=== PATIENT | female | born 1960 | race Caucasian/White ===

== ENCOUNTER → 2018-04-23 15:24 | Outpatient (CLI) | payer BC, SELFPAY ==
--- NOTE | 2018-04-23 | DI.MG.S_ITS ---
BILATERAL DIGITAL SCREENING MAMMOGRAM 3D/2D WITH CAD: 04/23/2018 CLINICAL: Routine screening. Comparison is made to exams dated: 03/17/2017 mammogram, 01/15/2016 mammogram, and 08/01/2014 mammogram - [facility]. The tissue of both breasts is predominantly fatty. Current study was also evaluated with a Computer Aided Detection (CAD) system. No significant masses, calcifications, or other findings are seen in either breast. There has been no significant interval change. IMPRESSION: NEGATIVE There is no mammographic evidence of malignancy. A 1 year screening mammogram is recommended. This exam was interpreted at Station ID: [id number]. NOTE: For mammograms, a report in lay terms will be sent to the patient. Approximately 15% of breast malignancies will not be visualized mammographically. In the management of a palpable breast mass, a negative mammogram must not discourage biopsy of a clinically suspicious lesion. Electronically Signed By: Robert bowser/jose manuel:04/23/2018 17:31:23 copy to: Jennifer Segal letter sent: Normal Exam ACR BI-RADS Category 1: Negative [id number]
== END ==
PROVIDERS: Family Provider Family Medicine; PCP Family Medicine; Visit Provider Family Medicine
DX: Z12.31 Encounter for screening mammogram for malignant neoplasm of breast (principal)
CPT/HCPCS: 77063; 77067

== ENCOUNTER → 2018-05-28 15:15 | Outpatient (CLI) | payer BC, SELFPAY ==
[2018-05-28 18:33] LABS: Thyroid Stimulating Hormone 2.27 uIU/mL (0.47-4.68)
== END ==
PROVIDERS: Visit Provider Internal Medicine
DX: E03.9 Hypothyroidism, unspecified (principal)
CPT/HCPCS: 36415; 84443

== ENCOUNTER → 2018-06-20 10:59 | Outpatient (CLI) | payer BC, SELFPAY ==
[2018-06-20 12:16] LABS: Add Manual Diff / Slide Review NO; Basophils Percent Auto 0.7 % (0-2); Hematocrit 41.3 % (36-46); Hemoglobin 14.1 g/dL (12.0-16.0); Mean Corpuscular HGB Conc 34.1 % (30-36); Mean Corpuscular Hemoglobin 27.9 PG (26-34); Mean Corpuscular Volume 81.7 fL (80-100); Monocytes Percent Auto 8.5 % (3-14); Neutrophils Absolute Auto 5000 /uL (3000-5900); Neutrophils Percent Auto 57.8 % (50-75); Platelet Count 353 X10^3/uL (150-400); Red Blood Cell Count 5.05 X10^6/uL (4.0-5.2); Red Cell Distribution Width 13.8 % (11.6-14.8); White Blood Cell Count 8.7 X10^3/uL (4.5-11.0)
[2018-06-20 12:33] LABS: Alanine Aminotransferase 29 IU/L (9-52); Albumin 4.1 g/dL (3.5-5.0); Albumin Globulin Ratio 1.3 (1.0-2.8); Alkaline Phosphatase 108 U/L (38-126); Aspartate Aminotransferase 23 IU/L (14-36); BUN Creatinine Ratio 18.6 (6-22); Bilirubin Total 0.4 mg/dL (0.2-1.3); Blood Urea Nitrogen 13 mg/dL (7-17); Calcium 9.1 mg/dL (8.4-10.2); Carbon Dioxide 30 mmol/L (22-32); Chloride 103 mmol/L (98-107); Cholesterol 178 mg/dL (140-199); Estimated Glomerular Filt Rate > 60.0 mL/min (>60); Globulin 3.1 g/dL (1.7-4.1); Glucose 98 mg/dL (70-100); HDL Cholesterol 42 mg/dL (40-60); HEMOLYSIS < 15 (0-50); LDL Cholesterol Calculated 106 mg/dL (<100); Sodium 143 mmol/L (137-145); Total Protein 7.2 g/dL (6.3-8.2); Triglycerides 151 mg/dL (35-150)
== END ==
PROVIDERS: Visit Provider Internal Medicine
DX: I10 Essential (primary) hypertension (principal); D72.829 Elevated white blood cell count, unspecified
CPT/HCPCS: 36415; 80053; 80061; 85025

== ENCOUNTER → 2018-11-09 12:46 | Outpatient (CLI) | payer BC, SELFPAY ==
--- NOTE | 2018-11-09 12:53 | DI.RAD.S_ITS ---
PROCEDURE: XR ABDOMEN 1V INDICATIONS: evaluate severity of constipation TECHNIQUE: One view of the abdomen acquired. COMPARISON: [facility] [place], [place], SPINE LUMB 6+VW, 06/20/2016, 15:21. FINDINGS: Surgical changes and devices: Laparoscopic gastric banding Bowel: Bowel gas pattern is normal. Mild to moderate stool Soft tissues: 3 mm left abdominal calcification is unchanged since 06/20/16 projecting in the region of the left kidney. Visualized solid organ contours appear normal in size. Bones: No suspicious bony lesions. Lateral curvature of the spine and scattered discogenic changes. IMPRESSION: No specific evidence of bowel obstruction seen at this time although if the patient's symptoms do not improve, continued surveillance with abdominal series radiographs could be performed. Dictated by: Kyler Mcpherson M.D. on 11/09/2018 at 15:06 Approved by: Kyler Mcpherson M.D. on 11/09/2018 at 15:07
[2018-11-09 15:08] LABS: Alanine Aminotransferase 33 IU/L (9-52); Albumin 4.3 g/dL (3.5-5.0); Albumin Globulin Ratio 1.4 (1.0-2.8); Alkaline Phosphatase 105 U/L (38-126); Aspartate Aminotransferase 25 IU/L (14-36); BUN Creatinine Ratio 14.3 (6-22); Bilirubin Total 0.4 mg/dL (0.2-1.3); Blood Urea Nitrogen 10 mg/dL (7-17); Calcium 9.4 mg/dL (8.4-10.2); Carbon Dioxide 29 mmol/L (22-32); Chloride 101 mmol/L (98-107); Estimated Glomerular Filt Rate > 60.0 mL/min (>60); Globulin 3.1 g/dL (1.7-4.1); Glucose 85 mg/dL (70-100); HEMOLYSIS < 15 (0-50); Lipase 49 U/L (23-300); Potassium 4.2 mmol/L (3.4-5.1); Sodium 139 mmol/L (137-145); Total Protein 7.4 g/dL (6.3-8.2)
== END ==
PROVIDERS: PCP Family Medicine; Visit Provider Family Medicine
DX: R10.9 Unspecified abdominal pain (principal); K59.00 Constipation, unspecified
CPT/HCPCS: 36415; 74018; 80053; 83690

== ENCOUNTER → 2018-12-20 13:57 | Outpatient (CLI) | payer BC, SELFPAY ==
--- NOTE | 2019-01-04 14:39 | P.HOLT.S_ITS ---
Key Punch Operator Report Referral & Results Date Patient Seen: 12/20/18 Requesting provider: Erica White Indication: Palpitations Duration of monitoring (days): 3 Diary information: There are no patient diary entries 2 patient triggered events associated with sinus rhythm and PACs Data: Minimum heart rate was 44 beats per minute at 10:35 on 12/22/2018 Maximum heart rate was 135 beats per minute at 14:41 on 12/22/2018 Less than 1% of identified beats were either supraventricular ventricular ectopic in origin Patient did have 8 runs of an atypical supraventricular tachycardia the fastest being 114 beats per minute and comprising 7 beats. The longest was 25.9 sec with a rate of 100 beats per minute Impression: No clear etiology for patient's reported palpitations. Supraventricular dysrhythmia as above was present however cannot be ruled out as a source of symptoms. Clinical correlation suggested
== END ==
PROVIDERS: PCP Family Medicine; Visit Provider Family Medicine
DX: R00.2 Palpitations (principal)
CPT/HCPCS: 0296T; 0298T

== ENCOUNTER 2019-01-25 14:30 | Outpatient (RCR) | payer BC, SELFPAY ==
--- NOTE | 2018-12-28 14:45 | PT.OPPOC ---
Current Diagnoses Pain in thoracic spine (12/28/18) Provider Visit Care Team Role Provider Type Erica White MD Primary Care Provider Physician Specialty: Family Practice Address: [address] [place] [address], [id number] Email: [email or web address] KEVIN Archibald Attending Provider Advanced Enrollment Eligibility Representative Specialty: Medical Address: [address] [place] [address], [id number] Email: Plan Of Care PT-OP-T Assessment and Plan Start: 12/28/18 16:34 Freq: Status: Active Protocol: Document 12/28/18 14:45 [facility] (Rec: 12/28/18 17:08 [facility] [email or web address]) Physical Therapy Assessment Rehab Potential Rehabilitation Potential Good Evaluation Complexity Number of Personal Factors/Comorbidities 1-2 Number of Body Systems Impaired 3 Clinical Presentation at Evaluation Stable Impairments Impairments Functional Mobility Pain Posture ROM Soft Tissue Mobility Strength Other Concerns Barriers to Rehabilitation pt to have hernia repair in January of 2019, may prolong treatment if on precautions s/ p surgical intervention Goals pain Impairment pain rated at 6/10 at highest with movements Short Term Goal (STG) Decrease pain to 3/10 or less with initial movements after prolonged sitting or sleeping. 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 lumbar/thoracic rotation Impairment impaired lumbothoracic rotation Information Technology Account Manager Goal (LTG) Restor normal R sided combined lumbothoracic rotation equal to the L side without c/o pain prior to d/c to tolerate functional movements with combined reaching and rotation of the thorax. LTG Duration 8 weeks UE weakness Impairment RUE weakness Short Term Goal (STG) R shoulder manual muscle testing 5/5, lower trapezius 4 /5. STG Duration 4 weeks [facility] Goal (LTG) R shoulder manual muscle testing 5/5 and lower trapezius at least 4+/5 to demonstrate improved scapular and shoulder stabilization. LTG Duration 8 weeks Assessment Summary Assessment Pt presents with impaired sitting and standing posture, as well as weakness with R lower trapezius manual muscle testing (and R sided abduction and flexion compared to the L ). Her pain with tenderness and increased tone in the lower trapezius and latissimus dorsi may indicate possible strain of this posterior thoracic musculature. Pt also with increased pain in R sided quadratus lumborum, which may be aggravated with recent episodes of R sided sciatic pain as well. Pt had positive sign of impingement of the R shoulder with Chan-Donald testing, but other impingement testing negative at this time for impingement. Pt would benefit from skilled physical therapy to decrease pain, improve lumbothoracic range of motion, improve sitting and standing posture and progress shoulder and scapulothoracic musculature to assist with return to work tasks and sleeping without issues. Physical Therapy Plan Frequency and Duration Frequency of Treatment 2x/Week Duration of Treatment 8 weeks Plan of Care Start Date 12/28/18 Plan of Care End Date 02/22/19 Therapeutic Interventions Therapeutic Interventions Aquatic Therapy Home Exercise Program Joint Mobilizations Manual Therapy Neuromuscular Re-education Patient/Caregiver Education Self-Care/Home Management Soft Tissue Mobilization Taping Therapeutic Activities Therapeutic Exercises Modalities Cold Pack/Ice Massage Electric Stimulation Hot Packs Ultrasound Next Visit Focus/Plan Next Note Type Treatment Note Next Visit Plan STR lat and lower trap, shoulder strengthening/ stabilization; quadruped thread the needle, prayer stretch; push-up plus vs wall initially. Plan of Care Dates Plan of Care Start Date 12/28/18 Plan of Care End Date 02/22/19 Please Sign and Return: I have reviewed this Plan of Care and certify that the skilled therapy services above are required to meet the patient?s needs. Physician Signature Date Printed Name and Credentials Clinical Instructor Signature Printed Name and Credentials
--- NOTE | 2018-12-28 14:45 | PT.OIE ---
Current Diagnoses Pain in thoracic spine (12/28/18) Past Medical History (Last Reviewed 10/01/18 @ 10:34 by Radha Srinivasan MD) Essential tremor (Chronic) Intermittent asthma (Chronic) Benign essential hypertension (Chronic) Hypothyroid (Chronic) HTN (hypertension) (Chronic) Seasonal allergies (Chronic) Past Surgical History (Last Reviewed 10/01/18 @ 10:34 by Radha Srinivasan MD) Hx of laparoscopic gastric banding (Resolved) Status post surgery (Resolved 07/23/08) Provider Visit Care Team Role Provider Type Erica White MD Primary Care Provider Physician Specialty: Family Practice Address: [address] [place] [address] Email: [email or web address] KEVIN Archibald Attending Provider Advanced Algebra Teacher Specialty: Medical Address: [address] [place] [address], [facility] Email: Physical Therapy Initial Evaluation PT-OP-A Visit Information Start: 12/28/18 16:34 Freq: Status: Active Protocol: Document 12/28/18 14:45 [facility] (Rec: 12/28/18 17:08 [facility] [email or web address]) Out-Patient Physical Therapy Visit Information Visit Information Visit Type Initial Evaluation Visit Start Time 14:45 Visit Stop Time 15:25 Total Visit Minutes 40 Visit Number 1 Number of MED AIDE Visits 0 Evaluation Information Evaluation Date 12/28/18 PT-OP-B Current Condition Start: 12/28/18 16:34 Freq: Status: Active Protocol: Document 12/28/18 14:45 [facility] (Rec: 12/28/18 17:08 [facility] [email or web address]) Current Condition History of Current Condition Onset Date 10/16/2018 Current Complaints R sided mid-low back pain History of Current Condition Pt is a 58 y/o female presenting to physical therapy with a c/o R sided mid to low back pain, onset 2017. Pt denies any JACK, notes that pain just occured at that time. She saw a chiropractor for one visit but felt he was too aggressive with his treatment. She states that her R side sciatica is aggravated off/on at this time also. 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 upon waking up when sleeping or prolonged sitting then getting up). She denies any changes in bowel/ bladder function, and states her blood work was WNL per her physician. Pt is R hand dominant. Pain comes and goes but other than going from prolonged sitting on sleeping then up and moving is when it is at its worst. She denies any shoot pain down or up the back/neck, but again does have a h/o sciatic on the R side and admits it still does cause some numbness in buttock region from time to time but no correlation she believes with this new pain. No imaging has been performed. She had radiographs done by her chiropractor. She has lost 10 lbs in the last 5 wks being on a plant-based diet and no sugar consumption. Prior Treatments and Tests chiropractor for 1 visit, but did not return, blood work reportedly negative by pt. Future Testing and Treatments Planned MRI if not improved with PT. Treatment Goals Patient/Caregiver Goals decrease pain Personal Factors Other Personal Factors That May Effect h/o R sided sciatica, OA, Therapy/Recovery current hernia (being repaired 01/26/19), occasional neck pain PT-OP-C Subjective Start: 12/28/18 16:34 Freq: Status: Active Protocol: Document 12/28/18 14:45 [facility] (Rec: 12/28/18 17:08 [facility] [email or web address]) OP-PT Subjective Patient Comments Patient Comments pt notes pain is somewhat better but still present Patient Reported Progress Improving Patient Questionnaires Oswestry Low Back Index Oswestry Score 24 Oswestry Impairment 20 to 39% Impaired (Score 20- 39) OP-PT Pain Assessment Location R sided mid-back Intensity 6 Scale Used Numeric (1 - 10) Description Aching Frequency Intermittent Pain Aggravating Factors Changing Position Pain Alleviating Factors Heat Exercise Massage Home Pain Medication Use Pain Medications Used No PT-OP-F Manual Assessment Start: 12/28/18 16:34 Freq: Status: Active Protocol: Document 12/28/18 14:45 [facility] (Rec: 12/28/18 17:08 [facility] [email or web address]) Manual Assessments Soft Tissue Assessment Soft Tissue Mobility Assessment tenderness to palpation: R QL, lower trapezius, latissimus dorsi PT-OP-J Posture/Palpation/Skin Start: 12/28/18 16:34 Freq: Status: Active Protocol: Document 12/28/18 14:45 [facility] (Rec: 12/28/18 17:08 [facility] [email or web address]) Posture Evaluation Comments Posture Comments moderate rounded shoulders, flattened cervical spine, increased kyphosis in thoracic spine, increased lordosis in lumbar spine; SB R with elevated R shoulder in sitting PT-OP-K Range of Motion Start: 12/28/18 16:34 Freq: Status: Active Protocol: Document 12/28/18 14:45 [facility] (Rec: 12/28/18 17:08 [facility] [email or web address]) Lumbar Spine Range of Motion Lumbar Spine Active Percentage Comments combined lumbar and thoracic rotation: 100% L and 75% R with pain on the R with rotation Shoulder Goniometric Range of Motion Shoulder Measured in Degrees Left Active Shoulder ROM WFL Yes Testing Position Sitting Right Active Shoulder ROM WFL Yes Testing Position Sitting PT-OP-L Special Tests Start: 12/28/18 16:34 Freq: Status: Active Protocol: Document 12/28/18 14:45 [facility] (Rec: 12/28/18 17:08 [facility] [email or web address]) Special Tests Cervical Spine Special Tests Foraminal Compression Test Results negative B Spurling's Test Test Results negative B Shoulder Special Tests Lift-Off Rotator Cuff Test Results negative B Empty Can Test Results negative B Chan Donald Impingement Test Results positive R Neer Impingement Test Results negative B Elevation Impingement Test Results negative B PT-OP-M Strength Start: 12/28/18 16:34 Freq: Status: Active Protocol: Document 12/28/18 14:45 [facility] (Rec: 12/28/18 17:08 [facility] [email or web address]) Scapula Strength Scapula Manual Muscle Testing Right Elevation (C4) 5 Normal Left Elevation (C4) 5 Normal Shoulder Strength Shoulder Manual Muscle Testing Right Flexion 4+ Good+ Abduction (C5) 4 Good External Rotation 5 Normal Internal Rotation 5 Normal Comments lower trap 4-/5 d/t pain Left Flexion 5 Normal Abduction (C5) 5 Normal External Rotation 5 Normal Internal Rotation 5 Normal Comments lower trap 5/5 PT-OP-R Modalities Start: 12/28/18 16:34 Freq: Status: Active Protocol: Document 12/28/18 14:45 [facility] (Rec: 12/28/18 17:08 [facility] [email or web address]) Hot Pack/Cold Pack Treatment Hot Pack Patient Position Sitting Treatment Duration (minutes) 10 PT-OP-T Assessment and Plan Start: 12/28/18 16:34 Freq: Status: Active Protocol: Document 12/28/18 14:45 [facility] (Rec: 12/28/18 17:08 [facility] [email or web address]) Physical Therapy Assessment Rehab Potential Rehabilitation Potential Good Evaluation Complexity Number of Personal Factors/Comorbidities 1-2 Number of Body Systems Impaired 3 Clinical Presentation at Evaluation Stable Impairments Impairments Functional Mobility Pain Posture ROM Soft Tissue Mobility Strength Other Concerns Barriers to Rehabilitation pt to have hernia repair in January of 2019, may prolong treatment if on precautions s/ p surgical intervention Goals pain Impairment pain rated at 6/10 at highest with movements Short Term Goal (STG) Decrease pain to 3/10 or less with initial movements after prolonged sitting or sleeping. 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 lumbar/thoracic rotation Impairment impaired lumbothoracic rotation Project Mgr Goal (LTG) Restor normal R sided combined lumbothoracic rotation equal to the L side without c/o pain prior to d/c to tolerate functional movements with combined reaching and rotation of the thorax. LTG Duration 8 weeks UE weakness Impairment RUE weakness Short Term Goal (STG) R shoulder manual muscle testing 5/5, lower trapezius 4 /5. STG Duration 4 weeks Project Mgr Goal (LTG) R shoulder manual muscle testing 5/5 and lower trapezius at least 4+/5 to demonstrate improved scapular and shoulder stabilization. LTG Duration 8 weeks Assessment Summary Assessment Pt presents with impaired sitting and standing posture, as well as weakness with R lower trapezius manual muscle testing (and R sided abduction and flexion compared to the L ). Her pain with tenderness and increased tone in the lower trapezius and latissimus dorsi may indicate possible strain of this posterior thoracic musculature. Pt also with increased pain in R sided quadratus lumborum, which may be aggravated with recent episodes of R sided sciatic pain as well. Pt had positive sign of impingement of the R shoulder with Chan-Donald testing, but other impingement testing negative at this time for impingement. Pt would benefit from skilled physical therapy to decrease pain, improve lumbothoracic range of motion, improve sitting and standing posture and progress shoulder and scapulothoracic musculature to assist with return to work tasks and sleeping without issues. Physical Therapy Plan Frequency and Duration Frequency of Treatment 2x/Week Duration of Treatment 8 weeks Plan of Care Start Date 12/28/18 Plan of Care End Date 02/22/19 Therapeutic Interventions Therapeutic Interventions Aquatic Therapy Home Exercise Program Joint Mobilizations Manual Therapy Neuromuscular Re-education Patient/Caregiver Education Self-Care/Home Management Soft Tissue Mobilization Taping Therapeutic Activities Therapeutic Exercises Modalities Cold Pack/Ice Massage Electric Stimulation Hot Packs Ultrasound Next Visit Focus/Plan Next Note Type Treatment Note Next Visit Plan STR lat and lower trap, shoulder strengthening/ stabilization; quadruped thread the needle, prayer stretch; push-up plus vs wall initially.
--- NOTE | 2019-01-25 14:30 | PT.OTN ---
Current Diagnoses Pain in thoracic spine (01/25/19) Physical Therapy Treatment Note PT-OP-A Visit Information Start: 12/28/18 16:34 Freq: Status: Active Protocol: Document 01/25/19 14:30 [facility] (Rec: 01/25/19 15:10 [facility] [email or web address]) Out-Patient Physical Therapy Visit Information Visit Information Visit Type Treatment Note Visit Start Time 14:30 Visit Stop Time 15:00 Total Visit Minutes 30 Visit Number 2 Number of CATH LABORATORY TECHNICIAN Visits 0 Evaluation Information Evaluation Date 12/28/18 PT-OP-B Current Condition Start: 12/28/18 16:34 Freq: Status: Active Protocol: Document 12/28/18 14:45 [facility] (Rec: 12/28/18 17:08 [facility] [email or web address]) Current Condition History of Current Condition Onset Date 10/16/2018 Current Complaints R sided mid-low back pain History of Current Condition Pt is a 58 y/o female presenting to physical therapy with a c/o R sided mid to low back pain, onset 2017. Pt denies any JACK, notes that pain just occured at that time. She saw a chiropractor for one visit but felt he was too aggressive with his treatment. She states that her R side sciatica is aggravated off/on at this time also. 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 upon waking up when sleeping or prolonged sitting then getting up). She denies any changes in bowel/ bladder function, and states her blood work was WNL per her physician. Pt is R hand dominant. Pain comes and goes but other than going from prolonged sitting on sleeping then up and moving is when it is at its worst. She denies any shoot pain down or up the back/neck, but again does have a h/o sciatic on the R side and admits it still does cause some numbness in buttock region from time to time but no correlation she believes with this new pain. No imaging has been performed. She had radiographs done by her chiropractor. She has lost 10 lbs in the last 5 wks being on a plant-based diet and no sugar consumption. Prior Treatments and Tests chiropractor for 1 visit, but did not return, blood work reportedly negative by pt. Future Testing and Treatments Planned MRI if not improved with PT. Treatment Goals Patient/Caregiver Goals decrease pain Personal Factors Other Personal Factors That May Effect h/o R sided sciatica, OA, Therapy/Recovery current hernia (being repaired 01/26/19), occasional neck pain PT-OP-C Subjective Start: 12/28/18 16:34 Freq: Status: Active Protocol: Document 01/25/19 14:30 [facility] (Rec: 01/25/19 15:10 [facility] [email or web address]) OP-PT Subjective Patient Comments Patient Comments Pt states that her back is much better. She has lost 15 lbs since out last visit. She is walking outdoors but does get some increased sciatic issues. Pt postponed her hernia repair as her surgeon is leaving the practice. PT-OP-F Manual Assessment Start: 12/28/18 16:34 Freq: Status: Active Protocol: Document 12/28/18 14:45 [facility] (Rec: 12/28/18 17:08 [facility] [email or web address]) Manual Assessments Soft Tissue Assessment Soft Tissue Mobility Assessment tenderness to palpation: R QL, lower trapezius, latissimus dorsi PT-OP-J Posture/Palpation/Skin Start: 12/28/18 16:34 Freq: Status: Active Protocol: Document 12/28/18 14:45 [facility] (Rec: 12/28/18 17:08 [facility] [email or web address]) Posture Evaluation Comments Posture Comments moderate rounded shoulders, flattened cervical spine, increased kyphosis in thoracic spine, increased lordosis in lumbar spine; SB R with elevated R shoulder in sitting PT-OP-K Range of Motion Start: 12/28/18 16:34 Freq: Status: Active Protocol: Document 12/28/18 14:45 [facility] (Rec: 12/28/18 17:08 [facility] [email or web address]) Lumbar Spine Range of Motion Lumbar Spine Active Percentage Comments combined lumbar and thoracic rotation: 100% L and 75% R with pain on the R with rotation Shoulder Goniometric Range of Motion Shoulder Measured in Degrees Left Active Shoulder ROM WFL Yes Testing Position Sitting Right Active Shoulder ROM WFL Yes Testing Position Sitting PT-OP-L Special Tests Start: 12/28/18 16:34 Freq: Status: Active Protocol: Document 12/28/18 14:45 [facility] (Rec: 12/28/18 17:08 [facility] [email or web address]) Special Tests Cervical Spine Special Tests Foraminal Compression Test Results negative B Spurling's Test Test Results negative B Shoulder Special Tests Lift-Off Rotator Cuff Test Results negative B Empty Can Test Results negative B Chan Donald Impingement Test Results positive R Neer Impingement Test Results negative B Elevation Impingement Test Results negative B PT-OP-M Strength Start: 12/28/18 16:34 Freq: Status: Active Protocol: Document 12/28/18 14:45 [facility] (Rec: 12/28/18 17:08 [facility] [email or web address]) Scapula Strength Scapula Manual Muscle Testing Right Elevation (C4) 5 Normal Left Elevation (C4) 5 Normal Shoulder Strength Shoulder Manual Muscle Testing Right Flexion 4+ Good+ Abduction (C5) 4 Good External Rotation 5 Normal Internal Rotation 5 Normal Comments lower trap 4-/5 d/t pain Left Flexion 5 Normal Abduction (C5) 5 Normal External Rotation 5 Normal Internal Rotation 5 Normal Comments lower trap 5/5 PT-OP-Q Treatments Start: 12/28/18 16:34 Freq: Status: Active Protocol: Document 01/25/19 14:30 [facility] (Rec: 01/25/19 15:10 [facility] [email or web address]) Manual Therapy Treatment Soft Tissue Mobilization R piriformis and gluteals Mobilization Type Strumming Sustained Pressure Trigger Point Release Intensity/Depth Moderate Body Position Sidelying thoracolumbar paraspinals Mobilization Type Rolling Trigger Point Release Intensity/Depth Moderate Body Position Sidelying Comments R sided musculature PT-OP-R Modalities Start: 12/28/18 16:34 Freq: Status: Active Protocol: Document 12/28/18 14:45 [facility] (Rec: 12/28/18 17:08 [facility] [email or web address]) Hot Pack/Cold Pack Treatment Hot Pack Patient Position Sitting Treatment Duration (minutes) 10 PT-OP-T Assessment and Plan Start: 12/28/18 16:34 Freq: Status: Active Protocol: Document 01/25/19 14:30 [facility] (Rec: 01/25/19 15:10 [facility] [email or web address]) Physical Therapy Assessment Assessment Summary Assessment Pt with slight to no tension in lower trapezius and latissimus today, but does have tension in thoracolumbar paraspinals to gluteals and piriformis on the R. She tolerated soft tissue release well, with less discomfort post-treatment. Physical Therapy Plan Frequency and Duration Frequency of Treatment 2x/Week Duration of Treatment 8 weeks Plan of Care Start Date 12/28/18 Plan of Care End Date 02/22/19 Next Visit Focus/Plan Next Note Type Treatment Note Next Visit Plan quadruped thread the needle, prayer stretch, push-up plus vs wall
--- NOTE | 2019-01-30 14:07 | PT.OPDS ---
Current Diagnoses Pain in thoracic spine (01/25/19) Provider Visit Care Team Role Provider Type Erica White MD Primary Care Provider Physician Specialty: Family Practice Address: [address] [place] [address], [id number] Email: [email or web address] [email or web address] Archibald Attending Provider [employer] Specialty: Medical Address: [address] [place] [address], [id number] Email: Visit Number Visit Number 2 Discharge Summary PT-OP-B Current Condition Start: 12/28/18 16:34 Freq: Status: Active Protocol: Document 12/28/18 14:45 [facility] (Rec: 12/28/18 17:08 [facility] [email or web address]) Current Condition History of Current Condition Onset Date 10/16/2018 Current Complaints R sided mid-low back pain History of Current Condition Pt is a 58 y/o female presenting to physical therapy with a c/o R sided mid to low back pain, onset 2017. Pt denies any JACK, notes that pain just occured at that time. She saw a chiropractor for one visit but felt he was too aggressive with his treatment. She states that her R side sciatica is aggravated off/on at this time also. 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 upon waking up when sleeping or prolonged sitting then getting up). She denies any changes in bowel/ bladder function, and states her blood work was WNL per her physician. Pt is R hand dominant. Pain comes and goes but other than going from prolonged sitting on sleeping then up and moving is when it is at its worst. She denies any shoot pain down or up the back/neck, but again does have a h/o sciatic on the R side and admits it still does cause some numbness in buttock region from time to time but no correlation she believes with this new pain. No imaging has been performed. She had radiographs done by her chiropractor. She has lost 10 lbs in the last 5 wks being on a plant-based diet and no sugar consumption. Prior Treatments and Tests chiropractor for 1 visit, but did not return, blood work reportedly negative by pt. Future Testing and Treatments Planned MRI if not improved with PT. Treatment Goals Patient/Caregiver Goals decrease pain Personal Factors Other Personal Factors That May Effect h/o R sided sciatica, OA, Therapy/Recovery current hernia (being repaired 01/26/19), occasional neck pain PT-OP-C Subjective Start: 12/28/18 16:34 Freq: Status: Active Protocol: Document 01/30/19 14:03 RCC (Rec: 01/30/19 14:07 RCC [email or web address]) OP-PT Subjective Patient Comments Patient Comments Pt called and canceled all remaining appointments, noting that she is feeling much better and wishes to d/c at this time. PT-OP-F Manual Assessment Start: 12/28/18 16:34 Freq: Status: Active Protocol: Document 12/28/18 14:45 [facility] (Rec: 12/28/18 17:08 [facility] [email or web address]) Manual Assessments Soft Tissue Assessment Soft Tissue Mobility Assessment tenderness to palpation: R QL, lower trapezius, latissimus dorsi PT-OP-J Posture/Palpation/Skin Start: 12/28/18 16:34 Freq: Status: Active Protocol: Document 12/28/18 14:45 RCC (Rec: 12/28/18 17:08 [facility] [email or web address]) Posture Evaluation Comments Posture Comments moderate rounded shoulders, flattened cervical spine, increased kyphosis in thoracic spine, increased lordosis in lumbar spine; SB R with elevated R shoulder in sitting PT-OP-K Range of Motion Start: 12/28/18 16:34 Freq: Status: Active Protocol: Document 12/28/18 14:45 [facility] (Rec: 12/28/18 17:08 [facility] [email or web address]) Lumbar Spine Range of Motion Lumbar Spine Active Percentage Comments combined lumbar and thoracic rotation: 100% L and 75% R with pain on the R with rotation Shoulder Goniometric Range of Motion Shoulder Measured in Degrees Left Active Shoulder ROM WFL Yes Testing Position Sitting Right Active Shoulder ROM WFL Yes Testing Position Sitting PT-OP-L Special Tests Start: 12/28/18 16:34 Freq: Status: Active Protocol: Document 12/28/18 14:45 [facility] (Rec: 12/28/18 17:08 [facility] [email or web address]) Special Tests Cervical Spine Special Tests Foraminal Compression Test Results negative B Spurling's Test Test Results negative B Shoulder Special Tests Lift-Off Rotator Cuff Test Results negative B Empty Can Test Results negative B Chan Donald Impingement Test Results positive R Neer Impingement Test Results negative B Elevation Impingement Test Results negative B PT-OP-M Strength Start: 12/28/18 16:34 Freq: Status: Active Protocol: Document 12/28/18 14:45 RCC (Rec: 12/28/18 17:08 [facility] [id number]) Scapula Strength Scapula Manual Muscle Testing Right Elevation (C4) 5 Normal Left Elevation (C4) 5 Normal Shoulder Strength Shoulder Manual Muscle Testing Right Flexion 4+ Good+ Abduction (C5) 4 Good External Rotation 5 Normal Internal Rotation 5 Normal Comments lower trap 4-/5 d/t pain Left Flexion 5 Normal Abduction (C5) 5 Normal External Rotation 5 Normal Internal Rotation 5 Normal Comments lower trap 5/5 PT-OP-T Assessment and Plan Start: 12/28/18 16:34 Freq: Status: Active Protocol: Document 01/30/19 14:03 [facility] (Rec: 01/30/19 14:07 [facility] [email or web address]) Physical Therapy Assessment Assessment Summary Assessment Pt at this time is no longer having c/o pain in R sided mid -back. She did have some mild c/o R sided low back and sciatic pain which is a chronic issues she feels she is controlling well on her own at this time. Pt requested d/ c from physical therapy at this time. Physical Therapy Plan Discharge Physical Therapy Discharge Reasons Patient Request
== END 2019-01-26 12:09 ==
LOC: PHYS 14:30
PROVIDERS: PCP Family Medicine; Visit Provider Registered Nurse
DX: M54.6 Pain in thoracic spine (principal)
CPT/HCPCS: 97010; 97140; 97161

== ENCOUNTER → 2019-01-28 10:07 | Outpatient (CLI) | payer BC, SELFPAY ==
[2019-01-28 12:09] LABS: WBC Urine None Seen (0-5/HPF)
[2019-01-28 12:26] LABS: Appearance Urine UA CLEAR; Bilirubin Urine UA NEGATIVE (NEGATIVE); Color Urine UA YELLOW; Glucose Urine UA TRACE g/dL (Negative); Ketones Urine UA TRACE (NEGATIVE); Leukocyte Esterase Urine UA TRACE (NEGATIVE); Nitrite Urine UA POSITIVE (Negative); Occult Blood Urine UA 1+ (Negative); Protein Urine UA 2+ (Negative); Specific Gravity Urine UA 1.025 (1.000-1.035)
[2019-01-28 12:31] LABS: Bacteria Urine Many (>30); Culture Indicated Urine Specimen Cultured; RBC Urine 5-10/HPF (0-5/HPF)
== END ==
PROVIDERS: PCP Family Medicine; Visit Provider Registered Nurse
DX: N39.0 Urinary tract infection, site not specified (principal)
CPT/HCPCS: 81001; 87086

== ENCOUNTER → 2019-06-10 10:45 | Outpatient (CLI) | payer BC, SELFPAY ==
--- NOTE | 2019-06-10 | DI.MG.S_ITS ---
BILATERAL DIGITAL SCREENING MAMMOGRAM 3D/2D WITH CAD: 06/10/2019 CLINICAL: Routine screening. Comparison is made to exams dated: 04/23/2018 mammogram, 03/17/2017 mammogram, and 01/15/2016 mammogram - [facility]. There are scattered fibroglandular elements in both breasts. Current study was also evaluated with a Computer Aided Detection (CAD) system. There are benign calcifications in both breasts. No significant masses, calcifications, or other findings are seen in either breast. There has been no significant interval change. IMPRESSION: There is no mammographic evidence of malignancy. A 1 year screening mammogram is recommended. This exam was interpreted at Station ID: [id number]. NOTE: For mammograms, a report in lay terms will be sent to the patient. Approximately 15% of breast malignancies will not be visualized mammographically. In the management of a palpable breast mass, a negative mammogram must not discourage biopsy of a clinically suspicious lesion. Electronically Signed By: Latrell willams/jose manuel:06/10/2019 11:57:20 letter sent: Normal Exam ACR BI-RADS Category 2: Benign Finding(s) 3342F
== END ==
PROVIDERS: PCP Family Medicine; Visit Provider Family Medicine
DX: Z12.31 Encounter for screening mammogram for malignant neoplasm of breast (principal)
CPT/HCPCS: 77063; 77067

== ENCOUNTER → 2019-08-20 17:41 | Outpatient (CLI) | payer BC, SELFPAY | PROVIDERS: PCP Family Medicine; Visit Provider Family Medicine | DX: R68.89 Other general symptoms and signs (principal) | CPT/HCPCS: 36415; 80299 ==

== ENCOUNTER → 2019-08-21 07:48 | Outpatient (CLI) | payer BC, SELFPAY | PROVIDERS: PCP Family Medicine; Visit Provider Family Medicine | DX: R68.89 Other general symptoms and signs (principal) | CPT/HCPCS: 36415; 80299 ==

== ENCOUNTER → 2019-09-09 11:03 | Outpatient (CLI) | payer BC, SELFPAY ==
[2019-09-09 13:44] LABS: Thyroid Stimulating Hormone 1.07 uIU/mL (0.47-4.68)
== END ==
PROVIDERS: PCP Family Medicine; Visit Provider Family Medicine
DX: E03.9 Hypothyroidism, unspecified (principal)
CPT/HCPCS: 36415; 84443

== ENCOUNTER → 2019-09-28 12:54 | Outpatient (CLI) | payer BC, SELFPAY ==
--- NOTE | 2019-09-28 12:55 | DI.RAD.S_ITS ---
PROCEDURE: XR CHEST 2V INDICATIONS: R sided middle lung field rales crackles TECHNIQUE: 2 views of the chest were acquired. COMPARISON: None. FINDINGS: Surgical changes and devices: None. Lungs and pleura: Lungs are clear. No pleural effusions or pneumothorax. Mediastinum: Mediastinal contours are normal. Heart size is normal. Bones and chest wall: No suspicious bony abnormalities. Soft tissues appear unremarkable. IMPRESSION: 1. No acute cardiopulmonary disease. Dictated by: Didier Chaves M.D. on 09/28/2019 at 12:18 Approved by: Didier Chaves M.D. on 09/28/2019 at 12:19
== END ==
PROVIDERS: Family Provider Family Medicine; PCP Family Medicine; Visit Provider Physician Assistant
DX: R05 Cough (principal)
CPT/HCPCS: 71046

== ENCOUNTER → 2019-10-03 20:09 | Outpatient (CLI) | payer BC, SELFPAY ==
--- NOTE | 2019-10-03 | DI.MRI.S_ITS ---
PROCEDURE: MR ANKLE RT WO CON INDICATIONS: pain in right foot TECHNIQUE: Noncontrast sagittal T1 spin echo and T2 fast spin echo with fat saturation, axial proton density fast spin echo and T2 fast spin echo with fat saturation, coronal T1 spin echo and T2 fast spin echo with fat saturation through the ankle/hindfoot. COMPARISON: [facility] [place], CR, XR CALCANEUS RIGHT, 09/17/2019, 9:21. FINDINGS: Image quality: Excellent. Bones and joints: No bone marrow contusions or fractures. No hindfoot coalitions. No osteochondral injuries of the talar dome. No pathologic joint effusions. Degenerative cystic change present at the lateral malleolus. Medial structures: The posterior tibialis, flexor digitorum longus, and flexor hallucis longus tendons are intact. Mild posterior tibialis flexor digitorum longus tenosynovitis The posterior tibial neurovascular bundle appears normal within the tarsal tunnel, without extrinsic mass effect. The deep layer (anterior and posterior tibiotalar ligaments) and superficial layer (tibionavicular, tibiospring, and tibiocalcaneal ligaments) of the deltoid ligament appear normal. The spring ligament components (superomedial calcaneonavicular, medioplantar oblique calcaneonavicular, and inferoplantar longitudinal ligaments) are intact. Lateral structures: The anterior talofibular mildly thickened raising the possibility of chronic appearing sprain The calcaneofibular, and posterior talofibular ligaments appear intact. More superiorly, the anterior and posterior tibiofibular ligaments appear intact, as is the intermalleolar ligament. The tibiofibular syndesmosis is normal in width at 2 mm or less. The peroneus longus tendon appears intact. Minimal peroneus brevis tendinopathy Adjacent bony peroneal tubercle and retrotrochlear prominence are normal in size. The sinus tarsi demonstrates normal fatty signal, without edema, fibrosis, or cyst formation. Visualized sinus tarsi components (cervical ligament, interosseous talocalcaneal ligament, roots of the inferior extensor retinaculum) appear normal. The calcaneonavicular and calcaneocuboid components of the bifurcate ligament appear intact. The dorsal calcaneocuboid ligament appears intact. Anterior structures: The tibialis anterior, extensor hallucis longus, and extensor digitorum longus tendons appear intact. The dorsal talonavicular ligament appears intact. Posterior and plantar structures: Achilles tendon is largely intact although there is a retrocalcaneal bursal fluid and mild intrasubstance signal change at the distal insertion suggestive of low-grade insertional tendinopathy There is marked medial band plantar fasciitis, with thickening and intrasubstance signal change at the calcaneal attachment. There is mild reactive marrow edema. IMPRESSION: Severe medial band plantar fasciitis Mild insertional Achilles tendinopathy Mild posterior tibialis and flexor digitorum longus tenosynovitis Mild peroneus brevis tendinopathy Dictated by: Kyler Mcpherson M.D. on 10/04/2019 at 10:20 Approved by: Kyler Mcpherson M.D. on 10/04/2019 at 11:00
== END ==
PROVIDERS: Family Provider Family Medicine; PCP Family Medicine; Visit Provider Podiatrist
DX: M79.671 Pain in right foot (principal); M72.2 Plantar fascial fibromatosis; M65.871 Other synovitis and tenosynovitis, right ankle and foot
CPT/HCPCS: 73721

== ENCOUNTER 2019-12-07 06:25 | Observation (INO) | payer BC, SELFPAY ==
[2019-12-07] VITALS (9 sets, daily range): BP systolic 112–147; BP diastolic 58–88; PULSE 84–119; RESP 16–19; TEMP 36.1–36.9; O2SAT 95–100; BMI 49.4
--- NOTE | 2019-12-07 06:40 | ED_ITS ---
HPI - Abdominal Pain <Yfn Odom DO - Last Filed: 12/08/19 06:06> General Chief Complaint: Abdominal Pain Stated Complaint: abdominal pain 6 hrs, has hernia, vomiting Time Seen by Provider: 12/07/19 06:25 Source: patient Mode of arrival: Ambulatory Limitations: no limitations History of Present Illness HPI narrative: Female nonsmoker with history of asthma, umbilical hernia and gastric sleeve surgery presents with her in the chief complaint of worsening gastrointestinal symptoms since about 10 30 last night. Up until last evening she had been in her normal state of health when she started developing significant abdominal pain associated with nausea, vomiting and diarrhea. She states her pain is extreme and seems to come and very intense waves, also stating that it is provoked by motion and often improved by rest. MD complaint: abdominal pain Pain Consistency: intermittent Location: diffuse Severity: severe Quality: stabbing Radiation: none Relieving factors: bowel movement and rest Exacerbating factors: movement Associated symptoms: nausea, vomiting and diarrhea Related Data Home Medications Medication Instructions Recorded Confirmed cholecalciferol (vitamin D3) PO 06/08/18 12/04/19 co q enzyme PO 06/08/18 12/04/19 curica PO 06/08/18 12/04/19 multivitamin PO 06/08/18 12/04/19 omega 3 PO 06/08/18 12/04/19 phytonadione (vitamin K1) PO 06/08/18 12/04/19 potassium PO 06/08/18 12/04/19 probiotic PO 06/08/18 12/04/19 magnesium 200 mg tablet 200 mg PO DAILY 11/05/18 12/07/19 Qvar 2 puff IH BID 12/07/19 12/07/19 albuterol sulfate [Ventolin HFA] 2 puff INHALATION Q4HR 12/07/19 12/07/19 Previous Rx's Medication Instructions Recorded triamterene 37.5 1 cap PO QDAY #90 tab 03/13/19 mg-hydrochlorothiazide 25 mg capsule levothyroxine 50 mcg tablet See Rx Instructions .ROUTE 09/10/19 .COMPLEX #90 tab losartan 50 mg tablet 50 mg PO DAILY #30 tab 11/11/19 Allergies Allergy/AdvReac Type Severity Reaction Status Date / Time erythromycin base Allergy Mild Rash Verified 12/04/19 15:53 [ERYTHROMYCIN BASE] Review of Systems <Yfn Odom DO - Last Filed: 12/08/19 06:06> Constitutional Constitutional: Denies chills, Denies fatigue, Denies fever(s), Denies frequent falls, Denies lethargy and Denies weakness Eyes Eyes: Denies change in vision, Denies eye discharge, Denies irritation and Denies loss of vision ENT Ears, Nose, Mouth, and Throat: Denies change in voice, Denies dizziness, Denies neck pain, Denies sore throat and Denies throat swelling Cardiovascular Cardiovascular: Denies chest pain, Denies irregular heart rhythm, Denies lightheadedness, Denies palpitations, Denies dyspnea, Denies dyspnea on exertion and Denies orthopnea Respiratory Respiratory: Denies cough, Denies dyspnea, Denies dyspnea on exertion and Denies wheezing Gastrointestinal Gastrointestinal: Reports abdominal pain, Denies change in bowel habits, Reports diarrhea, Reports nausea and Denies vomiting Genitourinary Genitourinary: Denies hematuria, Denies flank pain, Denies urinary incontinence and Denies urinary urgency Musculoskeletal Musculoskeletal: Denies back pain, Denies muscle weakness, Denies neck pain, Denies numbness and Denies tingling Integumentary/Breasts Skin/Breast: Denies pruritus, Denies erythema, Denies rash and Denies wounds Neurologic Neurologic: Denies behavioral changes, Denies confusion, Denies dizziness, Denies frequent falls, Denies loss of vision, Denies numbness, Denies tingling and Denies weakness Psychiatric Psychiatric: Denies anxiety, Denies behavioral changes, Denies confusion, Denies depression, Denies homicidal ideation and Denies suicidal ideation Endocrine Endocrine: Denies fatigue, Denies flushing and Denies palpitations Hematologic/Lymphatic Hematologic/Lymphatic: Denies easy bruising Allergic/Immunologic Allergic/Immunologic: Denies urticaria, Denies throat swelling and Denies wheezing Patient History <Yfn Odom DO - Last Filed: 12/08/19 06:06> Medical History Benign essential hypertension (Chronic) Essential tremor (Chronic) HTN (hypertension) (Chronic) Hypothyroid (Chronic) Intermittent asthma (Chronic) Kidney stones (Acute) Palpitations (Acute) Paroxysmal SVT (supraventricular tachycardia) (Acute) Seasonal allergies (Chronic) Surgical History Hx of laparoscopic gastric banding (Resolved ~2004) Hx of lithotripsy (Acute) S/P excision of lipoma (Acute 10/11/16) Status post surgery (Resolved 07/23/08) Family History Father Malignant neoplasm of colon, unspecified part of colon Family/Other Tremor of unknown origin Social History marital status: household members: spouse and children occupational status: employed Smoking Status: Never smoker alcohol intake: current substance use type: does not use Smoking Status: Never smoker Substance Use Type: does not use Exam <Yfn Odom DO - Last Filed: 12/08/19 06:06> Narrative Exam Narrative: GENERAL: [59] year old patient appears stated age. Well- nourished, well-developed patient, in obvious distress, pacing in the room, cl utching her abdomen HEAD: Atraumatic. Normocephalic. EYES: Pupils equal round and reactive. Extraocular motions intact. No scleral icterus. No injection or drainage. ENT: Nose without bleeding, purulent drainage. Throat without erythema, tonsillar hypertrophy or exudate. Airway patent. NECK: Trachea midline. Non tender CARDIOVASCULAR: Regular rate and rhythm without murmurs, gallops, or rubs. RESPIRATORY: Clear to auscultation. Breath sounds equal bilaterally. No wheezes, rales, or rhonchi. GASTROINTESTINAL: Abdomen soft, tender periumbilical and epigastrum, nondistended. EXTREMITIES: No edema or joint tenderness. BACK: Nontender without deformity or crepitance. No flank tenderness. NEURO: AOx3. SKIN: No rash or erythema of visible areas Initial Vital Signs Initial Vital Signs: Vital Signs Temperature 97 F L 12/07/19 06:33 Pulse Rate 119 H 12/07/19 06:33 Respiratory Rate 18 12/07/19 06:33 Blood Pressure 147/85 H 12/07/19 06:33 Pulse Oximetry 100 12/07/19 06:33 <Tee Ulrich MD - Last Filed: 12/08/19 20:48> Initial Vital Signs Initial Vital Signs: Vital Signs Temperature 97 F L 12/07/19 06:33 Pulse Rate 119 H 12/07/19 06:33 Respiratory Rate 18 12/07/19 06:33 Blood Pressure 147/85 H 12/07/19 06:33 Pulse Oximetry 100 12/07/19 06:33 Course <Yfn Odom DO - Last Filed: 12/08/19 06:06> Orders Ordered: Discontinued Medications Acetaminophen (Tylenol) 650 mg PO Q6HR PRN PRN Reason: Fever/Mild Pain (1-3) Last Admin: 12/08/19 10:23 Dose: 650 mg Documented by: Admin: 12/07/19 21:17 Dose: 650 mg Documented by: ABDIRIZAK Hydrocodone Bitart/Acetaminophen (Laie 5/325) 2 tab PO Q4HR PRN PRN Reason: Pain, Severe (7-10) Albuterol (Ventolin Hfa) 2 puff INH RTQ4HR PRN PRN Reason: Shortness Of Breath Albuterol (Ventolin Hfa) 2 puff INH RTQ4HR PRN PRN Reason: Shortness Of Breath Beclomethasone Dipropionate (Qvar) 2 puff INH Q4H PRN PRN Reason: Shortness Of Breath Or Wheezing Beclomethasone Dipropionate (Qvar) 2 puff INH RTBID PRN PRN Reason: Shortness Of Breath Or Wheezing Heparin Sodium (Porcine) (Heparin) 5,000 unit SUBCUT BID LACIE Last Admin: 12/08/19 10:24 Dose: Not Given Documented by: Admin: 12/07/19 20:32 Dose: Not Given Documented by: ABDIRIZAK Hydromorphone HCl (Dilaudid) 0.5 mg IV NOW ONE Stop: 12/07/19 06:41 Last Admin: 12/07/19 06:46 Dose: 0.5 mg Documented by: JOE Hydromorphone HCl (Dilaudid) 1 mg IV NOW ONE Stop: 12/07/19 07:44 Last Admin: 12/07/19 07:59 Dose: 1 mg Documented by: TONYA Hydromorphone HCl (Dilaudid) 0.5 mg IV NOW ONE Stop: 12/07/19 09:06 Last Admin: 12/07/19 09:14 Dose: 0.5 mg Documented by: DANIELITO Hydromorphone HCl (Dilaudid) 0.5 mg IV Q6HR PRN PRN Reason: Pain, Moderate (4-6) Last Admin: 12/07/19 12:50 Dose: 0.5 mg Documented by: LINDA Hydromorphone HCl (Dilaudid) 0.5 mg IV Q4HR PRN PRN Reason: Pain, Moderate (4-6) Hydromorphone HCl (Dilaudid) 0.5 mg IV Q4H PRN PRN Reason: Pain, Moderate (4-6) Last Admin: 12/07/19 21:13 Dose: 0.5 mg Documented by: Admin: 12/07/19 17:00 Dose: 0.5 mg Documented by: ABDIRIZAK Sodium Chloride (Normal Saline 0.9%) 1,000 mls @ 150 mls/hr IV CONT LACIE Last Infusion: 12/07/19 10:44 Dose: 0 mls/hr Documented by: Infusion: 12/07/19 09:00 Dose: 400 mls/hr Documented by: Admin: 12/07/19 06:46 Dose: 150 mls/hr Documented by: JOE Piperacillin/Tazobactam/Dextrose (Zosyn) 4.5 gm in 100 mls @ 200 mls/hr IV NOW ONE Stop: 12/07/19 08:10 Last Infusion: 12/07/19 09:25 Dose: 0 mls/hr Documented by: Infusion: 12/07/19 09:05 Dose: 200 mls/hr Documented by: Infusion: 12/07/19 08:03 Dose: 0 mls/hr Documented by: Admin: 12/07/19 08:02 Dose: 200 mls/hr Documented by: TONYA Vancomycin HCl (Vancomycin) 1,000 mg in 200 mls @ 200 mls/hr IV NOW ONE Stop: 12/07/19 08:39 Last Infusion: 12/07/19 10:45 Dose: 0 mls/hr Documented by: Admin: 12/07/19 09:25 Dose: 200 mls/hr Documented by: DANIELITO Sodium Chloride (Normal Saline 0.9%) 1,000 mls @ 2,000 mls/hr IV BOLUS ONE Stop: 12/07/19 08:20 Last Infusion: 12/07/19 09:04 Dose: 0 mls/hr Documented by: Admin: 12/07/19 08:10 Dose: 1,000 mls/hr Documented by: TONYA Lactated Ringer's (Lactated Ringers) 1,000 mls @ 100 mls/hr IV CONT [facility] Last Infusion: 12/08/19 10:25 Dose: 0 mls/hr Documented by: Admin: 12/08/19 00:16 Dose: 100 mls/hr Documented by: Infusion: 12/07/19 22:53 Dose: 100 mls/hr Documented by: Admin: 12/07/19 12:53 Dose: 100 mls/hr Documented by: LINDA Levothyroxine Sodium (Synthroid) 50 mcg PO 0600 [facility] Last Admin: 12/08/19 06:14 Dose: 50 mcg Documented by: JULIANA Losartan Potassium (Cozaar) 50 mg PO DAILY [facility] Last Admin: 12/08/19 10:24 Dose: Not Given Documented by: LINDA Naloxone HCl (Narcan) 0.2 mg IV Q2MIN PRN PRN Reason: Opiate Reversal Ondansetron HCl (Zofran) 4 mg IV NOW ONE Stop: 12/07/19 06:41 Last Admin: 12/07/19 06:46 Dose: 4 mg Documented by: JOE Ondansetron HCl (Zofran) 4 mg IV NOW ONE Stop: 12/07/19 07:45 Last Admin: 12/07/19 07:59 Dose: 4 mg Documented by: TONYA Ondansetron HCl (Zofran) 4 mg IV Q8HR PRN PRN Reason: Nausea And Vomiting Ondansetron HCl (Zofran) 4 mg IV Q4HR PRN PRN Reason: Nausea And Vomiting Last Admin: 12/07/19 21:13 Dose: 4 mg Documented by: Admin: 12/07/19 16:59 Dose: 4 mg Documented by: ABDIRIZAK Triamterene/HCTZ (Maxide 37.5/25) 1 tab PO DAILY [facility] Last Admin: 12/08/19 10:24 Dose: Not Given Documented by: Admin: 12/07/19 15:24 Dose: Not Given Documented by: LINDA Vital Signs Vital signs: Vital Signs - 8 hr 12/07/19 06:33 12/07/19 07:38 12/07/19 09:00 Temperature 97 F L Pulse Rate 119 H 92 H 93 H Respiratory Rate 18 18 18 Blood Pressure 147/85 H Blood Pressure [Right Arm] 122/62 143/88 H Pulse Oximetry 100 95 99 12/07/19 09:43 Temperature Pulse Rate 93 H Respiratory Rate 19 Blood Pressure Blood Pressure [Right Arm] 131/78 Pulse Oximetry 99 <Tee Ulrich MD - Last Filed: 12/08/19 20:48> Course Course Narrative: 0753: TRANSFER OF CARE AT CHANGE OF SHIFT:1 report was provided by Dr. Odmo. The patient develops severe abdominal pain at 10:00 p.m. last night associated with nausea vomiting and diarrhea. She has a history of an umbilical hernia and lap band surgery. She has had no other abdominal surgeries. She just finished a 10 day course of prednisone for severe asthma. The patient's pain and discomfort is recurring so she will be administered 1 mg of Dilaudid IV. Her laboratory tests reveal a white blood count of 14.7, hemoglobin 14.9, neutrophil count 89.5%, absolute neutrophil count 13,200, GFR greater than 60 lactate 2.2. Lipase 48. The patient was tachycardic on arrival at 119. She is being treated as though she is septic. Two sets of blood cultures have been ordered on the patient. Her actual weight is 114.75 kg. Her height is reported to be 5 ft 1 in. Using the [employer] equation her ideal body weight is calculated to be 105 lb or 47.7 kg. At 30 cc/kilogram her fluid resuscitation for sepsis should be at least 1.43 L. The patient will be administered 2 L as a bolus. She will then be placed on a continuous infusion of 150 cc/hour. She will be administered 4.5 g of Zosyn and 1 g of vancomycin. Her CT of the abdomen remains pending as we try and identify the source of infection from her abdominal complaints. At the time that I am re-evaluating the patient her heart rate is 90 blood pressure is 122/62. She is much more comfortable. She is awake alert and oriented. LUNGS: Breath sounds are clear and symmetrical without wheezing or rhonchi. HEART: Regular rhythm and rate without tachycardia or murmur. Heart tones are distant heart rate is 90. ABDOMEN: Abdomen is distended bowel sounds present but decreased. No palpable organomegaly. She is tender to palpation with mild guarding in the midline central supraumbilical region without palpable mass or organomegaly. The rest of her abdomen is diffusely tender without guarding rebound or rigidity. The patient has an umbilical hernia/weakness but no palpable incarceration or tenderness. The patient denies a history of kidney failure congestive heart failure. 0851: The patient just returned from CT scan. The results remain pending to determine whether not the patient needs to be admitted to medicine or has a surgical abdomen and admitted to General surgery. 0946: The patient's CT scan does not reveal any acute intra-abdominal pathology suggestive of a cause for sepsis. There is no bowel obstruction, enteritis or acute diverticulitis noted at this time. The chest x-ray reveals no acute infiltrate or pneumonia. The patient's primary care physician will be called to admit the patient and treat the patient as a sepsis of unknown etiology until the blood cultures return. 0959 the patient was informed that her CT scan did not show any acute pathology causing her to have the abdominal pain and discomfort. She does have a lap band present. She does have a fat containing umbilical hernia. There is no pneumonia on chest x-ray. Her pain may be secondary to the fat containing umbilical hernia. Dr. Rubio is her primary care physician. Will call the physician who admits for Dr. Rubio. .1042: Discussed with Dr. Morataya. Admit to general floor. Orders Ordered: Discontinued Medications Acetaminophen (Tylenol) 650 mg PO Q6HR PRN PRN Reason: Fever/Mild Pain (1-3) Last Admin: 12/08/19 10:23 Dose: 650 mg Documented by: Admin: 12/07/19 21:17 Dose: 650 mg Documented by: ABDIRIZAK Hydrocodone Bitart/Acetaminophen (Laie 5/325) 2 tab PO Q4HR PRN PRN Reason: Pain, Severe (7-10) Albuterol (Ventolin Hfa) 2 puff INH RTQ4HR PRN PRN Reason: Shortness Of Breath Albuterol (Ventolin Hfa) 2 puff INH RTQ4HR PRN PRN Reason: Shortness Of Breath Beclomethasone Dipropionate (Qvar) 2 puff INH Q4H PRN PRN Reason: Shortness Of Breath Or Wheezing Beclomethasone Dipropionate (Qvar) 2 puff INH RTBID PRN PRN Reason: Shortness Of Breath Or Wheezing Heparin Sodium (Porcine) (Heparin) 5,000 unit SUBCUT BID LACIE Last Admin: 12/08/19 10:24 Dose: Not Given Documented by: Admin: 12/07/19 20:32 Dose: Not Given Documented by: ABDIRIZAK Hydromorphone HCl (Dilaudid) 0.5 mg IV NOW ONE Stop: 12/07/19 06:41 Last Admin: 12/07/19 06:46 Dose: 0.5 mg Documented by: JOE Hydromorphone HCl (Dilaudid) 1 mg IV NOW ONE Stop: 12/07/19 07:44 Last Admin: 12/07/19 07:59 Dose: 1 mg Documented by: TONYA Hydromorphone HCl (Dilaudid) 0.5 mg IV NOW ONE Stop: 12/07/19 09:06 Last Admin: 12/07/19 09:14 Dose: 0.5 mg Documented by: DANIELITO Hydromorphone HCl (Dilaudid) 0.5 mg IV Q6HR PRN PRN Reason: Pain, Moderate (4-6) Last Admin: 12/07/19 12:50 Dose: 0.5 mg Documented by: LINDA Hydromorphone HCl (Dilaudid) 0.5 mg IV Q4HR PRN PRN Reason: Pain, Moderate (4-6) Hydromorphone HCl (Dilaudid) 0.5 mg IV Q4H PRN PRN Reason: Pain, Moderate (4-6) Last Admin: 12/07/19 21:13 Dose: 0.5 mg Documented by: Admin: 12/07/19 17:00 Dose: 0.5 mg Documented by: ABDIRIZAK Sodium Chloride (Normal Saline 0.9%) 1,000 mls @ 150 mls/hr IV CONT LACIE Last Infusion: 12/07/19 10:44 Dose: 0 mls/hr Documented by: Infusion: 12/07/19 09:00 Dose: 400 mls/hr Documented by: Admin: 12/07/19 06:46 Dose: 150 mls/hr Documented by: JOE Piperacillin/Tazobactam/Dextrose (Zosyn) 4.5 gm in 100 mls @ 200 mls/hr IV NOW ONE Stop: 12/07/19 08:10 Last Infusion: 12/07/19 09:25 Dose: 0 mls/hr Documented by: Infusion: 12/07/19 09:05 Dose: 200 mls/hr Documented by: Infusion: 12/07/19 08:03 Dose: 0 mls/hr Documented by: Admin: 12/07/19 08:02 Dose: 200 mls/hr Documented by: TONYA Vancomycin HCl (Vancomycin) 1,000 mg in 200 mls @ 200 mls/hr IV NOW ONE Stop: 12/07/19 08:39 Last Infusion: 12/07/19 10:45 Dose: 0 mls/hr Documented by: Admin: 12/07/19 09:25 Dose: 200 mls/hr Documented by: DANIELITO Sodium Chloride (Normal Saline 0.9%) 1,000 mls @ 2,000 mls/hr IV BOLUS ONE Stop: 12/07/19 08:20 Last Infusion: 12/07/19 09:04 Dose: 0 mls/hr Documented by: Admin: 12/07/19 08:10 Dose: 1,000 mls/hr Documented by: TONYA Lactated Ringer's (Lactated Ringers) 1,000 mls @ 100 mls/hr IV CONT LACIE Last Infusion: 12/08/19 10:25 Dose: 0 mls/hr Documented by: Admin: 12/08/19 00:16 Dose: 100 mls/hr Documented by: Infusion: 12/07/19 22:53 Dose: 100 mls/hr Documented by: Admin: 12/07/19 12:53 Dose: 100 mls/hr Documented by: LINDA Levothyroxine Sodium (Synthroid) 50 mcg PO 0600 [facility] Last Admin: 12/08/19 06:14 Dose: 50 mcg Documented by: JULIANA Losartan Potassium (Cozaar) 50 mg PO DAILY [facility] Last Admin: 12/08/19 10:24 Dose: Not Given Documented by: LINDA Naloxone HCl (Narcan) 0.2 mg IV Q2MIN PRN PRN Reason: Opiate Reversal Ondansetron HCl (Zofran) 4 mg IV NOW ONE Stop: 12/07/19 06:41 Last Admin: 12/07/19 06:46 Dose: 4 mg Documented by: JOE Ondansetron HCl (Zofran) 4 mg IV NOW ONE Stop: 12/07/19 07:45 Last Admin: 12/07/19 07:59 Dose: 4 mg Documented by: TONYA Ondansetron HCl (Zofran) 4 mg IV Q8HR PRN PRN Reason: Nausea And Vomiting Ondansetron HCl (Zofran) 4 mg IV Q4HR PRN PRN Reason: Nausea And Vomiting Last Admin: 12/07/19 21:13 Dose: 4 mg Documented by: Admin: 12/07/19 16:59 Dose: 4 mg Documented by: ABDIRIZAK Triamterene/HCTZ (Maxide 37.5/25) 1 tab PO DAILY [facility] Last Admin: 12/08/19 10:24 Dose: Not Given Documented by: Admin: 12/07/19 15:24 Dose: Not Given Documented by: LINDA Vital Signs Vital signs: Vital Signs - 8 hr 12/07/19 06:33 12/07/19 07:38 12/07/19 09:00 Temperature 97 F L Pulse Rate 119 H 92 H 93 H Respiratory Rate 18 18 18 Blood Pressure 147/85 H Blood Pressure [Right Arm] 122/62 143/88 H Pulse Oximetry 100 95 99 12/07/19 09:43 Temperature Pulse Rate 93 H Respiratory Rate 19 Blood Pressure Blood Pressure [Right Arm] 131/78 Pulse Oximetry 99 MDM - Abdominal Pain <Yfn Odom DO - Last Filed: 12/08/19 06:06> Lab Data Result diagrams: 12/08/19 04:55 12/08/19 04:55 Labs: Lab Results 12/07/19 12/07/19 12/07/19 Range/Units 06:50 06:50 06:50 WBC 14.7 H (4.5-11.0) X10^3/uL RBC 5.29 H (4.0-5.2) X10^6/uL Hgb 14.9 (12.0-16.0) g/dL Hct 44.8 (36-46) % MCV 84.7 (80-100) fL MCH 28.2 (26-34) PG MCHC 33.2 (30-36) % RDW 13.7 (11.6-14.8) % Plt Count 326 (150-400) X10^3/uL Neut % (Auto) 89.5 H (50-75) % Lymph % (Auto) 3.9 L (25-40) % [place] % (Auto) 6.0 (3-14) % Eos % (Auto) 0.3 L (2-4) % Baso % (Auto) 0.3 (0-2) % Neut # (Auto) 61141 H (3260-2371) /uL Lymph # (Auto) 600 L (8156-6180) /uL [place] # (Auto) 900 (0-900) /uL Eos # (Auto) 0 (0-450) /uL Baso # (Auto) 0 (0-100) /uL Sodium 138 (137-145) mmol/L Potassium 3.9 (3.4-5.1) mmol/L Chloride 100 (98-107) mmol/L Carbon Dioxide 28 (22-32) mmol/L BUN 18 H (7-17) mg/dL Creatinine 0.70 (0.52-1.04) mg/dL Estimated GFR > 60.0 (>60) mL/min BUN/Creatinine Ratio 25.7 H (6-22) Glucose 133 H (70-100) mg/dL Lactate 2.2 H (0.7-2.1) mmol/L Calcium 8.8 (8.4-10.2) mg/dL Total Bilirubin 0.4 (0.2-1.3) mg/dL AST 28 (14-36) IU/L ALT 26 (<35) IU/L Alkaline Phosphatase 103 (38-126) U/L Total Protein 7.4 (6.3-8.2) g/dL Albumin 4.0 (3.5-5.0) g/dL Globulin 3.4 (1.7-4.1) g/dL Albumin/Globulin Ratio 1.2 (1.0-2.8) Lipase 48 (23-300) U/L Urine RBC (0-5/HPF) Urine WBC (0-5/HPF) Urine Bacteria (None) Ur Culture Indicated? Micro UA Comment 12/07/19 12/07/19 Range/Units 09:14 10:25 WBC (4.5-11.0) X10^3/uL RBC (4.0-5.2) X10^6/uL Hgb (12.0-16.0) g/dL Hct (36-46) % MCV (80-100) fL MCH (26-34) PG MCHC (30-36) % RDW (11.6-14.8) % Plt Count (150-400) X10^3/uL Neut % (Auto) (50-75) % Lymph % (Auto) (25-40) % [place] % (Auto) (3-14) % Eos % (Auto) (2-4) % Baso % (Auto) (0-2) % Neut # (Auto) (7680-1929) /uL Lymph # (Auto) (0142-9352) /uL [place] # (Auto) (0-900) /uL Eos # (Auto) (0-450) /uL Baso # (Auto) (0-100) /uL Sodium (137-145) mmol/L Potassium (3.4-5.1) mmol/L Chloride (98-107) mmol/L Carbon Dioxide (22-32) mmol/L BUN (7-17) mg/dL Creatinine (0.52-1.04) mg/dL Estimated GFR (>60) mL/min BUN/Creatinine Ratio (6-22) Glucose (70-100) mg/dL Lactate 1.4 (0.7-2.1) mmol/L Calcium (8.4-10.2) mg/dL Total Bilirubin (0.2-1.3) mg/dL AST (14-36) IU/L ALT (<35) IU/L Alkaline Phosphatase (38-126) U/L Total Protein (6.3-8.2) g/dL Albumin (3.5-5.0) g/dL Globulin (1.7-4.1) g/dL Albumin/Globulin Ratio (1.0-2.8) Lipase (23-300) U/L Urine RBC None seen (0-5/HPF) Urine WBC None seen (0-5/HPF) Urine Bacteria None seen (None) Ur Culture Indicated? Cult not indicated Micro UA Comment Microscopic normal Point of care testing: Urine Dip Bedside Urine Glucose Negative Bedside Urine Bilirubin - Negative Bedside Urine Ketone - Negative Urine Specific [place] 1.005 Bedside Urine Occult Blood - Negative Bedside Urine pH 7.0 Bedside Urine Protein - Negative Bedside Urine Urobilinogen +/- 1mg Bedside Urine Nitrite - Negative Bedside Urine Leukocytes - Negative Esterase <Tee Ulrich MD - Last Filed: 12/08/19 20:48> Lab Data Labs: Lab Results 12/07/19 12/07/19 12/07/19 Range/Units 06:50 06:50 06:50 WBC 14.7 H (4.5-11.0) X10^3/uL RBC 5.29 H (4.0-5.2) X10^6/uL Hgb 14.9 (12.0-16.0) g/dL Hct 44.8 (36-46) % MCV 84.7 (80-100) fL MCH 28.2 (26-34) PG MCHC 33.2 (30-36) % RDW 13.7 (11.6-14.8) % Plt Count 326 (150-400) X10^3/uL Neut % (Auto) 89.5 H (50-75) % Lymph % (Auto) 3.9 L (25-40) % [place] % (Auto) 6.0 (3-14) % Eos % (Auto) 0.3 L (2-4) % Baso % (Auto) 0.3 (0-2) % Neut # (Auto) 11688 H (6490-4748) /uL Lymph # (Auto) 600 L (6216-4530) /uL [place] # (Auto) 900 (0-900) /uL Eos # (Auto) 0 (0-450) /uL Baso # (Auto) 0 (0-100) /uL Sodium 138 (137-145) mmol/L Potassium 3.9 (3.4-5.1) mmol/L Chloride 100 (98-107) mmol/L Carbon Dioxide 28 (22-32) mmol/L BUN 18 H (7-17) mg/dL Creatinine 0.70 (0.52-1.04) mg/dL Estimated GFR > 60.0 (>60) mL/min BUN/Creatinine Ratio 25.7 H (6-22) Glucose 133 H (70-100) mg/dL Lactate 2.2 H (0.7-2.1) mmol/L Calcium 8.8 (8.4-10.2) mg/dL Total Bilirubin 0.4 (0.2-1.3) mg/dL AST 28 (14-36) IU/L ALT 26 (<35) IU/L Alkaline Phosphatase 103 (38-126) U/L Total Protein 7.4 (6.3-8.2) g/dL Albumin 4.0 (3.5-5.0) g/dL Globulin 3.4 (1.7-4.1) g/dL Albumin/Globulin Ratio 1.2 (1.0-2.8) Lipase 48 (23-300) U/L Urine RBC (0-5/HPF) Urine WBC (0-5/HPF) Urine Bacteria (None) Ur Culture Indicated? Micro UA Comment 12/07/19 12/07/19 Range/Units 09:14 10:25 WBC (4.5-11.0) X10^3/uL RBC (4.0-5.2) X10^6/uL Hgb (12.0-16.0) g/dL Hct (36-46) % MCV (80-100) fL MCH (26-34) PG MCHC (30-36) % RDW (11.6-14.8) % Plt Count (150-400) X10^3/uL Neut % (Auto) (50-75) % Lymph % (Auto) (25-40) % [place] % (Auto) (3-14) % Eos % (Auto) (2-4) % Baso % (Auto) (0-2) % Neut # (Auto) (6846-7714) /uL Lymph # (Auto) (6561-6677) /uL [place] # (Auto) (0-900) /uL Eos # (Auto) (0-450) /uL Baso # (Auto) (0-100) /uL Sodium (137-145) mmol/L Potassium (3.4-5.1) mmol/L Chloride (98-107) mmol/L Carbon Dioxide (22-32) mmol/L BUN (7-17) mg/dL Creatinine (0.52-1.04) mg/dL Estimated GFR (>60) mL/min BUN/Creatinine Ratio (6-22) Glucose (70-100) mg/dL Lactate 1.4 (0.7-2.1) mmol/L Calcium (8.4-10.2) mg/dL Total Bilirubin (0.2-1.3) mg/dL AST (14-36) IU/L ALT (<35) IU/L Alkaline Phosphatase (38-126) U/L Total Protein (6.3-8.2) g/dL Albumin (3.5-5.0) g/dL Globulin (1.7-4.1) g/dL Albumin/Globulin Ratio (1.0-2.8) Lipase (23-300) U/L Urine RBC None seen (0-5/HPF) Urine WBC None seen (0-5/HPF) Urine Bacteria None seen (None) Ur Culture Indicated? Cult not indicated Micro UA Comment Microscopic normal Point of care testing: Urine Dip Bedside Urine Glucose Negative Bedside Urine Bilirubin - Negative Bedside Urine Ketone - Negative Urine Specific [place] 1.005 Bedside Urine Occult Blood - Negative Bedside Urine pH 7.0 Bedside Urine Protein - Negative Bedside Urine Urobilinogen +/- 1mg Bedside Urine Nitrite - Negative Bedside Urine Leukocytes - Negative Esterase Discharge Plan Departure Patient Disposition: Admitted As Inpatient Clinical Impression: Abdominal pain Qualifiers: Abdominal location: periumbilical Qualified Code(s): R10.33 - Periumbilical pain Hernia, umbilical Qualifiers: Obstruction and gangrene presence: without obstruction or gangrene Qualified Code(s): K42.9 - Umbilical hernia without obstruction or gangrene Sepsis Qualifiers: Sepsis type: sepsis due to unspecified organism Sepsis acute organ dysfunction status: unspecified Qualified Code(s): A41.9 - Sepsis, unspecified organism Discharge Date/Time: 12/07/19 11:21 Instructions: DI for Norovirus Infection Referrals: Erica White MD [Primary Care Provider] - Admit Date/Time: 12/07/19 10:56 Admit Provider: Chuy Morataya
--- NOTE | 2019-12-07 06:41 | DI.RAD.S_ITS ---
PROCEDURE: XR ACUTE ABDOMEN SERIES INDICATIONS: Abdominal pain, Nausea , vomiting, diarrhea TECHNIQUE: One view chest and two views of the abdomen were acquired. COMPARISON: [facility], , ABDOMEN LIMITED, 01/30/2018, 7:56. [facility], , ABDOMEN ACUTE SERIES, 06/03/2014, 12:37. FINDINGS: Surgical changes and devices: A lap band can be seen. Chest: An incomplete inspiratory result is noted, causing a crowded appearance to the lung markings. No focal infiltrates are seen. No pneumothorax or significant pleural effusions are seen. Mild interstitial prominence is seen. Heart size is normal. No pleural effusions. No pneumoperitoneum. Abdomen: Bowel gas pattern is normal. Upper abdominal calcifications are seen. Visualized solid organ contours appear normal. Bones: No suspicious bony lesions. Age-appropriate bony degenerative changes are seen. IMPRESSION: A nonobstructive bowel gas pattern is seen. As clinically appropriate, please consider a repeat plain film study or a dedicated CT of the abdomen and pelvis, if the patient's symptoms persist or worsen. Interstitial prominence is seen throughout. The interstitial prominence is nonspecific, yet may be related to pulmonary edema. Differential diagnosis includes artifact from an incomplete inspiratory result, however. Lap band postoperative change. Upper abdominal calcification can be seen. Chronic pancreatitis is suspected. The scheduled CT examination is anticipated to provide additional diagnostic information. Dictated by: Ari Wray M.D. on 12/07/2019 at 7:02 Approved by: Ari Wray M.D. on 12/07/2019 at 7:05
[2019-12-07] MEDS: HYDROMORPHONE 0.5 MG INJ IV ×4 (06:46→21:13)
[2019-12-07] MEDS: SODIUM CHLORIDE 0.9% 1,000 ML 150 ML IV (06:46)
[2019-12-07] MEDS: ONDANSETRON 4 MG/2 ML INJ IV ×4 (06:46→21:13)
[2019-12-07 06:56] LABS: Add Manual Diff / Slide Review NO; Basophils Absolute Auto 0 /uL (0-100); Basophils Percent Auto 0.3 % (0-2); Eosinophils Absolute Auto 0 /uL (0-450); Eosinophils Percent Auto 0.3 % (2-4); Hematocrit 44.8 % (36-46); Hemoglobin 14.9 g/dL (12.0-16.0); Lymphocytes Absolute Auto 600 /uL (1100-4500); Lymphocytes Percent Auto 3.9 % (25-40); Mean Corpuscular HGB Conc 33.2 % (30-36); Mean Corpuscular Hemoglobin 28.2 PG (26-34); Mean Corpuscular Volume 84.7 fL (80-100); Monocytes Absolute Auto 900 /uL (0-900); Neutrophils Absolute Auto 13200 /uL (1500-7000); Neutrophils Percent Auto 89.5 % (50-75); Platelet Count 326 X10^3/uL (150-400); Red Blood Cell Count 5.29 X10^6/uL (4.0-5.2); Red Cell Distribution Width 13.7 % (11.6-14.8); White Blood Cell Count 14.7 X10^3/uL (4.5-11.0)
[2019-12-07 07:06] LABS: Alanine Aminotransferase 26 IU/L (<35); Albumin Globulin Ratio 1.2 (1.0-2.8); Alkaline Phosphatase 103 U/L (38-126); Aspartate Aminotransferase 28 IU/L (14-36); BUN Creatinine Ratio 25.7 (6-22); Bilirubin Total 0.4 mg/dL (0.2-1.3); Blood Urea Nitrogen 18 mg/dL (7-17); Calcium 8.8 mg/dL (8.4-10.2); Carbon Dioxide 28 mmol/L (22-32); Chloride 100 mmol/L (98-107); Estimated Glomerular Filt Rate > 60.0 mL/min (>60); Globulin 3.4 g/dL (1.7-4.1); Glucose 133 mg/dL (70-100); HEMOLYSIS < 15 (0-50); Lactate (Lactic Acid) 2.2 mmol/L (0.7-2.1); Lipase 48 U/L (23-300); Potassium 3.9 mmol/L (3.4-5.1); Sodium 138 mmol/L (137-145); Total Protein 7.4 g/dL (6.3-8.2)
--- NOTE | 2019-12-07 07:40 | DI.CT.S_ITS ---
PROCEDURE: CT ABDOMEN PELVIS W CON INDICATIONS: severe abdominal pain with sepsis TECHNIQUE: After the administration of intravenous contrast, 5 mm thick sections acquired from the diaphragm to the symphysis. 5 mm coronal and sagittal reformats were acquired. For radiation dose reduction, the following was used: automated exposure control, adjustment of mA and/or kV according to patient size. COMPARISON: [facility], CT, ABDOMEN/PELVIS WITH CONTRAST, 09/17/2010, 11:35. [facility], CR, XR ACUTE ABDOMEN SERIES, 12/07/2019, 6:36. FINDINGS: Image quality: Excellent. ABDOMEN: Lung bases: Lung bases are clear. Heart size is normal. Solid organs: Liver is normal in size and enhancement. Diffuse fatty liver infiltration is noted. Gallbladder wall is not thickened. Biliary system is non dilated. Pancreas enhances normally. No abnormal pancreatic calcification can be seen. Spleen is normal in size and enhancement. Along the distal aspect of the lateral limb of the right adrenal gland, there is a soft tissue nodule seen, as on series 2 image 25 measures 1.5 cm. This is unchanged compared to 2009. No left adrenal nodules. Kidneys demonstrate normal size and enhancement, without hydronephrosis. Within the left kidney, there is a nonobstructing 7 mm stone seen, as on series 2 image 24. Presumed renal cysts or are seen. Peritoneum and bowel: Postoperative changes with a lap band can be seen. Dense foci can be seen within the stomach lumen, which were previously seen on the abdominal plain films. Bowel loops demonstrate normal wall thickness and caliber. No free fluid or air. Incidental note is made of a normal-appearing appendix. Nodes and vessels: No retroperitoneal or mesenteric adenopathy by size criteria. Aorta and inferior vena cava are normal in size. Miscellaneous: A mild periumbilical hernia is seen, containing fat. PELVIS: Genitourinary: Bladder wall thickness is normal. Miscellaneous: No inguinal hernias or adenopathy. Bones: No suspicious bony lesions. No vertebral body compression fractures. Mild levoconvex scoliotic curvature is noted. Degenerative changes are seen, which are most prominent involving the lower lumbar spine. IMPRESSION: A cause of acute abdominal pain and sepsis cannot be seen. No focal areas of infection can be seen. No abscess collection. Dense foci can be seen within the stomach. Please relate with ingestion history. These are not associated with the adjacent pancreas. Incidental note is made of: Lap band surgery Fatty liver infiltration Nonobstructing left kidney stone Stable right adrenal nodule Fat-containing periumbilical hernia Levoconvex scoliotic curvature Lower lumbar spine degenerative change Dictated by: Ari Wray M.D. on 12/07/2019 at 7:50 Approved by: Ari Wray M.D. on 12/07/2019 at 7:57
[2019-12-07] MEDS: HYDROMORPHONE 1 MG INJ IV (07:59)
[2019-12-07] MEDS: PIPERACILLIN-TAZO 4.5 GM/100 ML FROZ.PIGGY IV (08:02)
[2019-12-07] MEDS: SODIUM CHLORIDE 0.9% 1,000 ML 1000 ML IV (08:10)
[2019-12-07 08:52] LABS: Reflexed Lactate in 2 Hours Y
[2019-12-07] MEDS: VANCOMYCIN 1,000 MG/200 ML PIGGYBACK 200 MG IV (09:25)
[2019-12-07 09:41] LABS: Lactate 2HR (Lactic Acid Rflx) 1.4 mmol/L (0.7-2.1)
[2019-12-07 11:04] LABS: Bacteria Urine None Seen; Culture Indicated Urine Cult Not Indicated; RBC Urine None Seen (0-5/HPF); Urine Comments Microscopic Normal; WBC Urine None Seen (0-5/HPF)
--- NOTE | 2019-12-07 12:40 | PM.HP.1 ---
History of Present Illness History of Present Illness Date Patient Seen: 12/07/19 Time Patient Seen: 12:40 Chief complaint: abdominal pain 6 hrs, has hernia, vomiting Narrative: 59-year-old female presented to the emergency department at 6:00 a.m. this morning with abdominal pain nausea and vomiting diarrhea. Patient's symptoms started last evening about 10 or 10 30 initially she thought she may have had food poisoning. She began to have gradual onset of diffuse abdominal pain. She then became nauseated. Patient then had abdominal cramping and vomiting. Then she had multiple episodes of profuse watery diarrhea. She had this intermittently throughout the evening. 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 Sometimes the pain was so severe she said it was 12/10 on the pain scale. She describes it is diffuse nature. During this time she was vomiting and having diarrhea. She did not have any blood in her vomitus blood in her bowel movements. She came in this morning because the pain was still present. She has not eaten out recently. She had not had fevers or chills respiratory distress. Patient has had no problems with previous history of severe abdominal pain nausea vomiting episodes no history of bowel obstruction ulcerative colitis Crohn's disease or irritable bowel syndrome. Patient states she has been feeling well in her normal state of health. She does have a history of gastric bypass surgery. History of lithotripsy she is known to have an umbilical hernia. On my exam the patient states she feels well she has mild abdominal discomfort. She is no longer vomiting she is not complaining of any nausea and she has not had any diarrhea since hospital admission. In the emergency department patient had blood workup done she had a mildly elevated white blood cell count mildly elevated lactic acid other laboratory tests were unremarkable. Patient was slightly tachycardic. She was normal tensive. Patient initially had an abdominal series and that a CT scan. Patient was given pain medication and nausea medication she is feeling fine now. She was placed on the sepsis protocol in the emergency room because of her elevated lactic acid tachycardia and white blood cell count. On my evaluation she does not have a fever she has normal tensive no longer tachycardic afebrile and repeat lactic acid was normal. She is staying she does not really have any abdominal pain just diffuse and mild upper abdominal bloating. Patient History Medical History Benign essential hypertension (Chronic) Essential tremor (Chronic) HTN (hypertension) (Chronic) Hypothyroid (Chronic) Intermittent asthma (Chronic) Kidney stones (Acute) Palpitations (Acute) Paroxysmal SVT (supraventricular tachycardia) (Acute) Seasonal allergies (Chronic) Surgical History Hx of laparoscopic gastric banding (Resolved ~2004) Hx of lithotripsy (Acute) S/P excision of lipoma (Acute 10/11/16) Status post surgery (Resolved 07/23/08) Family & Social History Family History Father Malignant neoplasm of colon, unspecified part of colon Family/Other Tremor of unknown origin Social History: household members spouse,children Safety & Behavioral: Feels Safe in Current Yes Environment Tobacco & Substance use: Smoking Status Never smoker alcohol intake current Substance Use Type does not use Meds Home Medications and Allergies Home Medications Medication Instructions Recorded Confirmed Type cholecalciferol (vitamin D3) PO 06/08/18 12/04/19 History co q enzyme PO 06/08/18 12/04/19 History curica PO 06/08/18 12/04/19 History loratadine PO 06/08/18 12/04/19 History multivitamin PO 06/08/18 12/04/19 History omega 3 PO 06/08/18 12/04/19 History phytonadione (vitamin K1) PO 06/08/18 12/04/19 History potassium PO 06/08/18 12/04/19 History probiotic PO 06/08/18 12/04/19 History magnesium 200 mg tablet 200 mg PO DAILY 11/05/18 12/04/19 History triamterene 37.5 1 cap PO QDAY #90 tab 03/13/19 12/04/19 Rx mg-hydrochlorothiazide 25 mg capsule beclomethasone dipropionate [Qvar] 2 puff IH BIDP #1 inh 05/14/19 12/04/19 Rx albuterol sulfate 90 mcg/actuation 2 puff INHALATION Q4HP PRN #18 gram 05/15/19 12/04/19 Rx aerosol inhaler levothyroxine 50 mcg tablet See Rx Instructions .ROUTE 09/10/19 12/04/19 Rx .COMPLEX #90 tab losartan 50 mg tablet 50 mg PO DAILY #30 tab 11/11/19 12/04/19 Rx prednisone 20 mg tablet 20 mg PO DAILY #5 tab 11/27/19 12/04/19 Rx Allergies Allergy/AdvReac Type Severity Reaction Status Date / Time erythromycin base Allergy Mild Rash Verified 12/04/19 15:53 [ERYTHROMYCIN BASE] Exam Vital Signs (past 8 hours): - 12/07/19 06:33 12/07/19 07:38 12/07/19 09:00 Temperature 97 F L Pulse Rate 119 H 92 H 93 H Respiratory Rate 18 18 18 Blood Pressure 147/85 H Blood Pressure [Right Arm] 122/62 143/88 H Pulse Oximetry 100 95 99 12/07/19 09:43 12/07/19 11:04 Temperature Pulse Rate 93 H 84 Respiratory Rate 19 18 Blood Pressure Blood Pressure [Right Arm] 131/78 Pulse Oximetry 99 99 Oxygen Delivery Method Room Air Narrative Exam Narrative: Gen.: Alert good historian. HEENT: Pupils equal round and reactive or mucosa is moist neck is supple Cardio: Regular rate and rhythm no murmurs appreciated Respiratory: Lungs are clear no wheezes or crackles Abdomen: Soft nontender no appreciable incarcerated umbilical hernia. No rebound no guarding obese Extremities: Full range of motion no appreciable weakness no cyanosis or edema. Neurologic: Grossly intact. Objective Labs Result Diagrams: 12/07/19 06:50 12/07/19 06:50 Labs: Laboratory Results - last 24 hr 12/07/19 12/07/19 12/07/19 06:50 06:50 06:50 WBC 14.7 H RBC 5.29 H Hgb 14.9 Hct 44.8 MCV 84.7 MCH 28.2 MCHC 33.2 RDW 13.7 Plt Count 326 Neut % (Auto) 89.5 H Lymph % (Auto) 3.9 L [place] % (Auto) 6.0 Eos % (Auto) 0.3 L Baso % (Auto) 0.3 Neut # (Auto) 02078 H Lymph # (Auto) 600 L [place] # (Auto) 900 Eos # (Auto) 0 Baso # (Auto) 0 Sodium 138 Potassium 3.9 Chloride 100 Carbon Dioxide 28 BUN 18 H Creatinine 0.70 Estimated GFR > 60.0 BUN/Creatinine Ratio 25.7 H Glucose 133 H Lactate 2.2 H Calcium 8.8 Total Bilirubin 0.4 AST 28 ALT 26 Alkaline Phosphatase 103 Total Protein 7.4 Albumin 4.0 Globulin 3.4 Albumin/Globulin Ratio 1.2 Lipase 48 Urine RBC Urine WBC Urine Bacteria Ur Culture Indicated? Micro UA Comment 12/07/19 12/07/19 09:14 10:25 WBC RBC Hgb Hct MCV MCH MCHC RDW Plt Count Neut % (Auto) Lymph % (Auto) [place] % (Auto) Eos % (Auto) Baso % (Auto) Neut # (Auto) Lymph # (Auto) [place] # (Auto) Eos # (Auto) Baso # (Auto) Sodium Potassium Chloride Carbon Dioxide BUN Creatinine Estimated GFR BUN/Creatinine Ratio Glucose Lactate 1.4 Calcium Total Bilirubin AST ALT Alkaline Phosphatase Total Protein Albumin Globulin Albumin/Globulin Ratio Lipase Urine RBC None seen Urine WBC None seen Urine Bacteria None seen Ur Culture Indicated? Cult not indicated Micro UA Comment Microscopic normal Assessment & Plan Assessment & Plan narrative: Abdominal pain nausea vomiting and diarrhea. Initially treated as sepsis protocol in the emergency room. Patient really does not meet criteria for sepsis although she is uncomfortable and not eating or drinking well. She will be admitted to the hospital. I will hold off on her antibiotics as I do not see any real real acute bacterial infection on physical exam laboratory data or findings. She will be given IV fluids antiemetics and pain medication. Patient does not have a bowel obstruction does not have acute pancreatitis. I do not see a signs of acute cholecystitis on laboratory finding her CT scan. Do not see any appreciable difficulties on the CT scan with her lap band at this point. No signs of acute pyelonephritis on scans or urinalysis. Do not see any signs of lung infection or respiratory infections and she does not present with a clinical history of this. Most logical source of her discomfort and pain is probably gastroenteritis. Will provide IV fluid hydration antiemetics keep her NPO and see how things progress. Will repeat evaluation with white blood cell count testing kidney function testing and lipase in the morning. If pain gradually improves as a suspected will she will probably be discharged from the hospital. If the pain worsens or becomes more problematic we then would have to do further investigations.
[2019-12-07] MEDS: HYDROMORPHONE 1 MG INJ 0.5 MG IV (12:50)
[2019-12-07] MEDS: LACTATED RINGERS 1,000 ML 100 ML IV (12:53)
[2019-12-07] MEDS: ACETAMINOPHEN 325 MG TABLET 650 MG PO (21:17)
[2019-12-07 22:10] LABS: Adenovirus F 40/41 Not Detected (Not Detect); Astrovirus Not Detected (Not Detect); Campylobacter Not Detected (Not Detect); Clostridium difficile toxin AB Not Detected (Not Detect); Cryptosporidium Not Detected (Not Detect); Cyclospora cayetanensis Not Detected (Not Detect); Entamoeba histolytica Not Detected (Not Detect); Enteroaggregative E.coli Not Detected (Not Detect); Enteropathogenic E.coli Not Detected (Not Detect); Enterotoxigenic E.coli It/st Not Detected (Not Detect); Giardia lamblia Not Detected (Not Detect); Norovirus GI/GII Detected (Not Detect); Plesiomonsa shigelloides Not Detected (Not Detect); Rotavirus A Not Detected (Not Detect); Salmonella Not Detected (Not Detect); Sapovirus Not Detected (Not Detect); Shiga-like toxin-prod E.coli Not Detected (Not Detect); Shigella/Enteroinvasive E.coli Not Detected (Not Detect); Vibrio Not Detected (Not Detect); Vibrio cholerae Not Detected (Not Detect); Yersinia enterocolitica Not Detected (Not Detect)
[2019-12-08] MEDS: LACTATED RINGERS 1,000 ML 100 ML IV (00:16)
[2019-12-08 00:33] VITALS: BP 119/69; PULSE 101; RESP 16; TEMP 36.7; O2SAT 94
[2019-12-08 05:09] LABS: Add Manual Diff / Slide Review NO; Basophils Absolute Auto 0 /uL (0-100); Basophils Percent Auto 0.4 % (0-2); Eosinophils Absolute Auto 100 /uL (0-450); Eosinophils Percent Auto 0.9 % (2-4); Hematocrit 37.3 % (36-46); Hemoglobin 12.6 g/dL (12.0-16.0); Lymphocytes Absolute Auto 1200 /uL (1100-4500); Lymphocytes Percent Auto 14.3 % (25-40); Mean Corpuscular HGB Conc 33.8 % (30-36); Mean Corpuscular Hemoglobin 28.9 PG (26-34); Mean Corpuscular Volume 85.5 fL (80-100); Monocytes Absolute Auto 1100 /uL (0-900); Neutrophils Absolute Auto 6000 /uL (1500-7000); Neutrophils Percent Auto 71.4 % (50-75); Platelet Count 232 X10^3/uL (150-400); Red Blood Cell Count 4.37 X10^6/uL (4.0-5.2); Red Cell Distribution Width 13.8 % (11.6-14.8); White Blood Cell Count 8.4 X10^3/uL (4.5-11.0)
[2019-12-08 05:16] LABS: Alanine Aminotransferase 22 IU/L (<35); Albumin 3.2 g/dL (3.5-5.0); Albumin Globulin Ratio 1.1 (1.0-2.8); Alkaline Phosphatase 78 U/L (38-126); Aspartate Aminotransferase 25 IU/L (14-36); BUN Creatinine Ratio 11.4 (6-22); Bilirubin Total 0.3 mg/dL (0.2-1.3); Blood Urea Nitrogen 8 mg/dL (7-17); Calcium 7.9 mg/dL (8.4-10.2); Carbon Dioxide 29 mmol/L (22-32); Chloride 104 mmol/L (98-107); Estimated Glomerular Filt Rate > 60.0 mL/min (>60); Glucose 107 mg/dL (70-100); HEMOLYSIS < 15 (0-50); Potassium 3.6 mmol/L (3.4-5.1); Sodium 137 mmol/L (137-145); Total Protein 6.2 g/dL (6.3-8.2)
[2019-12-08 05:32] LABS: Amylase < 30 U/L (30-110)
[2019-12-08 05:45] VITALS: BP 125/75; PULSE 82; RESP 16; TEMP 36.9; O2SAT 95
[2019-12-08] MEDS: LEVOTHYROXINE 50 MCG TABLET PO (06:14)
--- NOTE | 2019-12-08 06:42 | PC.NURSE ---
NOC NOTE: Pt slept well most of the night. No prn medication given for nausea or pain, pt reporting marked improvement in both. At 0635 pt reports having diarrhea x1 this morning. IVF running as ordered.
--- NOTE | 2019-12-08 08:31 | P.DS_ITS ---
History of Present Illness History of Present Illness Chief complaint: abdominal pain 6 hrs, has hernia, vomiting Narrative: 59-year-old female presented to the emergency department at 6:00 a.m. this morning with abdominal pain nausea and vomiting diarrhea. Patient's symptoms started last evening about 10 or 10 30 initially she thought she may have had food poisoning. She began to have gradual onset of diffuse abdominal pain. She then became nauseated. Patient then had abdominal cramping and vomiting. Then she had multiple episodes of profuse watery diarrhea. She had this intermittently throughout the evening. 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 Sometimes the pain was so severe she said it was 12/10 on the pain scale. She describes it is diffuse nature. During this time she was vomiting and having diarrhea. She did not have any blood in her vomitus blood in her bowel movements. She came in this morning because the pain was still present. She has not eaten out recently. She had not had fevers or chills respiratory distress. Patient has had no problems with previous history of severe abdominal pain nausea vomiting episodes no history of bowel obstruction ulcerative colitis Crohn's disease or irritable bowel syndrome. Patient states she has been feeling well in her normal state of health. She does have a history of gastric bypass surgery. History of lithotripsy she is known to have an umbilical hernia. On my exam the patient states she feels well she has mild abdominal discomfort. She is no longer vomiting she is not complaining of any nausea and she has not had any diarrhea since hospital admission. In the emergency department patient had blood workup done she had a mildly elevated white blood cell count mildly elevated lactic acid other laboratory tests were unremarkable. Patient was slightly tachycardic. She was normal tensive. Patient initially had an abdomin al series and that a CT scan. Patient was given pain medication and nausea medication she is feeling fine now. She was placed on the sepsis protocol in the emergency room because of her elevated lactic acid tachycardia and white blood cell count. On my evaluation she does not have a fever she has normal tensive no longer tachycardic afebrile and repeat lactic acid was normal. She is staying she does not really have any abdominal pain just diffuse and mild upper abdominal bloating. Discharge Providers Provider Date of admission: 12/07/19 10:56 Discharge Date: 12/08/19 Primary care physician: Erica White MD Discharge provider: Chuy Morataya MD Summary Hospital Course Discharge Diagnosis: Gastroenteritis due to norovirus Dehydration Hypertension Hypothyroidism Hospital Course: 59-year-old female who was admitted the hospital with abdominal pain nausea vomiting dehydration. She was treated in the emergency department based on her sepsis protocol because she had a mildly elevated lactate and with tachycardic. There were concern for an intra-abdominal pathology she was she was admitted the hospital for further evaluation. Patient's hospital evaluation included IV fluids. Pain medication antiemetics. Patient's further laboratory testing was unremarkable for infectious etiology her antibiotics were stopped. Her stool testing came back positive for the norovirus. The following 12 hours. Patient's diarrhea improved. Patient's was no longer throwing up. She was tolerating a soft diet and was stable for discharge. Discharge instructions were reviewed with the patient. Patient will be on a clear liquid diet for the next 48 hours. She is not have any significant pain she has a slight headache which she can take Tylenol for. Recommended no Imodium. She does not need anti medics she is not feeling significantly nauseated now. And she will work on hydration at home and she will follow-up w ith her regular doctor here in 7-10 days. Exam Vital Signs (past 8 hours): - 12/08/19 00:33 12/08/19 05:45 Temperature 98.0 F 98.5 F Pulse Rate 101 H 82 Respiratory Rate 16 16 Blood Pressure 119/69 125/75 Pulse Oximetry 94 95 Oxygen Delivery Method Room Air Oxygen Flow Rate 0 Narrative Exam Narrative: Gen.: Alert and oriented x3 no apparent distress. HEENT: NCAT PERRLA tympanic membranes are clear nares are patent oral mucosa is moist no tonsillar hypertrophy neck is supple without lymphadenopathy no thyroid enlargement. Cardio: S1-S2 regular rate and rhythm no murmurs appreciated. Respiratory: Lungs are clear to auscultation no wheezes or crackles normal respiratory effort. Abdomen: Soft nontender no rebound or guarding no liver spleen enlargement no appreciable hernias Extremities: Full range of motion no appreciable weakness no cyanosis or edema. Neurologic: Grossly intact. Objective Labs Result Diagrams: 12/08/19 04:55 12/08/19 04:55 Labs: Laboratory Results - last 24 hr 12/07/19 12/07/19 12/07/19 09:14 10:25 20:44 WBC RBC Hgb Hct MCV MCH MCHC RDW Plt Count Neut % (Auto) Lymph % (Auto) [place] % (Auto) Eos % (Auto) Baso % (Auto) Neut # (Auto) Lymph # (Auto) [place] # (Auto) Eos # (Auto) Baso # (Auto) Sodium Potassium Chloride Carbon Dioxide BUN Creatinine Estimated GFR BUN/Creatinine Ratio Glucose Lactate 1.4 Calcium Total Bilirubin AST ALT Alkaline Phosphatase Total Protein Albumin Globulin Albumin/Globulin Ratio Amylase Urine RBC None seen Urine WBC None seen Urine Bacteria None seen Ur Culture Indicated? Cult not indicated Micro UA Comment Microscopic normal Stl C. cayetanensis PCR Not detected Stool Rotavirus (PCR) Not detected Stool Adenovirus (PCR) Not detected Stool Astrovirus (PCR) Not detected Stool Cryptosporidium PCR Not detected Stl E.coli Shiga Tox PCR Not detected St Sh/Enteroin Ecoli PCR Not detected Stool E coli O157 PCR Not Reportable Stl Enterotoxigenic E PCR Not detected Stool EPEC (PCR) Not detected Stl E. histolytica PCR Not detected Stool Giardia Lamblia PCR Not detected Stool Sapovirus (PCR) Not detected Stl P. shigelloides PCR Not detected St Y.enterocolitica PCR Not detected Stool Vibrio (PCR) Not detected Stl Vibrio cholerae PCR Not detected Stl Enteroaggr Ecoli PCR Not detected Stl Norovirus GI/GII PCR Detected H Campylobacter (PCR) Not detected C. difficile Tox (PCR) Not detected Salmonella (PCR) Not detected 12/08/19 12/08/19 12/08/19 04:55 04:55 04:55 WBC 8.4 RBC 4.37 Hgb 12.6 Hct 37.3 MCV 85.5 MCH 28.9 MCHC 33.8 RDW 13.8 Plt Count 232 Neut % (Auto) 71.4 Lymph % (Auto) 14.3 L [place] % (Auto) 13.0 Eos % (Auto) 0.9 L Baso % (Auto) 0.4 Neut # (Auto) 6000 Lymph # (Auto) 1200 [place] # (Auto) 1100 H Eos # (Auto) 100 Baso # (Auto) 0 Sodium 137 Potassium 3.6 Chloride 104 Carbon Dioxide 29 BUN 8 Creatinine 0.70 Estimated GFR > 60.0 BUN/Creatinine Ratio 11.4 Glucose 107 H Lactate Calcium 7.9 L Total Bilirubin 0.3 AST 25 ALT 22 Alkaline Phosphatase 78 Total Protein 6.2 L Albumin 3.2 L Globulin 3.0 Albumin/Globulin Ratio 1.1 Amylase < 30 L Urine RBC Urine WBC Urine Bacteria Ur Culture Indicated? Micro UA Comment Stl C. cayetanensis PCR Stool Rotavirus (PCR) Stool Adenovirus (PCR) Stool Astrovirus (PCR) Stool Cryptosporidium PCR Stl E.coli Shiga Tox PCR St Sh/Enteroin Ecoli PCR Stool E coli O157 PCR Stl Enterotoxigenic E PCR Stool EPEC (PCR) Stl E. histolytica PCR Stool Giardia Lamblia PCR Stool Sapovirus (PCR) Stl P. shigelloides PCR St Y.enterocolitica PCR Stool Vibrio (PCR) Stl Vibrio cholerae PCR Stl Enteroaggr Ecoli PCR Stl Norovirus GI/GII PCR Campylobacter (PCR) C. difficile Tox (PCR) Salmonella (PCR) Discharge Plan Discharge Plan Patient Disposition: Home Discharge orders & Medications Prescriptions: Continued triamterene-hydrochlorothiazid [Dyazide] 37.5-25 mg capsule 1 cap PO QDAY Qty: 90 RF: 3 levothyroxine 50 mcg tablet See Rx Instructions .ROUTE .COMPLEX Qty: 90 RF: 3 losartan 50 mg tablet 50 mg PO DAILY Qty: 30 RF: 3 magnesium 200 mg tablet 200 mg PO DAILY RF: 0 cholecalciferol (vitamin D3) PO RF: 0 phytonadione (vitamin K1) PO RF: 0 multivitamin PO RF: 0 curica PO RF: 0 omega 3 PO RF: 0 probiotic PO RF: 0 potassium PO RF: 0 co q enzyme PO RF: 0 albuterol sulfate [Ventolin HFA] 90 mcg/actuation HFA aerosol inhaler 2 puff inhalation Q4HR RF: 0 Qvar 40 mcg/actuation aerosol 2 puff IH BID RF: 0 Follow up/Referrals: Erica White MD [Primary Care Provider] - Visit Report/Discharge Packet Visit Report Forms: Patient Portal/API, Stroke Signs & Symptoms Discharge Data Primary Care Provider: Erica White Quality VTE Deep Vein Thrombosis/Pulmonary Embolism Present on Admission: No
[2019-12-08] MEDS: ACETAMINOPHEN 325 MG TABLET 650 MG PO (10:23)
--- NOTE | 2019-12-08 12:24 | PC.NURSE ---
Discharge Pt states pain in abd is controlled. Did c/o EVANS, medicated with tylenol and states this helped her pain. Up independently in room. States she is still having diarrhea however nausea resolved. d/c instructions provided to pt and her . Aware of f/u apt with Dr White in 7-10 days and to contact her with any additional questions or concerns. Pt took all belongings with her. Left in w/c with RN escort to car with .
--- NOTE | 2019-12-08 13:41 | CM.DANOTE ---
Patient is a 59 year old female who was admitted on 12/07/19 for Abd Pain, N/V. Pt has [employer] for insurance and her PCP is Dr. Erica White. EMR was reviewed. Per MD, pt seems much improved as she is denying current N/V, providing pain control and fluids, currently NPO and waiting for white count. RN able to get stool sample and pt was able to be diagnosed with Norovirus. Per MD, pt now medically stable to d/c home today. SW met bedside with pt and explained role and pt confirms that she lives at home in [place] with her spouse and older children and is Independent with ADL's at baseline. Pt works and drives and denies any hx of symptoms like this before. Pt denies any hx of HH or SNF and denies any formal DPOA but her spouse informally. Pt confirms that her spouse will be bedside around lunch time and can provide transport home and is available for assist if needed and no concerns or d/c needs at this time. Plan: Patient to d/c home today via spouse POV and no SW needs at this time. GORAN Bahena Discharge Planning/Care Management CM Discharge Assessment Start: 12/08/19 13:39 Freq: Status: Active Protocol: Document 12/08/19 13:40 BF (Rec: 12/08/19 13:41 BF [id number]) Discharge Planning Assessment Assigned Motor Electrician GORAN Sumner DPOA/Assigned Designee Name Spouse David Advance Directives? No Advance Directives on File No History Provided By Patient,Medical Record Has Patient been admitted in last 30 No days? Prior Living Arrangements House Household Members spouse,children Type of transporation used prior to Drives own vehicle admit Independent with ADL's Yes Is patient alert and oriented? Yes Caregiver for Another Yes: older children at home Comment home Barriers to Discharge No Discharge Plan Home Transportation Arrangement Spouse will be bedside around lunchtime and can provide transport Referrals Initiated None needed Review Status In Process Please Provide Date Initial DC 12/08/19 Assessment Was Performed Next Review Type Continued Stay Review
== END 2019-12-08 11:45 | disposition home or self-care (01) ==
LOC: ED 10:44 → AC 12:32
PROVIDERS: Emergency Medicine; Admitting Provider Family Medicine; Emergency Provider Emergency Medicine; Family Provider Family Medicine; PCP Family Medicine; Referring Provider Emergency Medicine; Visit Provider Family Medicine
DX: A08.11 Acute gastroenteropathy due to Norwalk agent (principal); R10.9 Unspecified abdominal pain; R11.2 Nausea with vomiting, unspecified; R19.7 Diarrhea, unspecified; E86.0 Dehydration; E03.9 Hypothyroidism, unspecified; I10 Essential (primary) hypertension
CPT/HCPCS: 36415; 74022; 74177; 80053; 81003; 81015; 82150; 83605; 83690; 85025; 87040; 87086; 87507; 96361; 96365; 96367; 96375; 96376; 99284; G0378; J1170; J2405; J2543; Q9967

== ENCOUNTER → 2019-12-11 16:27 | Outpatient (CLI) | payer BC, SELFPAY ==
[2019-12-07 14:53] VITALS: BMI 49.4
[2019-12-11 16:42] LABS: Bacteria Urine None Seen; RBC Urine None Seen (0-5/HPF); WBC Urine None Seen (0-5/HPF)
[2019-12-11 17:58] LABS: Appearance Urine UA CLEAR; Bilirubin Urine UA NEGATIVE (NEGATIVE); Color Urine UA YELLOW; Glucose Urine UA NEGATIVE (Negative); Ketones Urine UA NEGATIVE (NEGATIVE); Leukocyte Esterase Urine UA NEGATIVE (NEGATIVE); Nitrite Urine UA NEGATIVE (Negative); Occult Blood Urine UA NEGATIVE (Negative); Protein Urine UA NEGATIVE (Negative)
[2019-12-11 19:12] LABS: Culture Indicated Urine Cult Not Indicated; Urine Comments Microscopic Normal
== END ==
PROVIDERS: Family Provider Family Medicine; PCP Family Medicine; Referring Provider Family Medicine; Visit Provider Family Medicine
DX: R30.0 Dysuria (principal)
CPT/HCPCS: 81001

== ENCOUNTER → 2019-12-13 15:01 | Outpatient (CLI) | payer BC, SELFPAY ==
[2019-12-07 14:53] VITALS: BMI 49.4
[2019-12-13 15:15] LABS: Bacteria Urine None Seen; RBC Urine None Seen (0-5/HPF)
[2019-12-13 15:40] LABS: Appearance Urine UA CLEAR
[2019-12-13 16:24] LABS: Color Urine UA ORANGE; Squamous Epithelial Cell Urine 0-1 /HPF (0-5/HPF); WBC Urine 0-1/HPF (0-5/HPF)
[2019-12-13 17:01] LABS: Culture Indicated Urine Specimen Cultured
== END ==
PROVIDERS: Family Provider Family Medicine; PCP Family Medicine; Referring Provider Family Medicine; Visit Provider Family Medicine
DX: R30.0 Dysuria (principal)
CPT/HCPCS: 81001; 87086

== ENCOUNTER → 2020-03-03 10:45 | Outpatient (CLI) | payer BC, SELFPAY ==
[2020-03-03 09:35] VITALS: BMI 49.4
== END ==
PROVIDERS: Family Provider Family Medicine; PCP Family Medicine; Visit Provider Family Medicine
DX: R82.998 Other abnormal findings in urine (principal)
CPT/HCPCS: 87086

== ENCOUNTER 2020-04-19 09:47 | Emergency (ER) | payer BC, SELFPAY ==
[2020-03-03 09:35] VITALS: BMI 49.4
[2020-04-19 10:01] VITALS: PULSE 89; RESP 16; TEMP 35.7; O2SAT 99
[2020-04-19 10:04] VITALS: BP 139/86
--- NOTE | 2020-04-19 10:37 | PC.NURSE ---
sudden onset of pain and swelling to left side of neck and face. Reports fullness in neck tender to palpation of neck/face and behind right ear. Some discomfort with swallowing. Denies SOB
--- NOTE | 2020-04-19 10:54 | ED.SKABFB ---
HPI - Skin/Abscess/Foreign Bdy General Chief complaint: Skin/Abscess/Foreign Body Stated complaint: lt side of face swollen/ hasnt gone down Time Seen by Provider: 04/19/20 10:43 Source: patient Mode of arrival: Ambulatory Limitations: no limitations History of Present Illness HPI narrative: Patient is a 60-year-old female who presents with left-sided neck swelling. She says yesterday she was sitting in the car getting ready to order at [facility] [employer] [facility] when all of a sudden she had swelling left side of her neck. She has had no trouble breathing or eating or swallowing. She can feel that it is tight she has not had any fever or infection. She denies any ear or dental pain. She says it does not seem to be getting any worse but certainly is not going away. Location: neck Related Data Home Medications Medication Instructions Recorded Confirmed cholecalciferol (vitamin D3) PO 06/08/18 03/03/20 co q enzyme PO 06/08/18 03/03/20 curica PO 06/08/18 03/03/20 multivitamin PO 06/08/18 03/03/20 omega 3 PO 06/08/18 03/03/20 phytonadione (vitamin K1) PO 06/08/18 03/03/20 potassium PO 06/08/18 03/03/20 probiotic PO 06/08/18 03/03/20 magnesium 200 mg tablet 200 mg PO DAILY 11/05/18 03/03/20 Previous Rx's Medication Instructions Recorded phenazopyridine 200 mg tablet 200 mg PO Q8H #6 tab 12/12/19 albuterol sulfate 90 mcg/actuation 2 puff INHALATION Q4HR #18 gram 03/03/20 aerosol inhaler levothyroxine 50 mcg tablet See Rx Instructions .ROUTE 03/03/20 .COMPLEX #90 tab triamterene 37.5 1 cap PO QDAY #90 tab 03/03/20 mg-hydrochlorothiazide 25 mg capsule beclomethasone dipropionate 40 2 inhalation INHALATION BID #31.8 03/10/20 mcg/actuation HFA breath activated gram aerosol sodium,potassium,mag sulfates 17.5 177 ml PO DAILY #354 ml 04/16/20 gram-3.13 gram-1.6 gram oral soln losartan 50 mg tablet 50 mg PO DAILY #30 tab 04/17/20 prednisone 40 mg PO DAILY #6 tab 04/19/20 Allergies Allergy/AdvReac Type Severity Reaction Status Date / Time erythromycin base Allergy Mild Rash Verified 03/03/20 10:33 [ERYTHROMYCIN BASE] Review of Systems Review of Systems ROS Unobtainable: All systems reviewed & are unremarkable except as noted in HPI and below Constitutional Constitutional: Denies chills, Denies fever(s), Denies headache(s), Denies lethargy and Denies weakness Eyes Eyes: Denies change in vision, Denies eye discharge, Denies irritation and Denies loss of vision ENT Ears, Nose, Mouth, and Throat: Reports as per HPI, Denies change in voice, Denies ear discharge, Denies otalgia, Denies headache(s), Denies hoarseness and Denies mouth pain Cardiovascular Cardiovascular: Denies chest pain, Denies irregular heart rhythm, Denies lightheadedness, Denies palpitations, Denies dyspnea, Denies dyspnea on exertion and Denies orthopnea Respiratory Respiratory: Denies cough, Denies dyspnea, Denies dyspnea on exertion and Denies wheezing Gastrointestinal Gastrointestinal: Denies abdominal pain, Denies change in bowel habits, Denies diarrhea, Denies nausea and Denies vomiting Integumentary/Breasts Skin/Breast: Denies pruritus, Denies erythema, Denies rash and Denies wounds Neurologic Neurologic: Denies headache(s), Denies loss of vision and Denies weakness Endocrine Endocrine: Denies palpitations Allergic/Immunologic Allergic/Immunologic: Denies wheezing Patient History Medical History Benign essential hypertension (Chronic) Essential tremor (Chronic) HTN (hypertension) (Chronic) Hypothyroid (Chronic) Intermittent asthma (Chronic) Kidney stones (Acute) Palpitations (Acute) Paroxysmal SVT (supraventricular tachycardia) (Acute) Seasonal allergies (Chronic) Surgical History Hx of laparoscopic gastric banding (Resolved ~2004) Hx of lithotripsy (Acute) S/P excision of lipoma (Acute 10/11/16) Status post surgery (Resolved 07/23/08) Family History Father Malignant neoplasm of colon, unspecified part of colon Family/Other Tremor of unknown origin Social History marital status: household members: spouse and children occupational status: employed Smoking Status: Never smoker alcohol intake: current substance use type: does not use Smoking Status: Never smoker alcohol intake frequency: a few times a month Substance Use Type: does not use Exam Initial Vital Signs Initial Vital Signs: Vital Signs Temperature 96.3 F L 04/19/20 10:01 Pulse Rate 89 04/19/20 10:01 Respiratory Rate 16 04/19/20 10:01 Pulse Oximetry 99 04/19/20 10:01 GENERAL: Well-appearing, well-nourished and in no acute distress. HEENT: Head atraumatic,EOMI, pupils reactive, face symmetric, moist mucous membranes, mild swelling on the left neck with mild cervical lymphadenopathy she has full range of motion. EARS: Tympanic membranes visualized, no erythema or bulging, no hemotympanum PHARYNX: No erythema, no tonsillar exudate, no cervical lymphadenopathy CARDIOVASCULAR: Regular rate and rhythm without murmurs, rubs or gallops. RESPIRATORY: Breath sounds equal bilaterally, no wheezes rales or rhonchi. ABDOMEN: Soft, nontender. Normoactive bowel sounds all 4 quadrants. No guarding or rebound. EXTREMITIES: Normal range of motion, no clubbing or edema. Neurovascularly intact NEUROLOGICAL: Alert and oriented x4.Normal gait and speech. Cranial nerves II through XII grossly intact. SKIN: Warm, dry, no laceration, no petechiae, no rashes or lesions. Course Orders Ordered: ED Orders 04/19/20 10:55 CT soft tissue neck w con Stat 04/19/20 11:02 Basic Metabolic Panel Stat Complete Blood Count AUTO DIFF Stat Discontinued Medications Methylprednisolone (Solu-Medrol 125 Mg Vial) 125 mg IV NOW ONE Stop: 04/19/20 10:56 Last Admin: 04/19/20 11:38 Dose: 125 mg Documented by: FAISAL Vital Signs Vital signs: Vital Signs - 8 hr 04/19/20 10:01 04/19/20 10:04 04/19/20 12:36 Temperature 96.3 F L Pulse Rate 89 78 Respiratory Rate 16 14 Blood Pressure Blood Pressure [right forearm] 139/86 141/85 H Pulse Oximetry 99 100 04/19/20 12:45 Temperature Pulse Rate 70 Respiratory Rate 16 Blood Pressure 132/68 Blood Pressure [right forearm] Pulse Oximetry 100 MDM - Skin/Abscess/Foreign Bdy Lab Data Attestation: I reviewed the patient's lab results. Result diagrams: 04/19/20 11:02 04/19/20 11:02 Labs: Lab Results 04/19/20 04/19/20 Range/Units 11:02 11:02 WBC 8.7 (4.5-11.0) X10^3/uL RBC 5.05 (4.0-5.2) X10^6/uL Hgb 14.9 (12.0-16.0) g/dL Hct 42.7 (36-46) % MCV 84.5 (80-100) fL MCH 29.5 (26-34) PG MCHC 34.9 (30-36) % RDW 13.7 (11.6-14.8) % Plt Count 288 (150-400) X10^3/uL Neut % (Auto) 66.2 (50-75) % Lymph % (Auto) 22.2 L (25-40) % Sibley % (Auto) 9.2 (3-14) % Eos % (Auto) 1.3 L (2-4) % Baso % (Auto) 1.1 (0-2) % Neut # (Auto) 5800 (0034-3264) /uL Lymph # (Auto) 1900 (2336-6082) /uL Sibley # (Auto) 800 (0-900) /uL Eos # (Auto) 100 (0-450) /uL Baso # (Auto) 100 (0-100) /uL Sodium 138 (137-145) mmol/L Potassium 4.1 (3.4-5.1) mmol/L Chloride 103 (98-107) mmol/L Carbon Dioxide 28 (22-32) mmol/L BUN 15 (7-17) mg/dL Creatinine 0.65 (0.52-1.04) mg/dL Estimated GFR > 60.0 (>60) mL/min BUN/Creatinine Ratio 23.1 H (6-22) Glucose 101 (80-110) mg/dL Calcium 9.5 (8.4-10.2) mg/dL Imaging Data CT soft tissue neck: Radiologist's Impression: PROCEDURE: CT SOFT TISSUE NECK W CON INDICATIONS: swelling left side of neck TECHNIQUE: After the administration of intravenous contrast, 3.0 mm axial sections acquired from the sella to the aortic arch. Additional oblique axial 3.0 mm sections acquired through the pharynx. 3 mm thick coronal and sagittal reformats were generated. For radiation dose reduction, the following was used: automated exposure control. COMPARISON: CT neck with contrast dated 09/23/16. FINDINGS: Image quality: Excellent. Lymph nodes: No enlarged lymph nodes seen throughout the neck. Shotty bilateral cervical lymph nodes are again noted. Vessels: Visualized vasculature appears patent. Neck spaces: The oropharynx, nasopharynx, and pharynx demonstrate no mucosal lesions. The vocal cords, false vocal cords, pyriform sinuses, epiglottis, vallecula, and tongue base all appear normal. Extramucosal spaces appear unremarkable. Glands: The parotid and submandibular glands appear normal. Thyroid gland is unremarkable. Miscellaneous: Visualized brain and orbits appear normal. Lung apices appear clear. Superficial soft tissues appear normal. Bones: No suspicious bony lesions. Cervical spondylitic change centered C5-C6 and C6-C7 with chronic disc height loss and uncovertebral joint osteophytes. There is bilateral bony foraminal narrowing at these levels, greater at C5-C6. Visualized sinuses and mastoids appear unremarkable. IMPRESSION: Cervical spondylosis. Otherwise unremarkable neck CT. No evidence of left neck abscess. Dictated by: Diego Lazo M.D. on 04/19/2020 at 11:0 MDM Narrative Medical decision making narrative: The patient has no airway compromise no sign of infection no fever or leukocytosis. At this time I do not think deep neck infection. He says that Solu-Medrol a has not helped very much. CT is relatively unremarkable. I have discussed with her strict return precautions. She understands when to return including worsening symptoms or any airway issues Discharge Plan Departure Patient Disposition: Home Clinical Impression: Lymphadenitis Discharge Date/Time: 04/19/20 12:45 Instructions: DI for Lymphadenopathy Activity Restrictions/Additional Instructions: *You have been diagnosed with possible lymphadenopathy *What to do: At this time there is no clear cause of the your symptoms. It does not appear to be infectious there is no abscess or significant swelling on her CT scan *Continue to take medications as directed Prednisone 40 mg once a day for 3 days start tomorrow--> SENT TO [facility] [place] *Follow up with your primary care provider in 2-3 days *Return to ER if you should have increased swelling, redness, fever, difficulty swallowing, change in voice or any new, worsening or concerning symptoms Prescriptions: New prednisone 20 mg tablet 40 mg PO DAILY Qty: 6 RF: 0 No Action phenazopyridine [Pyridium] 200 mg tablet 200 mg PO Q8H Qty: 6 RF: 0 albuterol sulfate [Ventolin HFA] 90 mcg/actuation HFA aerosol inhaler 2 puff inhalation Q4HR Qty: 18 RF: 3 levothyroxine 50 mcg tablet See Rx Instructions .ROUTE .COMPLEX Qty: 90 RF: 3 triamterene-hydrochlorothiazid [Dyazide] 37.5-25 mg capsule 1 cap PO QDAY Qty: 90 RF: 3 Qvar RediHaler 40 mcg/actuation HFA aerosol breath activated 2 inhalation INHALATION BID Qty: 31.8 RF: 3 sodium,potassium,mag sulfates 17.5-3.13-1.6 gram recon soln 177 ml PO DAILY Qty: 354 RF: 0 losartan 50 mg tablet 50 mg PO DAILY Qty: 30 RF: 3 magnesium 200 mg tablet 200 mg PO DAILY RF: 0 cholecalciferol (vitamin D3) PO RF: 0 phytonadione (vitamin K1) PO RF: 0 multivitamin PO RF: 0 curica PO RF: 0 omega 3 PO RF: 0 probiotic PO RF: 0 potassium PO RF: 0 co q enzyme PO RF: 0 Referrals: Erica White MD [Primary Care Provider] -
[2020-04-19 11:11] LABS: Add Manual Diff / Slide Review NO; Basophils Absolute Auto 100 /uL (0-100); Basophils Percent Auto 1.1 % (0-2); Eosinophils Absolute Auto 100 /uL (0-450); Eosinophils Percent Auto 1.3 % (2-4); Hematocrit 42.7 % (36-46); Hemoglobin 14.9 g/dL (12.0-16.0); Lymphocytes Absolute Auto 1900 /uL (1100-4500); Lymphocytes Percent Auto 22.2 % (25-40); Mean Corpuscular HGB Conc 34.9 % (30-36); Mean Corpuscular Hemoglobin 29.5 PG (26-34); Mean Corpuscular Volume 84.5 fL (80-100); Monocytes Absolute Auto 800 /uL (0-900); Monocytes Percent Auto 9.2 % (3-14); Neutrophils Absolute Auto 5800 /uL (1500-7000); Neutrophils Percent Auto 66.2 % (50-75); Platelet Count 288 X10^3/uL (150-400); Red Blood Cell Count 5.05 X10^6/uL (4.0-5.2); Red Cell Distribution Width 13.7 % (11.6-14.8); White Blood Cell Count 8.7 X10^3/uL (4.5-11.0)
[2020-04-19 11:21] LABS: BUN Creatinine Ratio 23.1 (6-22); Blood Urea Nitrogen 15 mg/dL (7-17); Calcium 9.5 mg/dL (8.4-10.2); Carbon Dioxide 28 mmol/L (22-32); Chloride 103 mmol/L (98-107); Estimated Glomerular Filt Rate > 60.0 mL/min (>60); Glucose 101 mg/dL (80-110); HEMOLYSIS < 15 (0-50); Potassium 4.1 mmol/L (3.4-5.1); Sodium 138 mmol/L (137-145)
[2020-04-19] MEDS: methylPREDNISolone 125 MG/2 ML VIAL IV (11:38)
[2020-04-19 12:36] VITALS: BP 141/85; PULSE 78; RESP 14; O2SAT 100
[2020-04-19 12:45] VITALS: BP 132/68; PULSE 70; RESP 16; O2SAT 100
== END 2020-04-19 12:45 | disposition home or self-care (01) ==
PROVIDERS: Emergency Provider Emergency Medicine; Family Provider Family Medicine; PCP Family Medicine
DX: I88.9 Nonspecific lymphadenitis, unspecified (principal)
CPT/HCPCS: 36415; 70491; 80048; 85025; 96374; 99284; J2930; Q9967

== ENCOUNTER → 2020-04-21 14:52 | Outpatient (CLI) | payer BC, SELFPAY ==
[2020-03-03 09:35] VITALS: BMI 49.4
[2020-04-22 19:44] LABS: COVID19 Sendout Not Detected (Not Detect)
== END ==
PROVIDERS: Family Provider Family Medicine; PCP Family Medicine; Visit Provider Physician Assistant
DX: Z01.812 Encounter for preprocedural laboratory examination (principal)
CPT/HCPCS: 87635

== ENCOUNTER 2020-04-24 10:37 | Day surgery (SDC) | payer BC, SELFPAY ==
[2020-03-03 09:35] VITALS: BMI 49.4
--- NOTE | 2020-04-24 | PATH_ITS ---
[facility] Accession Number: [id number] . 01 Material submitted: . rectum - RECTAL POLYPS AT 15CM X2 . 02 Diagnosis: Rectum, Polyps at 15 cm x2, Biopsies: Hyperplastic polyps. [facility] 04/27/2020 0948 Local . 02 Electronically signed: . Kassie Nichole MD, Pathologist NPI- [id number] . 01 Gross description: . RECTAL POLYPS AT 15CM X2: Received in formalin are 3 fragment(s) of palmer, soft tissue measuring 0.1 x 0.1 x 0.1 cm to 0.3 x 0.3 x 0.2 cm submitted entirely in 1 cassette(s) /ERI 04/25/2020 0054 Local . 02 Pathologist provided ICD-10: K62.1 . 02 CPT . 395083 Performed at: 01 [facility] [address] [id number] MD Didier Smith MD Phone: [phone] Performed at: 02 [facility] [address] [place], [place] [id number] MD Kassie Nichole MD Phone: [phone]
[2020-04-24 11:04] VITALS: BP 122/87; PULSE 77; RESP 14; TEMP 36.6; O2SAT 95; BMI 48.6
[2020-04-24] MEDS: SODIUM CHLORIDE 0.9% 1,000 ML 200 ML IV (11:25)
--- NOTE | 2020-04-24 11:54 | P.HP_ITS ---
History of Present Illness History of Present Illness Date Patient Seen: 04/24/20 Time Patient Seen: 11:54 Chief complaint: [id number] Narrative: This is 60-year-old woman with history of severe morbid obesity with BMI 49, hypertension, hypothyroidism, asthma, paroxysmal SVT, irregular heartbeat/heart palpitations, history of lap gastric band, arthritis, GERD, constipation, colon polyps, and family history of colon cancer in a primary relative. She is here today for a surveillance colonoscopy. Her last colonoscopy was in 2014. At that time multiple benign polyps were removed. She denies any melena, hematochezia, unexplained weight loss, or unexplained abdominal pain happening since that time. She states that on her prior colonoscopy, it she was not able to remain comfortable or sedated, and she refused to have a repeat colonoscopy without being ?completely out. ROS: Review of systems is positive for heart palpitations, asthma symptoms, arthritis symptoms, heartburn, constipation, chronic UTIs, headaches, Thirteen system review is otherwise negative other than as mentioned below and in HPI. PE: GENERAL: Alert, comfortable, morbidly obese. Appears stated age. Answers questions promptly and appropriately. Vital signs noted. HENT: Normocephalic, atraumatic. Hearing intact. Oral mucosa is pink and moist. EYES: Conjunctiva pink, sclera white, no periorbital swelling. CARDIOVASCULAR: Regular rate. No pedal edema. RESPIRATORY: Non-tachypneic, breathing comfortably on room air. GASTROINTESTINAL: Abdomen soft and non-distended; significantly obese, rounded GENITALURINARY: No flank tenderness. MUSCULOSKELETAL: Equal tone and mass bilaterally. SKIN: Warm, dry, soft, appropriate color for ethnicity. No other lesions, rashes, or wounds. NEURO: Alert and Oriented X 3. No gross sensory deficits, or cognitive issues. PSYCH: Appropriate affect and mood. Patient History Medical History (Updated 04/24/20 @ 11:59 by Sherine Osei MD) Benign essential hypertension (Chronic) Essential tremor (Chronic) HTN (hypertension) (Chronic) Hypothyroid (Chronic) Intermittent asthma (Chronic) Kidney stones (Acute) Palpitations (Acute) Paroxysmal SVT (supraventricular tachycardia) (Acute) Seasonal allergies (Chronic) Surgical History Hx of laparoscopic gastric banding (Resolved ~2004) Hx of lithotripsy (Acute) S/P excision of lipoma (Acute 10/11/16) Status post surgery (Resolved 07/23/08) Family & Social History Family History Father Malignant neoplasm of colon, unspecified part of colon Family/Other Tremor of unknown origin Social History: household members spouse,children Tobacco & Substance use: Smoking Status Never smoker alcohol intake current alcohol intake frequency a few times a month Substance Use Type does not use Meds Home Medications and Allergies Home Medications Medication Instructions Recorded Confirmed Type cholecalciferol (vitamin D3) 10,000 unit PO DAILY 06/08/18 04/24/20 History co q enzyme 100 mg PO DAILY 06/08/18 04/24/20 History curica 1,405 mg PO DAILY 06/08/18 04/24/20 History multivitamin 1 tab PO DAILY 06/08/18 04/24/20 History omega 3 1,000 mg PO DAILY 06/08/18 04/24/20 History phytonadione (vitamin K1) 100 mcg PO DAILY 06/08/18 04/24/20 History potassium 99 mg PO DAILY 06/08/18 04/24/20 History probiotic 1 cap PO DAILY 06/08/18 04/24/20 History magnesium 200 mg tablet 400 mg PO DAILY 11/05/18 04/24/20 History albuterol sulfate 90 mcg/actuation 2 puff INHALATION Q4HR #18 gram 03/03/20 04/24/20 Rx aerosol inhaler triamterene 37.5 1 cap PO QDAY #90 tab 03/03/20 04/24/20 Rx mg-hydrochlorothiazide 25 mg capsule beclomethasone dipropionate 40 2 inhalation INHALATION BID #31.8 03/10/20 0 04/24/20 Rx mcg/actuation HFA breath activated gram aerosol losartan 50 mg tablet 50 mg PO DAILY #30 tab 04/17/20 04/24/20 Rx levothyroxine 25 mcg PO DAILY 04/24/20 04/24/20 History prednisone 20 mg PO DAILY 04/24/20 04/24/20 History Allergies Allergy/AdvReac Type Severity Reaction Status Date / Time erythromycin base Allergy Mild Rash Verified 04/24/20 10:55 [ERYTHROMYCIN BASE] Exam Vital Signs (past 8 hours): - 04/24/20 11:04 Temperature 97.8 F Pulse Rate 77 Respiratory Rate 14 Blood Pressure 122/87 Pulse Oximetry 95 Oxygen Delivery Method Room Air Assessment & Plan Assessment and plan (1) Personal history of colonic polyps: Status: Acute (2) Family history of malignant neoplasm of colon: Status: Inactive (3) Morbid obesity with BMI of 45.0-49.9, adult: Status: Acute Assessment & Plan narrative: This is a 60-year-old woman with severe morbid obesity, it personal history of colon polyps, family history of colon cancer. Risks and benefits of screening colonoscopy and possible polypectomy were discussed with the patient including risk of bleeding, perforation, need for add itional procedures, risks of anesthesia. The patient desires to proceed with the colonoscopy procedure. COVID-19 COVID-19 status: Negative Result date/Date tested (Pos, Neg/Pending): 04/21/20 Time Spent With Patient Time with patient: 25 - 35 minutes Quality VTE Deep Vein Thrombosis/Pulmonary Embolism Present on Admission: No
--- NOTE | 2020-04-24 12:15 | PM.OP.ENDO ---
Operative Date/Time/Diagnoses Date of procedure: 04/24/20 Time of procedure: 12:15 Pre-op diagnosis: personal history of colon polyps Post-op diagnosis: other (Two small rectal polyps) Procedure & Clinicians Study performed: Colonoscopy. Cold forceps polypectomy x2 Indications: 60 yo woman with personal history of colon polyps. Surgeon: Sherine Osei Procedure Notes SCOAP/Timeout: Performed Procedure in detail: The patient was brought to the room and placed in left lateral decubitus position with all bony prominences padded. A time-out was performed and then the patient was given MAC deep sedation by Dr. Hoyos. Once adequately sedated, the procedure was begun. A rectal exam was performed revealing no abnormalities. The colonoscope was then introduced to the rectum and advanced to the cecum in the usual fashion. The cecum was identified by the appendiceal orifice, the mucosal tri-fold, and the ileocecal valve. The scope was then retracted while rotating side to side and examining each mucosal fold. Moderate diverticulosis was found in the sigmoid colon, and 2 small polyps were found in the rectum, which were removed with cold forceps. At the conclusion of the procedure retroflexion was performed and small grade 1-2 internal hemorrhoids without stigmata of bleeding were seen. The scope was then withdrawn from the rectum the procedure was concluded. The patient tolerated the procedure well and was transferred to the PACU in stable condition. Scope withdrawal time: 8 Findings: diverticulosis and polyp (Two rectal polyps) Specimen(s): other (Two rectal polyps for 15 cm) Complications: none Impression: Small benign appearing rectal polyps, moderate diverticulosis in the sigmoid colon
--- NOTE | 2020-04-24 12:29 | SUR.PHASEI ---
Pt gradually awake, xray taken.
[2020-04-24 12:47] VITALS: BP 102/71; PULSE 79; RESP 16; TEMP 36.7; O2SAT 98
[2020-04-24 12:52] VITALS: BP 98/68; PULSE 73; RESP 16
[2020-04-24 12:57] VITALS: BP 107/68; PULSE 73; RESP 12; O2SAT 98
--- NOTE | 2020-04-24 13:44 | SUR.PHASEII ---
1330 Patient ambulated to bathroom without difficulty. Denies nausea or pain. All instructions given to patient and family. Discharged in stable condition.
== END 2020-04-24 13:30 | disposition home or self-care (01) ==
PROVIDERS: PCP Family Medicine; Referring Provider Family Medicine; Visit Provider Surgery
PROC: 0DJD8ZZ Inspection of Lower Intestinal Tract, Via Natural or Artificial Opening Endoscopic (ICD-10-PCS; CPT 45378; principal; 2020-04-24 12:00)
DX: Z12.11 Encounter for screening for malignant neoplasm of colon (principal); Z86.010 Personal history of colon polyps; I10 Essential (primary) hypertension; E66.01 Morbid (severe) obesity due to excess calories; Z68.42 Body mass index [BMI] 45.0-49.9, adult; K21.9 Gastro-esophageal reflux disease without esophagitis; K57.30 Diverticulosis of large intestine without perforation or abscess without bleeding; K62.1 Rectal polyp
CPT/HCPCS: 45380; J2250; J2704

== ENCOUNTER → 2020-06-11 14:38 | Outpatient (CLI) | payer BC, SELFPAY ==
[2020-03-03 09:35] VITALS: BMI 49.4
--- NOTE | 2020-06-11 | DI.MG.S_ITS ---
BILATERAL DIGITAL SCREENING MAMMOGRAM 3D/2D WITH CAD: 06/11/2020 CLINICAL: Routine screening. Comparison is made to exams dated: 06/10/2019 mammogram, 04/23/2018 mammogram, and 03/17/2017 mammogram - [facility]. There are scattered fibroglandular elements in both breasts. Current study was also evaluated with a Computer Aided Detection (CAD) system. There is a focal asymmetry in the left breast at 7 o'clock anterior depth. No other significant masses, calcifications, or other findings are seen in either breast. IMPRESSION: INCOMPLETE: NEEDS ADDITIONAL IMAGING EVALUATION The focal asymmetry in the left breast is indeterminate. Additional views with possible ultrasound are recommended. This exam was interpreted at Station ID: [id number]. NOTE: For mammograms, a report in lay terms will be sent to the patient. Approximately 15% of breast malignancies will not be visualized mammographically. In the management of a palpable breast mass, a negative mammogram must not discourage biopsy of a clinically suspicious lesion. Electronically Signed By: Mile bangura/jose manuel:06/11/2020 16:07:38 letter sent: Additional Imaging Needed ACR BI-RADS Category 0: Incomplete [id number]
== END ==
PROVIDERS: PCP Family Medicine; Referring Provider Family Medicine; Visit Provider Family Medicine
DX: Z12.31 Encounter for screening mammogram for malignant neoplasm of breast (principal)
CPT/HCPCS: 77063; 77067

== ENCOUNTER → 2020-07-17 15:05 | Outpatient (CLI) | payer BC, SELFPAY ==
[2020-03-03 09:35] VITALS: BMI 49.4
--- NOTE | 2020-07-17 15:06 | DI.MG.S_ITS ---
UNILATERAL LEFT DIGITAL DIAGNOSTIC MAMMOGRAM 3D/2D WITH ADDITIONAL VIEWS: 07/17/2020 CLINICAL: Additional evaluation requested from prior study. Comparison is made to exams dated: 06/11/2020 mammogram, 06/10/2019 mammogram, 04/23/2018 mammogram, 03/17/2017 mammogram, and 01/15/2016 mammogram - [facility]. There are scattered fibroglandular elements in left breast. There is a focal asymmetry in the left breast at 7 o'clock in the retroareolar region. This is not seen in additional views. No other significant masses or calcifications are seen in the breast. IMPRESSION: INCOMPLETE: NEEDS ADDITIONAL IMAGING EVALUATION The focal asymmetry in the left breast is not confirmed on additional views. This may represent a dilated duct. A targeted ultrasound is recommended and will immediately follow. This exam was interpreted at Station ID: [id number]. NOTE: For mammograms, a report in lay terms will be sent to the patient. Approximately 15% of breast malignancies will not be visualized mammographically. In the management of a palpable breast mass, a negative mammogram must not discourage biopsy of a clinically suspicious lesion. Electronically Signed By: Elias Cobian M.D. slc/:07/17/2020 15:32:38 ACR BI-RADS Category 0: Incomplete 3340F
--- NOTE | 2020-07-17 15:06 | DI.US.S_ITS ---
LIMITED ULTRASOUND OF LEFT BREAST: 07/17/2020 CLINICAL: Patient returns today to evaluate a focal asymmetry in the left breast. Comparison is made to exams dated: 07/17/2020 mammogram, 06/11/2020 mammogram, and 06/10/2019 mammogram - [facility]. Color flow and real-time ultrasound of the left breast 9 o'clock, and retroareolar regions were performed. Hardwick scale images of the real-time examination were reviewed. There is a benign prominent duct in the left breast at 7 o'clock in the retroareolar region. This correlates with prior mammography findings. Color flow imaging demonstrates that there is no vascularity present. No intraductal mass or debris. Patient denies nipple discharge. No significant abnormalities were seen sonographically in the left breast. IMPRESSION: BENIGN There is no sonographic evidence of malignancy. Prominent retroareolar duct. No intraductal mass or debris. A 1 year screening mammogram is recommended. Exam findings conveyed to the patient. This exam was interpreted at Station ID: [id number]. Electronically Signed By: Elias Cobian M.D. slc/:07/17/2020 16:26:06 letter sent: Normal Exam Ultrasound BI-RADS: 2 Benign
== END ==
PROVIDERS: PCP Family Medicine; Referring Provider Family Medicine; Visit Provider Family Medicine
DX: R92.8 Other abnormal and inconclusive findings on diagnostic imaging of breast (principal); N64.89 Other specified disorders of breast
CPT/HCPCS: 76642; 77065; G0279

== ENCOUNTER → 2020-10-10 15:34 | Outpatient (CLI) | payer BC, SELFPAY ==
[2020-03-03 09:35] VITALS: BMI 49.4
[2020-10-10 16:04] LABS: COVID19 -Nasal RAPID Negative (Negative)
== END ==
PROVIDERS: PCP Family Medicine; Referring Provider Physician Assistant; Visit Provider Physician Assistant
DX: J02.9 Acute pharyngitis, unspecified (principal); R09.81 Nasal congestion; R51.9 Headache, unspecified; Z20.828 Contact with and (suspected) exposure to other viral communicable diseases
CPT/HCPCS: 87635

== ENCOUNTER → 2021-09-15 11:55 | Outpatient (CLI) | payer BC, SELFPAY ==
[2021-09-13 10:46] VITALS: BMI 49.4
--- NOTE | 2021-09-15 11:56 | DI.RAD.S_ITS ---
PROCEDURE: XR KNEE LT 3V INDICATIONS: concern of osteoarthritis or other inflammatory condition TECHNIQUE: 3 views of the knee were acquired. COMPARISON: Prior studies dating back to July 25, 2017. FINDINGS: Bones: No fractures or dislocations. Tricompartmental osteophytosis. No suspicious bony lesions. Moderate narrowing of the lateral patellofemoral articulation. The medial and lateral compartment joint spaces are maintained. Soft tissues: No joint effusion. No suspicious soft tissue calcifications. IMPRESSION: No acute abnormality. Dictated by: Shane Barraza M.D. on 09/15/2021 at 12:52 Approved by: Shane Barraza M.D. on 09/15/2021 at 12:54
--- NOTE | 2021-09-15 11:56 | DI.RAD.S_ITS ---
PROCEDURE: XR KNEE RT 3V INDICATIONS: concern of osteoarthritis or other inflammatory condition TECHNIQUE: 3 views of the knee were acquired. COMPARISON: July 25, 2017. FINDINGS: Bones: No fractures or dislocations. Mild to moderate medial compartment narrowing with vacuum phenomena. Tricompartmental osteophytosis. No suspicious bony lesions. Soft tissues: No joint effusion. No suspicious soft tissue calcifications. IMPRESSION: Osteoarthrosis, most prominent in the medial compartment. Dictated by: Shane Barraza M.D. on 09/15/2021 at 12:49 Approved by: Shane Barraza M.D. on 09/15/2021 at 12:52
== END ==
PROVIDERS: PCP Family Medicine; Referring Provider Family Medicine; Visit Provider Family Medicine
DX: M17.11 Unilateral primary osteoarthritis, right knee (principal); M25.562 Pain in left knee; M25.561 Pain in right knee
CPT/HCPCS: 73562

== ENCOUNTER → 2021-09-21 12:38 | Outpatient (CLI) | payer BC, SELFPAY ==
[2021-09-13 10:46] VITALS: BMI 49.4
[2021-09-21 14:05] LABS: Erythrocyte Sedimentation Rate 8 MM/HR (0-20)
[2021-09-21 15:06] LABS: Alanine Aminotransferase 18 IU/L (<35); Albumin Globulin Ratio 1.4 (1.0-2.8); Alkaline Phosphatase 92 U/L (38-126); Aspartate Aminotransferase 24 IU/L (14-36); BUN Creatinine Ratio 16.4 (6-22); Bilirubin Total 0.5 mg/dL (0.2-1.3); Blood Urea Nitrogen 12 mg/dL (7-17); C-Reactive Protein Quant 1.6 mg/dL (<1.0); Calcium 9.2 mg/dL (8.4-10.2); Carbon Dioxide 29 mmol/L (22-32); Chloride 100 mmol/L (98-107); Cholesterol 178 mg/dL (140-199); Estimated Glomerular Filt Rate > 60.0 mL/min (>60); Globulin 2.8 g/dL (1.7-4.1); Glucose 82 mg/dL (80-110); HDL Cholesterol 50 mg/dL (40-60); HEMOLYSIS < 15 (0-50); LDL Cholesterol Calculated 108 mg/dL (<100); Potassium 4.2 mmol/L (3.4-5.1); Sodium 137 mmol/L (137-145); Total Protein 6.8 g/dL (6.3-8.2); Triglycerides 100 mg/dL (35-150)
[2021-09-21 15:24] LABS: Thyroid Stimulating Hormone 1.03 uIU/mL (0.47-4.68)
[2021-09-21 15:39] LABS: Creatinine Urine Random 27.3 mg/dL
[2021-09-21 15:54] LABS: Microalbumin Urine Random < 0.6 mg/dL (0-1.6)
== END ==
PROVIDERS: PCP Family Medicine; Referring Provider Family Medicine; Visit Provider Family Medicine
DX: Z86.010 Personal history of colon polyps (principal); E66.01 Morbid (severe) obesity due to excess calories; Z68.42 Body mass index [BMI] 45.0-49.9, adult; Z80.0 Family history of malignant neoplasm of digestive organs; R63.4 Abnormal weight loss; E03.9 Hypothyroidism, unspecified; I10 Essential (primary) hypertension
CPT/HCPCS: 36415; 80053; 80061; 82043; 82570; 84443; 85651; 86140

== ENCOUNTER → 2022-02-10 09:57 | Outpatient (CLI) | payer BC, SELFPAY ==
[2021-09-13 10:46] VITALS: BMI 49.4
[2022-02-10 13:08] LABS: Influenza A - CEPHEID Flu A NEGATIVE (NEGATIVE); Influenza B - CEPHEID Flu B NEGATIVE (NEGATIVE); Respiratory Syncytial Virus Negative (Negative)
[2022-02-10 15:34] LABS: COVID-19 CEPHEID PCR (VTM/NP) Negative (Negative)
== END ==
PROVIDERS: PCP Family Medicine; Referring Provider Family Medicine; Visit Provider Family Medicine
DX: Z20.822 Contact with and (suspected) exposure to COVID-19 (principal)
CPT/HCPCS: 0241U

== ENCOUNTER → 2022-02-23 08:25 | Outpatient (CLI) | payer BC, SELFPAY ==
[2021-09-13 10:46] VITALS: BMI 49.4
[2022-02-23 10:03] LABS: Cholesterol 177 mg/dL (140-199); HDL Cholesterol 43 mg/dL (40-60); LDL Cholesterol Calculated 114 mg/dL (<100); Triglycerides 98 mg/dL (35-150)
== END ==
PROVIDERS: PCP Family Medicine; Referring Provider Family Medicine; Visit Provider Family Medicine
DX: E03.9 Hypothyroidism, unspecified (principal); E66.01 Morbid (severe) obesity due to excess calories; Z68.42 Body mass index [BMI] 45.0-49.9, adult
CPT/HCPCS: 36415; 80061

== ENCOUNTER 2022-03-02 12:45 | Emergency (ER) | payer BC, SELFPAY ==
[2021-09-13 10:46] VITALS: BMI 49.4
[2022-03-02] VITALS (21 sets, daily range): BP systolic 87–136; BP diastolic 51–91; PULSE 67–86; RESP 14–31; TEMP 36.5; O2SAT 93–100; BMI 41.1
--- NOTE | 2022-03-02 12:59 | DI.RAD.S_ITS ---
PROCEDURE: XR CHEST 1V INDICATIONS: chest pain TECHNIQUE: One view of the chest was acquired. COMPARISON: [facility], CR, XR CHEST 2V, 09/28/2019, 12:57. FINDINGS: Surgical changes and devices: None. Lungs and pleura: Lungs are clear. No pleural effusions or pneumothorax. Mediastinum: Mediastinal contours appear normal. Heart size is normal. Bones and chest wall: No suspicious bony lesions. Overlying soft tissues appear unremarkable. IMPRESSION: No acute cardiopulmonary pathology. Dictated by: Sarbjit Hdz M.D. on 03/02/2022 at 13:32 Approved by: Sarbjit Hdz M.D. on 03/02/2022 at 13:32
[2022-03-02 13:26] LABS: Add Manual Diff / Slide Review NO; Basophils Absolute Auto 100 /uL (0-100); Basophils Percent Auto 0.8 % (0-2); Eosinophils Absolute Auto 100 /uL (0-450); Eosinophils Percent Auto 0.9 % (2-4); Hematocrit 41.2 % (36-46); Hemoglobin 13.8 g/dL (12.0-16.0); Lymphocytes Absolute Auto 2400 /uL (1100-4500); Lymphocytes Percent Auto 28.8 % (25-40); Mean Corpuscular HGB Conc 33.6 % (30-36); Mean Corpuscular Hemoglobin 28.3 PG (26-34); Mean Corpuscular Volume 84.3 fL (80-100); Monocytes Absolute Auto 600 /uL (0-900); Monocytes Percent Auto 7.2 % (3-14); Neutrophils Absolute Auto 5300 /uL (1500-7000); Neutrophils Percent Auto 62.3 % (50-75); Platelet Count 317 X10^3/uL (150-400); Red Blood Cell Count 4.88 X10^6/uL (4.0-5.2); Red Cell Distribution Width 13.5 % (11.6-14.8); White Blood Cell Count 8.5 X10^3/uL (4.5-11.0)
[2022-03-02 13:44] LABS: Alanine Aminotransferase 18 IU/L (<35); Albumin 4.5 g/dL (3.5-5.0); Albumin Globulin Ratio 1.4 (1.0-2.8); Alkaline Phosphatase 92 U/L (38-126); Aspartate Aminotransferase 26 IU/L (14-36); BUN Creatinine Ratio 22.7 (6-22); Bilirubin Total 0.5 mg/dL (0.2-1.3); Blood Urea Nitrogen 17 mg/dL (7-17); Calcium 9.3 mg/dL (8.4-10.2); Carbon Dioxide 24 mmol/L (22-32); Chloride 104 mmol/L (98-107); Creatine Kinase 92 U/L (30-135); Estimated Glomerular Filt Rate > 60 mL/min (>60); Globulin 3.2 g/dL (1.7-4.1); Glucose 99 mg/dL (80-110); HEMOLYSIS < 15 (0-50); Lipase 40 U/L (23-300); Potassium 3.7 mmol/L (3.4-5.1); Sodium 138 mmol/L (137-145); Total Protein 7.7 g/dL (6.3-8.2)
[2022-03-02 13:54] LABS: Troponin I < 0.012 ng/mL (0.01-0.034)
--- NOTE | 2022-03-02 16:16 | ED_ITS ---
HPI - Chest Pain General Chief Complaint: Chest Pain Stated Complaint: Chest pains Time Seen by Provider: 03/02/22 16:16 Source: patient Mode of arrival: Ambulatory Limitations: no limitations History of Present Illness HPI narrative: Patient is a 62-year-old female who has a history of paroxysmal SVT, morbid obesity although she has lost 50 lb in the last 1 year, asthma presenting today with chest discomfort. She says for last 3 weeks every night she has woken up with left arm pain. She says it goes away by the morning and does not return during the daytime. However today she woke up left arm pain persisted. She has had some increasing shortness of breath with exertion she notes that going up stairs is a bit harder. She does not have to stop. She has noted some chest twinges and some heaviness as well. She says she just got over a cold a couple of weeks ago since then she has had some increasing shortness of breath. She denies any recent travel. She denies any orthopnea. No peripheral edema. No known coronary artery disease although she has maternal grandmother and grandfather both of MIs in their 60s. She denies any smoking history. Related Data Home Medications Medication Instructions Recorded Confirmed cholecalciferol (vitamin D3) 10,000 unit PO DAILY 06/08/18 10/10/20 co q enzyme 100 mg PO DAILY 06/08/18 10/10/20 curica 1,405 mg PO DAILY 06/08/18 10/10/20 multivitamin 1 tab PO DAILY 06/08/18 10/10/20 omega 3 1,000 mg PO DAILY 06/08/18 10/10/20 potassium 99 mg PO DAILY 06/08/18 10/10/20 probiotic 1 cap PO DAILY 06/08/18 10/10/20 magnesium 200 mg tablet 400 mg PO DAILY 11/05/18 10/10/20 Previous Rx's Medication Instructions Recorded losartan 50 mg tablet 50 mg PO DAILY #90 tab 06/29/21 triamterene 37.5 See Rx Instructions .ROUTE 12/10/21 mg-hydrochlorothiazide 25 mg .COMPLEX #90 cap capsule albuterol sulfate 90 mcg/actuation 2 puff INHALATION Q4HR #18 gram 02/10/22 aerosol inhaler (Ventolin HFA) beclomethasone dipropionate 40 2 inh INHALATION BID #31.8 gram 02/10/22 mcg/actuation HFA breath activated aerosol (Qvar RediHaler) levothyroxine 50 mcg tablet See Rx Instructions .ROUTE 03/01/22 (Synthroid) .COMPLEX #30 tab Allergies Allergy/AdvReac Type Severity Reaction Status Date / Time erythromycin base Allergy Mild Rash Verified 10/10/20 15:38 [ERYTHROMYCIN BASE] Review of Systems Review of Systems Narrative: GENERAL: Denies chills, fatigue, malaise, fever, sweats, travel HEENT: Denies sinus pain, ear pain, sore throat, difficulty swallowing, neck pain RESPIRATORY: See HPI CARDIOVASCULAR: See HPI GASTROINTESTINAL: Denies nausea, vomiting, abdominal pain, diarrhea, constipa tion, melena. : Denies dysuria, frequency, incontinence, hematuria, urinary retention, flank pain. MUSCULOSKELETAL: Denies weakness, joint pain, or bony pain SKIN: No rash, no erythema, no pruritus NEUROLOGIC: Denies weakness, dizziness, headache, numbness, change in speech, confusion PSYCHIATRIC: No concerning psychosocial issues. 12 point review of systems is negative except for those stated above and HPI Patient History Medical History Asthma Benign essential hypertension delivery delivered Essential tremor HTN (hypertension) Hypothyroid Intermittent asthma Kidney stones Palpitations Paroxysmal SVT (supraventricular tachycardia) Seasonal allergies Surgical History Hx of laparoscopic gastric banding (~2004) Hx of lithotripsy S/P excision of lipoma (10/11/16) Status post surgery (07/23/08) Family History Father Malignant neoplasm of colon, unspecified part of colon Family/Other Tremor of unknown origin Mother Hypertension Heart disease Social History marital status: household members: spouse and children occupational status: employed Smoking Status: Never smoker alcohol intake: current substance use type: does not use Smoking Status: Never smoker alcohol intake frequency: a few times a month Substance Use Type: does not use Exam Initial Vital Signs Initial Vital Signs: Vital Signs Temperature 97.7 F 03/02/22 12:54 Pulse Rate 86 03/02/22 12:54 Respiratory Rate 20 03/02/22 12:54 Blood Pressure 136/91 H 03/02/22 12:54 Pulse Oximetry 97 03/02/22 12:54 GENERAL: Alert pleasant well-appearing 6-year-old female and in no acute distress. HEENT: Head atraumatic,EOMI, pupils reactive, face symmetric, moist mucous membranes CARDIOVASCULAR: Regular rate and rhythm without murmurs, rubs or gallops. RESPIRATORY: Breath sounds equal bilaterally, no wheezes rales or rhonchi. ABDOMEN: Soft, nontender. Normoactive bowel sounds all 4 quadrants. No guarding or rebound. EXTREMITIES: Normal range of motion, no clubbing or edema. Neurovascularly intact NEUROLOGICAL: Alert and oriented x4.Normal gait and speech. SKIN: Warm, dry, no laceration, no petechiae, no rashes or lesions. Scores HEART Score Heart Score history: Slightly Suspicious Heart Score EKG: Normal Heart Score Age: 45-64 years old Heart Score risk factors: 1-2 risk factors Heart Score troponin: < or = to normal limit Heart Score Total: 2 PERC Score Age greater than or equal to 50 years: Yes Heart rate greater than or equal to 100 bpm: No Room Air O2 Sat less than 95%: No Unilateral leg swelling: No Recent trauma or surgery: No Hemoptysis: No Prior PE or DVT: No Hormone Use: No Total PERC Score: 1 Course Orders Ordered: ED Orders 03/02/22 12:59 XR chest 1V Stat EKG-12 Lead Stat 03/02/22 13:10 Complete Blood Count AUTO DIFF Stat Comprehensive Metabolic Panel Stat D Dimer Stat Lipase Stat Magnesium Stat Troponin & CK Cardiac Panel Stat 03/02/22 16:25 EKG-12 Lead Stat 03/02/22 17:08 BNP [NT-proBNP (BNP-Adult 18+)] Stat Trop I [Troponin I] Stat Vital Signs Vital signs: Vital Signs - 8 hr 03/02/22 12:54 03/02/22 13:16 03/02/22 13:17 Temperature 97.7 F Pulse Rate 86 80 78 Respiratory Rate 20 Blood Pressure 136/91 H 122/75 Pulse Oximetry 97 95 94 03/02/22 13:30 03/02/22 14:00 03/02/22 14:01 Temperature Pulse Rate 78 75 73 Respiratory Rate 17 15 Blood Pressure 124/77 113/72 Pulse Oximetry 97 93 94 03/02/22 14:30 03/02/22 15:00 03/02/22 15:30 Temperature Pulse Rate 67 72 71 Respiratory Rate 14 15 Blood Pressure 118/75 109/70 Pulse Oximetry 97 98 99 03/02/22 15:37 03/02/22 16:00 03/02/22 16:01 Temperature Pulse Rate 76 73 73 Respiratory Rate 24 19 20 Blood Pressure 115/68 106/72 Pulse Oximetry 97 99 99 03/02/22 16:30 03/02/22 16:31 03/02/22 17:00 Temperature Pulse Rate 74 73 73 Respiratory Rate 26 H 19 22 Blood Pressure 107/66 Pulse Oximetry 98 99 99 03/02/22 17:01 03/02/22 17:04 03/02/22 17:30 Temperature Pulse Rate 72 70 76 Respiratory Rate 24 18 26 H Blood Pressure 87/51 L 116/60 Pulse Oximetry 100 99 98 MDM - Chest Pain Lab Data Result diagrams: 03/02/22 13:10 03/02/22 13:10 Labs: Lab Results 03/02/22 03/02/22 03/02/22 Range/Units 13:10 13:10 13:10 WBC 8.5 (4.5-11.0) X10^3/uL RBC 4.88 (4.0-5.2) X10^6/uL Hgb 13.8 (12.0-16.0) g/dL Hct 41.2 (36-46) % MCV 84.3 (80-100) fL MCH 28.3 (26-34) PG MCHC 33.6 (30-36) % RDW 13.5 (11.6-14.8) % Plt Count 317 (150-400) X10^3/uL Neut % (Auto) 62.3 (50-75) % Lymph % (Auto) 28.8 (25-40) % [place] % (Auto) 7.2 (3-14) % Eos % (Auto) 0.9 L (2-4) % Baso % (Auto) 0.8 (0-2) % Neut # (Auto) 5300 (7243-4131) /uL Lymph # (Auto) 2400 (6621-8437) /uL [place] # (Auto) 600 (0-900) /uL Eos # (Auto) 100 (0-450) /uL Baso # (Auto) 100 (0-100) /uL D-Dimer < 200 (<230) ng/mL Sodium 138 (137-145) mmol/L Potassium 3.7 (3.4-5.1) mmol/L Chloride 104 (98-107) mmol/L Carbon Dioxide 24 (22-32) mmol/L BUN 17 (7-17) mg/dL Creatinine 0.75 (0.52-1.04) mg/dL Estimated GFR > 60 (>60) mL/min BUN/Creatinine Ratio 22.7 H (6-22) Glucose 99 (80-110) mg/dL Calcium 9.3 (8.4-10.2) mg/dL Magnesium 2.0 (1.6-2.3) mg/dL Total Bilirubin 0.5 (0.2-1.3) mg/dL AST 26 (14-36) IU/L ALT 18 (<35) IU/L Alkaline Phosphatase 92 (38-126) U/L Total Creatine Kinase 92 (30-135) U/L CK-MB (CK-2) TNP CK-MB (CK-2) Rel Index TNP Troponin I < 0.012 (0.01-0.034) ng/mL NT-Pro-B Natriuret Pep (<125) pg/mL Total Protein 7.7 (6.3-8.2) g/dL Albumin 4.5 (3.5-5.0) g/dL Globulin 3.2 (1.7-4.1) g/dL Albumin/Globulin Ratio 1.4 (1.0-2.8) Lipase 40 (23-300) U/L /09/13 Range/Units 17:08 WBC (4.5-11.0) X10^3/uL RBC (4.0-5.2) X10^6/uL Hgb (12.0-16.0) g/dL Hct (36-46) % MCV (80-100) fL MCH (26-34) PG MCHC (30-36) % RDW (11.6-14.8) % Plt Count (150-400) X10^3/uL Neut % (Auto) (50-75) % Lymph % (Auto) (25-40) % [place] % (Auto) (3-14) % Eos % (Auto) (2-4) % Baso % (Auto) (0-2) % Neut # (Auto) (2414-5565) /uL Lymph # (Auto) (2560-0193) /uL [place] # (Auto) (0-900) /uL Eos # (Auto) (0-450) /uL Baso # (Auto) (0-100) /uL D-Dimer (<230) ng/mL Sodium (137-145) mmol/L Potassium (3.4-5.1) mmol/L Chloride (98-107) mmol/L Carbon Dioxide (22-32) mmol/L BUN (7-17) mg/dL Creatinine (0.52-1.04) mg/dL Estimated GFR (>60) mL/min BUN/Creatinine Ratio (6-22) Glucose (80-110) mg/dL Calcium (8.4-10.2) mg/dL Magnesium (1.6-2.3) mg/dL Total Bilirubin (0.2-1.3) mg/dL AST (14-36) IU/L ALT (<35) IU/L Alkaline Phosphatase (38-126) U/L Total Creatine Kinase (30-135) U/L CK-MB (CK-2) CK-MB (CK-2) Rel Index Troponin I < 0.012 (0.01-0.034) ng/mL NT-Pro-B Natriuret Pep 65 (<125) pg/mL Total Protein (6.3-8.2) g/dL Albumin (3.5-5.0) g/dL Globulin (1.7-4.1) g/dL Albumin/Globulin Ratio (1.0-2.8) Lipase (23-300) U/L Imaging Data Chest x-ray: Radiologist's Impression: XRay Report Signed Patient: Kiersten Gannon MR#: [id number] : 1960 Acct:[id number] Age/Sex: 62 / F Date of Service: 03/02/22 Loc: ED Accession Number: [id number] ?? Procedure: XR chest 1V Ordering Provider: Melany Jefferson D.O. PROCEDURE:? XR CHEST 1V ? INDICATIONS:? chest pain ? TECHNIQUE:? One view of the chest was acquired.? ? COMPARISON:? [facility], CR, XR CHEST 2V, 09/28/2019, 12:57. ? FINDINGS:? ? Surgical changes and devices:? None.? ? Lungs and pleura:? Lungs are clear.? No pleural effusions or pneumothorax.? ? Mediastinum:? Mediastinal contours appear normal.? Heart size is normal.? ? Bones and chest wall:? No suspicious bony lesions.? Overlying soft tissues appear unremarkable.? ? IMPRESSION:? No acute cardiopulmonary pathology. ? ? Dictated by: Sarbjit Hdz M.D. on 03/02/2022 at 13:32 ? ? ECG Data Interpretation: Normal sinus rhythm rate 84 NM interval 154 QRS [address] changes Normal sinus rhythm rate 69 year interval 180 QRS [address] changes similar to previous EKG MDM Narrative Medical decision making narrative: Patient is having left arm pain every night while sleeping but not during the day. She started having some arm pain and today. She has also been experiencing some shortness of breath with exertion. 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 I do not think her left arm pain only at night is related to her heart. BNP is negative D-dimer is negative unlikely to be congestive heart failure or pulmonary embolism. She also has asthma and recently her cold. This may be the cause of her shortness of breath. I do strongly recommend that she have an outpatient stress test. The shortness of breath has been going on for while she is here today mostly because of her left arm pain. At this time she has 2- troponin EKG does not show any abnormality. I discussed all of this with patient and her . I discussed all findings with the patient, Education has been performed regarding treatment plan, diagnosis, warning signs and symptoms and all concerns have been addressed. Verbally agree with and understood all of the above. Discharge Plan Departure Patient Disposition: Home Clinical Impression: Atypical chest pain Instructions: DI for Atypical Chest Pain Activity Restrictions/Additional Instructions: *You have been diagnosed with atypical chest pain *What to do: At this time the you still need further workup such as stress test and echocardiogram. Today emergency department workup is reassuring. *Continue to take medications as directed *Follow up with your primary care provider in 2-3 days or call [phone] *Return to ER if you should have increasing chest pain shortness of breath arm pain palpitations or any new, worsening or concerning symptoms Prescriptions: No Action losartan 50 mg tablet 50 mg PO DAILY Qty: 90 3RF Rx Instructions: Take one tablet by mouth daily. triamterene-hydrochlorothiazid 37.5-25 mg capsule See Rx Instructions .ROUTE .COMPLEX Qty: 90 3RF Dose Instruction: TAKE 1 CAPSULE DAILY Rx Instructions: TAKE 1 CAPSULE DAILY albuterol sulfate [Ventolin HFA] 90 mcg/actuation HFA aerosol inhaler 2 puff inhalation Q4HR Qty: 18 3RF Qvar RediHaler 40 mcg/actuation HFA aerosol breath activated 2 inh INHALATION BID Qty: 31.8 3RF levothyroxine [Synthroid] 50 mcg tablet See Rx Instructions .ROUTE .COMPLEX Qty: 30 1RF Dose Instruction: TAKE 1 TABLET DAILY IN THE MORNING Rx Instructions: TAKE 1 TABLET DAILY IN THE MORNING magnesium 200 mg tablet 400 mg PO DAILY 0RF cholecalciferol (vitamin D3) 10,000 unit PO DAILY 0RF multivitamin 1 tab PO DAILY 0RF curica 1,405 mg PO DAILY 0RF omega 3 1,000 mg PO DAILY 0RF probiotic 1 cap PO DAILY 0RF potassium 99 mg PO DAILY 0RF co q enzyme 100 mg PO DAILY 0RF Referrals: Erica White MD [Primary Care Provider] -
[2022-03-02 17:06] LABS: D Dimer < 200 ng/mL (<230)
[2022-03-02 17:58] LABS: NT-proBNP (BNP-Adult 18+) 65 pg/mL (<125); Troponin I < 0.012 ng/mL (0.01-0.034)
== END 2022-03-02 18:39 | disposition home or self-care (01) ==
PROVIDERS: Emergency Provider Emergency Medicine; PCP Family Medicine
DX: R07.89 Other chest pain (principal); R06.02 Shortness of breath
CPT/HCPCS: 36415; 71045; 80053; 82550; 83690; 83735; 83880; 84484; 85025; 85379; 93005; 99283; 99284

== ENCOUNTER → 2022-03-12 09:35 | Outpatient (CLI) | payer BC, SELFPAY ==
[2021-09-13 10:46] VITALS: BMI 49.4
--- NOTE | 2022-03-12 09:37 | DI.RAD.S_ITS ---
PROCEDURE: XR SHOULDER RT MIN 2V INDICATIONS: arm numbness TECHNIQUE: 3 views of the shoulder were acquired. COMPARISON: None. FINDINGS: Bones: No fractures or dislocations. No suspicious bony lesions. Visualized ribs appear intact. Soft tissues: No suspicious soft tissue calcifications. IMPRESSION: Unremarkable right shoulder radiographs Approved by: Mustapha Hays M.D. on 03/12/2022 at 11:37
--- NOTE | 2022-03-12 09:37 | DI.RAD.S_ITS ---
PROCEDURE: XR SHOULDER LT MIN 2V INDICATIONS: arm numbness TECHNIQUE: 3 views of the shoulder were acquired. COMPARISON: None. FINDINGS: Bones: No fractures or dislocations. No suspicious bony lesions. Visualized ribs appear intact. Soft tissues: No suspicious soft tissue calcifications. IMPRESSION: Unremarkable left shoulder radiographs Approved by: Mustapha Hays M.D. on 03/12/2022 at 11:38
--- NOTE | 2022-03-12 09:37 | DI.RAD.S_ITS ---
PROCEDURE: XR CERVICAL SPINE 2V OR 3V INDICATIONS: arm numbness TECHNIQUE: 3 view(s) of the cervical spine were acquired. COMPARISON: None. FINDINGS: Bones: No fractures or dislocations to the T1 level. The lateral masses of C1 appear intact on the odontoid view. No suspicious bony lesions. Degenerative disc space narrowing and facet sclerosis noted in the lower cervical spine. Mild grade 1 retrolisthesis present at C5-6. Soft tissues: No prevertebral soft tissue swelling. IMPRESSION: Degenerative changes without fracture or foreign body Approved by: Mustapha Hays M.D. on 03/12/2022 at 11:36
== END ==
PROVIDERS: PCP Family Medicine; Referring Provider Family Medicine; Visit Provider Family Medicine
DX: R20.0 Anesthesia of skin (principal); R20.2 Paresthesia of skin; M47.812 Spondylosis without myelopathy or radiculopathy, cervical region
CPT/HCPCS: 72040; 73030

== ENCOUNTER → 2022-04-20 13:27 | Outpatient (CLI) | payer BC, SELFPAY ==
[2021-09-13 10:46] VITALS: BMI 49.4
--- NOTE | 2022-04-20 13:30 | DI.RAD.S_ITS ---
PROCEDURE: XR HUMERUS LT 2V INDICATIONS: upper arm pain TECHNIQUE: 2 views of the humerus were acquired. COMPARISON: None. FINDINGS: Bones: No fractures or dislocations. No suspicious bony lesions. Soft tissues: No suspicious soft tissue calcifications. IMPRESSION: No acute osseous abnormality. Dictated by: Hunter Rasmussen M.D. on 04/20/2022 at 18:41 Approved by: Hunter Rasmussen M.D. on 04/20/2022 at 18:42
[2022-04-20 14:52] LABS: COVID19 -Nasal RAPID Negative (Negative)
--- NOTE | 2022-04-21 11:47 | PM.TREADMILL ---
Cardiac Stress Test Report Referral & Results Date Patient Seen: 04/21/22 Time Patient Seen: 11:48 Requesting provider: Buffy Rawls Indication: Chest pain, SVT Rest ECG: Sinus rhythm Procedure Note: After Lexiscan injection had minimal dyspnea and chest fullness in sternum area No significant ST changes after Lexiscan injection Rare PVC Chest fullness resolved in recovery Impression: Symptom positive Lexiscan stress test Nuclear images pending Please note: Actual ECG tracings can be found in the PACS system.
--- NOTE | 2022-04-21 19:41 | DI.NM.S_ITS ---
DATE OF SERVICE: 04/20/2022 PROCEDURE PERFORMED: Pharmacologic vasodilator stress and rest myocardial perfusion imaging with gating to assess ejection fraction and regional wall motion. ORDERING PROVIDER: Buffy Rawls DO. INDICATIONS: The patient is a 62-year-old obese diabetic female with chest pain and documented SVT. CARDIAC STRESS: Per protocol, 0.4 mg of regadenoson was infused with a normal hemodynamic response. She had minimal dyspnea and slight chest fullness with regadenoson. Her resting ECG shows sinus rhythm with fairly normal ST segments. With stress, there are no significant ST-segment shifts. There were rare isolated PVCs but no other arrhythmias. Per protocol, 25.1 millicuries of technetium-99m Myoview was injected and she was imaged 10 minutes later using a gated SPECT acquisition protocol. The day prior while at rest, she had been injected with 25.5 millicuries of technetium- 99m Myoview was imaged 20 minutes later, again using quantitated gated SPECT protocol. FINDINGS: 1. Raw data: There is fair myocardial tracer uptake with fairly prominent breast shadows that clearly produce some attenuation. Lung/heart ratio is normal at 0.21 with a normal TID ratio of 0.96. 2. Quantitated gated SPECT: Post-stress ejection fraction is 76% without any focal wall motion abnormality and specifically the anterior wall appears to have normal contractility. The resting ejection fraction is 74% with a normal resting end-diastolic volume of 95 mL. 3. Myocardial perfusion imaging: Post-stress supine images shows a mild perfusion defect in the mid anterior wall, but sparing the apex. This defect completely resolves on the prone images consistent with breast attenuation artifact. The resting images show an identical perfusion pattern without any significant improvement. IMPRESSION: 1. Normal myocardial perfusion study. 2. Mild fixed anterior perfusion defect that resolves on prone imaging, consistent with breast attenuation artifact. There is no compelling evidence for myocardial ischemia or previous myocardial infarction. 3. Normal left ventricular systolic function without any focal wall motion abnormality. 4. Mild chest fullness with regadenoson but with no ECG changes of ischemia. There were isolated PVCs but no complex ventricular ectopy. El Gibson Kiersten - STEFANIA/joseph/jermain doc#: [id number]/job#: [id number] dd: 04/21/2022 17:07:00 dt: 04/21/2022 18:05:00 DICTATING MD/COPIES TO: [place] MD; Buffy Rawls, DO COPIES MNE: NIKOLAS;
== END ==
PROVIDERS: PCP Family Medicine; Referring Provider Family Medicine; Visit Provider Family Medicine
DX: R07.89 Other chest pain (principal); I47.1 Supraventricular tachycardia; I10 Essential (primary) hypertension; I49.3 Ventricular premature depolarization; M79.602 Pain in left arm
CPT/HCPCS: 73060; 78452; 87635; 93017; A9502; J2785

== ENCOUNTER → 2022-04-21 12:42 | Outpatient (CLI) | payer BC, SELFPAY ==
[2021-09-13 10:46] VITALS: BMI 49.4
--- NOTE | 2022-04-21 12:44 | DI.ECHO.S_ITS ---
[facility]---------+ [facility] +---------+ : : [address] [place] : : : : [id number] : : : : Phone: [phone] Echocardiogram Report + + :Name: FRANK JOINER Study Date: 04/21/2022 Height: 61 in : :[facility] ReadingLocation: Weight: 211 lb : : Gender: Female BSA: 1.9 m2 : :: 1960 Age: 62 yrs BP: 117/83 mmHg: :Reason For Study: PALPITATIONS : :Ordering Physician: EDELMIRA, : :WYATT Performed By: Carey Louis : :Referring: WYATT HICKEY : + + Interpretation Summary The ejection fraction is estimated to be 55-60%. Diastolic parameters suggest probable normal left ventricular diastolic function and normal filling pressures. The right ventricle is normal in size and function. There is mild aortic regurgitation. Pulmonary artery pressures cannot be estimated because of the lack of a measurable TR jet velocity. The ascending aorta is mildly enlarged. Procedure: A two-dimensional transthoracic echocardiogram with color flow and Doppler was performed. The study quality was technically adequate. There is no prior echocardiogram noted for this patient. The patient was in sinus bradycardia with heart rates between 55-65 bpm during the exam. Left Ventricle: The left ventricle is normal in size and wall thickness. The ejection fraction is estimated to be 55-60%. Diastolic parameters suggest probable normal left ventricular diastolic function and normal filling pressures. Right Ventricle: The right ventricle is normal in size and function. Atria: The left atrial size is normal. Right atrial size is normal. There is no Doppler evidence for an interatrial shunt. Mitral Valve: The mitral valve is normal in structure and function. There is trace mitral regurgitation. Aortic Valve: The aortic valve is trileaflet. The aortic valve opens well. There is no aortic valve stenosis. There is mild aortic regurgitation. Tricuspid Valve: The tricuspid valve is normal in structure and function. There is trace tricuspid regurgitation. Pulmonary artery pressures cannot be estimated because of the lack of a measurable TR jet velocity. Pulmonic Valve: The pulmonic valve is not well visualized. There is trace pulmonic regurgitation. Great Vessels: The aortic root is normal size. The ascending aorta is mildly enlarged. The IVC is of normal diameter and collapses greater than 50% with a sniff. This suggests a low right atrial pressure of 3 mm Hg. Pericardium/ Pleura There is no pericardial effusion. There is no pleural effusion. MMode/2D Measurements & Calculations LVIDd: 4.8 cm LVOT diam: 2.1 cm LVIDs: 3.4 cm Ao root diam: 3.3 cm FS: 30.4 % asc Aorta Diam: 3.9 cm IVSd: 0.82 cm Ao Arch Diam (Prox Trans): 3.0 cm LVPWd: 0.73 cm LV olivares. diameter/BSA (cm/m^2): 2.5 LV sys. diameter/BSA (cm/m^2): 1.7 LA A2 area: 19.0 cm2 RA long axis: 4.7 cm LA A4 area: 18.8 cm2 RA area: 12.2 cm2 LA length (vol): 5.1 cm RA vol: 27.2 ml LA vol: 59.2 ml RA : 14.1 ml/m2 LA vol index: 30.7 ml/m2 IVC diam: 1.3 cm RVD1 (basal): 3.2 cm RVD2 (mid): 2.8 cm TAPSE: 1.7 cm Doppler Measurements & Calculations Ao V2 max: 124.6 cm/sec LVOT Max Antonio: 90.8 cm/sec Ao V2 mean: 82.8 cm/sec LV V1 max P.3 mmHg Ao max P.2 mmHg LV V1 VTI: 19.9 cm Ao mean P.2 mmHg DESIREE(I,D): 2.9 cm2 Ao V2 VTI: 24.3 cm DESIREE(V,D): 2.6 cm2 sev ratio: 0.82 DESIREE indexed to BSA (cm^2/m^2): 1.5 MV E max antonio: 60.3 cm/sec PA V2 max: 123.8 cm/sec MV A max natonio: 76.1 cm/sec PA V2 mean: 77.7 cm/sec MV E/A: 0.79 PA mean P.9 mmHg Med Peak E' Antonio: 6.1 cm/sec PA pr(Accel): 12.2 mmHg E/E' med: 9.8 Lat Peak E' Antonio: 7.4 cm/sec E/E' lat: 8.2 E/e' average: 9.0 MV dec time: 0.22 sec SV(LVOT): 71.3 ml Reading Physician:04:08 PM
== END ==
PROVIDERS: PCP Family Medicine; Referring Provider Family Medicine; Visit Provider Family Medicine
DX: I35.1 Nonrheumatic aortic (valve) insufficiency (principal); I77.89 Other specified disorders of arteries and arterioles; I47.1 Supraventricular tachycardia; R07.89 Other chest pain
CPT/HCPCS: 93306

== ENCOUNTER → 2022-05-24 14:55 | Outpatient (CLI) | payer BC, SELFPAY ==
[2021-09-13 10:46] VITALS: BMI 49.4
--- NOTE | 2022-05-24 14:57 | DI.MG.S_ITS ---
BILATERAL DIGITAL SCREENING MAMMOGRAM 3D/2D WITH CAD: 05/24/2022 CLINICAL: Routine screening. Comparison is made to exams dated: 07/17/2020 mammogram, 06/11/2020 mammogram, 06/10/2019 mammogram, and 04/23/2018 mammogram - . There are scattered fibroglandular elements in both breasts. Current study was also evaluated with a Computer Aided Detection (CAD) system. There are benign calcifications in both breasts. No significant masses, calcifications, or other findings are seen in either breast. There has been no significant interval change. IMPRESSION: BENIGN There is no mammographic evidence of malignancy. A 1 year screening mammogram is recommended. Based on the Tyrer Cuzick model (a risk assessment model) the patient's lifetime risk is 10.1% and her 10 year risk is 4.4%. According to the ACR, ACS, and NCCN guidelines, an annual breast MRI exam along with mammogram is recommended if the patient's lifetime risk is 20% or greater. This exam was interpreted at Station ID: [id number]. NOTE: For mammograms, a report in lay terms will be sent to the patient. Approximately 15% of breast malignancies will not be visualized mammographically. In the management of a palpable breast mass, a negative mammogram must not discourage biopsy of a clinically suspicious lesion. Electronically Signed By: Elias christian/jose manuel:05/24/2022 21:50:08 letter sent: Normal Exam ACR BI-RADS Category 2: Benign Finding(s) 3342F
== END ==
PROVIDERS: PCP Family Medicine; Referring Provider Family Medicine; Visit Provider Family Medicine
DX: Z12.31 Encounter for screening mammogram for malignant neoplasm of breast (principal)
CPT/HCPCS: 77063; 77067

== ENCOUNTER 2023-02-13 12:52 | Emergency (ER) | payer BC, SELFPAY ==
[2023-02-03 14:40] VITALS: BMI 49.4
[2023-02-13] VITALS (19 sets, daily range): BP systolic 128–169; BP diastolic 64–87; PULSE 67–96; RESP 14–22; TEMP 36.6; O2SAT 93–100; BMI 39.6
--- NOTE | 2023-02-13 13:09 | DI.RAD.S_ITS ---
PROCEDURE: XR CHEST 1V INDICATIONS: chest pain TECHNIQUE: One view of the chest was acquired. COMPARISON: [facility], CHEST 2 VIEW, 10/20/2016, 16:06. [facility], CHEST 2 VIEW, 12/17/2007, 17:09. FINDINGS: Surgical changes and devices: Gastric band. Lungs and pleura: Lungs are clear. No pleural effusions or pneumothorax. Mediastinum: Mediastinal contours appear normal. Heart size is normal. Bones and chest wall: No suspicious bony lesions. Overlying soft tissues appear unremarkable. IMPRESSION: No acute cardiopulmonary abnormality. Dictated by: Elias Cobian M.D. on 02/13/2023 at 15:48 Approved by: Elias Cobian M.D. on 02/13/2023 at 15:49
--- NOTE | 2023-02-13 13:14 | ED.GENADULT ---
HPI - General Adult <Andres Botello PA-C - Last Filed: 02/13/23 17:22> General Chief complaint: Shortness of Breath/Dyspnea Stated complaint: SOB sick T-7/has asthma inhaler not working Time Seen by Provider: 02/13/23 13:05 Source: patient Mode of arrival: Ambulatory History of Present Illness HPI narrative: 62-year-old female with past medical history hypothyroidism, hypertension, asthma presents to the ED with 1 day of breath. Patient states that she has been fighting a head cold for the last 8 days, endorses nasal congestion, rhinorrhea, clogged ears, dry cough, wheezing. Patient states she was wheezing this morning, used her albuterol inhaler which improved the wheezing, however she continued to feel tight in her chest and lightheaded and came to the ED. patient uses the QVAR inhaler and albuterol. Patient denies fever, chills, chest pain, nausea, vomiting, abdominal pain, dysuria, dizziness, syncope. Patient was seen by her PCP for a lump in the back of the right knee 2 weeks ago, ultrasound was ordered but patient has not had 1 yet. Related Data Home Medications Medication Instructions Recorded Confirmed co q enzyme 100 mg PO DAILY 06/08/18 02/01/23 curica 1,405 mg PO DAILY 06/08/18 02/01/23 multivitamin 1 tab PO DAILY 06/08/18 02/01/23 omega 3 1,000 mg PO DAILY 06/08/18 02/01/23 potassium 99 mg PO DAILY 06/08/18 02/01/23 probiotic 1 cap PO DAILY 06/08/18 02/01/23 magnesium 200 mg tablet 400 mg PO DAILY 11/05/18 02/01/23 cholecalciferol (vitamin D3) 5,000 unit PO DAILY 06/15/22 02/01/23 Previous Rx's Medication Instructions Recorded albuterol sulfate 90 mcg/actuation 2 puff inhalation Q4HR #18 grams 02/10/22 aerosol inhaler (Ventolin HFA) beclomethasone dipropionate 40 2 inh inhalation BID #31.8 grams 03/08/22 mcg/actuation HFA breath activated aerosol (Qvar RediHaler) losartan 25 mg tablet 25 mg PO DAILY #90 tabs 06/15/22 triamterene 37.5 See Rx Instructions .Route 10/31/22 mg-hydrochlorothiazide 25 mg .COMPLEX #90 caps capsule levothyroxine 50 mcg tablet See Rx Instructions .Route 12/14/22 (Synthroid) .COMPLEX #90 tabs prednisone 50 mg tablet 50 mg PO DAILY 5 days #5 tabs 02/13/23 Allergies Allergy/AdvReac Type Severity Reaction Status Date / Time erythromycin base Allergy Mild Rash Verified 02/13/23 13:08 [ERYTHROMYCIN BASE] Review of Systems <Andres Botello PA-C - Last Filed: 02/13/23 17:22> Review of Systems ROS Unobtainable: All systems reviewed & are unremarkable except as noted in HPI and below Constitutional Constitutional: Denies chills, Denies fatigue, Denies fever(s), Denies frequent falls, Denies lethargy and Denies weakness Eyes Eyes: Denies change in vision, Denies eye discharge, Denies irritation and Denies loss of vision ENT Ears, Nose, Mouth, and Throat: Denies change in voice, Denies dizziness, Reports nasal congestion, Reports nasal discharge, Denies neck pain, Denies sore throat and Denies throat swelling Cardiovascular Cardiovascular: Denies chest pain, Denies irregular heart rhythm, Denies lightheadedness, Denies palpitations, Reports dyspnea, Denies dyspnea on exertion and Denies orthopnea Respiratory Respiratory: Reports cough, Reports dyspnea, Denies dyspnea on exertion and Reports wheezing Gastrointestinal Gastrointestinal: Denies abdominal pain, Denies change in bowel habits, Denies diarrhea, Denies nausea and Denies vomiting Genitourinary Genitourinary: Denies hematuria, Denies flank pain, Denies urinary incontinence and Denies urinary urgency Musculoskeletal Musculoskeletal: Denies back pain, Denies muscle weakness, Denies neck pain, Denies numbness and Denies tingling Integumentary/Breasts Skin/Breast: Denies pruritus, Denies erythema, Denies rash and Denies wounds Neurologic Neurologic: Denies behavioral changes, Denies confusion, Denies dizziness, Denies frequent falls, Denies loss of vision, Denies numbness, Denies tingling and Denies weakness Psychiatric Psychiatric: Denies anxiety, Denies behavioral changes, Denies confusion, Denies depression, Denies homicidal ideation and Denies suicidal ideation Endocrine Endocrine: Denies fatigue, Denies flushing and Denies palpitations Hematologic/Lymphatic Hematologic/Lymphatic: Denies easy bruising Allergic/Immunologic Allergic/Immunologic: Denies urticaria, Denies throat swelling and Reports wheezing Patient History <Andres Botello PA-C - Last Filed: 02/13/23 17:22> Medical History Asthma Benign essential hypertension delivery delivered Essential tremor HTN (hypertension) Hypothyroid Intermittent asthma Kidney stones Palpitations Paroxysmal SVT (supraventricular tachycardia) Seasonal allergies Surgical History Hx of laparoscopic gastric banding (~2004) Hx of lithotripsy S/P excision of lipoma (10/11/16) Status post surgery (07/23/08) Family History Father Malignant neoplasm of colon, unspecified part of colon Family/Other Tremor of unknown origin Mother Hypertension Heart disease Social History marital status: household members: spouse and children occupational status: employed Smoking Status: Never smoker alcohol intake: current substance use type: does not use Smoking Status: Never smoker alcohol intake frequency: a few times a month Substance Use Type: does not use Exam <Andres Botello PA-C - Last Filed: 02/13/23 17:22> Narrative Exam Narrative: Const General:?cooperative, healthy appearing and comfortable [facility] Head:?normal to inspection Ears:?hearing grossly normal bilaterally Nose:?external nose normal Face and sinus:?normal facial exam and sinuses nontender Mouth:?oral mucosae normal Throat:?posterior oropharynx normal Eyes General:?appearance normal, both eyes and all related structures Neck Neck:?normal visual inspection and no lymphadenopathy noted Resp Effort & Inspection:?normal respiratory effort Auscultation:? Isolated wheeze in left upper quadrant. Breath sounds normal otherwise. Cardio Rate:?regular rate Rhythm:?regular rhythm Musculoskeletal Palpable lump to the back of the right knee, not tender to palpation. Neuro General:?patient alert, patient awake and patient oriented x3 Initial Vital Signs Initial Vital Signs: Vital Signs Temperature 97.8 F 02/13/23 12:55 Pulse Rate 78 02/13/23 12:55 Respiratory Rate 22 02/13/23 12:55 Blood Pressure 169/78 H 02/13/23 12:55 Pulse Oximetry 98 02/13/23 12:55 Oxygen Delivery Method Room Air 02/13/23 12:55 <Melany Jefferson DO - Last Filed: 02/16/23 03:43> Initial Vital Signs Initial Vital Signs: Vital Signs Temperature 97.8 F 02/13/23 12:55 Pulse Rate 78 02/13/23 12:55 Respiratory Rate 22 02/13/23 12:55 Blood Pressure 169/78 H 02/13/23 12:55 Pulse Oximetry 98 02/13/23 12:55 Oxygen Delivery Method Room Air 02/13/23 12:55 Course <Andres Botello PA-C - Last Filed: 02/13/23 17:22> Orders Ordered: Discontinued Medications Albuterol/Ipratropium (Albuterol/Ipratropium 3 Ml Ampul) 3 ml INH NOW ONE Stop: 02/13/23 13:32 Last Admin: 02/13/23 13:41 Dose: 3 ml Documented By: ANTOINETTE Albuterol/Ipratropium (Albuterol/Ipratropium 3 Ml Ampul) 3 ml INH NOW ONE Stop: 02/13/23 14:26 Last Admin: 02/13/23 14:39 Dose: 3 ml Documented By: ANTOINETTE Prednisone (Prednisone 20 Mg Tablet) 60 mg PO NOW ONE Stop: 02/13/23 13:33 Last Admin: 02/13/23 13:57 Dose: 60 mg Documented By: BRODY Vital Signs Vital signs: Vital Signs - 8 hr 02/13/23 12:55 02/13/23 12:56 02/13/23 12:57 Temperature 97.8 F Pulse Rate 78 78 Respiratory Rate 22 Blood Pressure 169/78 H Pulse Oximetry 98 93 98 Oxygen Delivery Method Room Air Oxygen Flow Rate Fraction of Inspired Oxygen 02/13/23 12:57 02/13/23 13:00 02/13/23 13:00 Temperature Pulse Rate 80 Respiratory Rate Blood Pressure 169/78 H 168/87 H Pulse Oximetry 99 Oxygen Delivery Method Oxygen Flow Rate Fraction of Inspired Oxygen 02/13/23 13:42 02/13/23 13:22 02/13/23 13:22 Temperature Pulse Rate 67 77 Respiratory Rate 18 Blood Pressure 160/80 H Pulse Oximetry 98 95 Oxygen Delivery Method Room Air Oxygen Flow Rate 0 Fraction of Inspired Oxygen 02/13/23 13:30 02/13/23 14:00 02/13/23 14:14 Temperature Pulse Rate 73 77 85 Respiratory Rate 20 Blood Pressure Pulse Oximetry 98 96 99 Oxygen Delivery Method Room Air Oxygen Flow Rate Fraction of Inspired Oxygen 02/13/23 14:14 02/13/23 14:39 02/13/23 14:30 Temperature Pulse Rate 82 Respiratory Rate 18 Blood Pressure 141/77 H 128/76 Pulse Oximetry 99 Oxygen Delivery Method Room Air Oxygen Flow Rate 0 Fraction of Inspired Oxygen 21 02/13/23 14:30 02/13/23 15:00 02/13/23 15:00 Temperature Pulse Rate 80 96 H Respiratory Rate 18 Blood Pressure 128/64 Pulse Oximetry 98 93 Oxygen Delivery Method Oxygen Flow Rate Fraction of Inspired Oxygen 02/13/23 15:32 02/13/23 15:39 02/13/23 15:39 Temperature Pulse Rate 93 H 86 Respiratory Rate 14 Blood Pressure 143/86 H Pulse Oximetry 100 Oxygen Delivery Method Oxygen Flow Rate Fraction of Inspired Oxygen 02/13/23 16:00 02/13/23 16:00 02/13/23 16:30 Temperature Pulse Rate 88 75 Respiratory Rate Blood Pressure 145/83 H Pulse Oximetry 95 98 Oxygen Delivery Method Oxygen Flow Rate Fraction of Inspired Oxygen 02/13/23 16:30 02/13/23 17:00 02/13/23 17:01 Temperature Pulse Rate 82 Respiratory Rate 18 Blood Pressure 129/78 141/70 H Pulse Oximetry 94 Oxygen Delivery Method Oxygen Flow Rate Fraction of Inspired Oxygen 02/13/23 17:01 02/13/23 17:15 02/13/23 17:15 Temperature Pulse Rate 89 80 Respiratory Rate Blood Pressure 150/73 H Pulse Oximetry 95 95 Oxygen Delivery Method Oxygen Flow Rate Fraction of Inspired Oxygen <Melany Jefferson DO - Last Filed: 02/16/23 03:43> Orders Ordered: Discontinued Medications Albuterol/Ipratropium (Albuterol/Ipratropium 3 Ml Ampul) 3 ml INH NOW ONE Stop: 02/13/23 13:32 Last Admin: 02/13/23 13:41 Dose: 3 ml Documented By: ANTOINETTE Albuterol/Ipratropium (Albuterol/Ipratropium 3 Ml Ampul) 3 ml INH NOW ONE Stop: 02/13/23 14:26 Last Admin: 02/13/23 14:39 Dose: 3 ml Documented By: ANTOINETTE Prednisone (Prednisone 20 Mg Tablet) 60 mg PO NOW ONE Stop: 02/13/23 13:33 Last Admin: 02/13/23 13:57 Dose: 60 mg Documented By: BRODY Vital Signs Vital signs: Vital Signs - 8 hr 02/13/23 12:55 02/13/23 12:56 02/13/23 12:57 Temperature 97.8 F Pulse Rate 78 78 Respiratory Rate 22 Blood Pressure 169/78 H Pulse Oximetry 98 93 98 Oxygen Delivery Method Room Air Oxygen Flow Rate Fraction of Inspired Oxygen 02/13/23 12:57 02/13/23 13:00 02/13/23 13:00 Temperature Pulse Rate 80 Respiratory Rate Blood Pressure 169/78 H 168/87 H Pulse Oximetry 99 Oxygen Delivery Method Oxygen Flow Rate Fraction of Inspired Oxygen 02/13/23 13:42 02/13/23 13:22 02/13/23 13:22 Temperature Pulse Rate 67 77 Respiratory Rate 18 Blood Pressure 160/80 H Pulse Oximetry 98 95 Oxygen Delivery Method Room Air Oxygen Flow Rate 0 Fraction of Inspired Oxygen 02/13/23 13:30 02/13/23 14:00 02/13/23 14:14 Temperature Pulse Rate 73 77 85 Respiratory Rate 20 Blood Pressure Pulse Oximetry 98 96 99 Oxygen Delivery Method Room Air Oxygen Flow Rate Fraction of Inspired Oxygen 02/13/23 14:14 02/13/23 14:39 02/13/23 14:30 Temperature Pulse Rate 82 Respiratory Rate 18 Blood Pressure 141/77 H 128/76 Pulse Oximetry 99 Oxygen Delivery Method Room Air Oxygen Flow Rate 0 Fraction of Inspired Oxygen 02/13/23 14:30 02/13/23 15:00 02/13/23 15:00 Temperature Pulse Rate 80 96 H Respiratory Rate 18 Blood Pressure 128/64 Pulse Oximetry 98 93 Oxygen Delivery Method Oxygen Flow Rate Fraction of Inspired Oxygen 02/13/23 15:32 02/13/23 15:39 02/13/23 15:39 Temperature Pulse Rate 93 H 86 Respiratory Rate 14 Blood Pressure 143/86 H Pulse Oximetry 100 Oxygen Delivery Method Oxygen Flow Rate Fraction of Inspired Oxygen 02/13/23 16:00 02/13/23 16:00 02/13/23 16:30 Temperature Pulse Rate 88 75 Respiratory Rate Blood Pressure 145/83 H Pulse Oximetry 95 98 Oxygen Delivery Method Oxygen Flow Rate Fraction of Inspired Oxygen 02/13/23 16:30 02/13/23 17:00 02/13/23 17:01 Temperature Pulse Rate 82 Respiratory Rate 18 Blood Pressure 129/78 141/70 H Pulse Oximetry 94 Oxygen Delivery Method Oxygen Flow Rate Fraction of Inspired Oxygen 02/13/23 17:01 02/13/23 17:15 02/13/23 17:15 Temperature Pulse Rate 89 80 Respiratory Rate Blood Pressure 150/73 H Pulse Oximetry 95 95 Oxygen Delivery Method Oxygen Flow Rate Fraction of Inspired Oxygen Medical Decision Making <Andres Botello PA-C - Last Filed: 02/13/23 17:22> Lab Data 02/13/23 13:25 02/13/23 13:25 Labs: Lab Results 02/13/23 02/13/23 02/13/23 Range/Units 13:10 13:25 13:25 WBC 8.5 (4.5-11.0) X10^3/uL RBC 4.55 (4.0-5.2) X10^6/uL Hgb 13.1 (12.0-16.0) g/dL Hct 38.1 (36-46) % MCV 83.6 (80-100) fL MCH 28.7 (26-34) PG MCHC 34.3 (30-36) % RDW 14.0 (11.6-14.8) % Plt Count 287 (150-400) X10^3/uL Neut % (Auto) 56.4 (50-75) % Lymph % (Auto) 32.1 (25-40) % [place] % (Auto) 8.5 (3-14) % Eos % (Auto) 1.9 L (2-4) % Baso % (Auto) 1.1 (0-2) % Neut # (Auto) 4800 (1128-2821) /uL Lymph # (Auto) 2700 (7358-2486) /uL [place] # (Auto) 700 (0-900) /uL Eos # (Auto) 200 (0-450) /uL Baso # (Auto) 100 (0-100) /uL PT 12.0 (10.1-12.7) SECONDS INR 1.0 (0.9-1.3) APTT 31 (26-36) SECONDS Sodium (137-145) mmol/L Potassium (3.4-5.1) mmol/L Chloride (98-107) mmol/L Carbon Dioxide (22-32) mmol/L BUN (7-17) mg/dL Creatinine (0.52-1.04) mg/dL Estimated GFR (>60) mL/min BUN/Creatinine Ratio (6-22) Glucose (80-110) mg/dL Calcium (8.4-10.2) mg/dL Magnesium (1.6-2.3) mg/dL Total Bilirubin (0.2-1.3) mg/dL AST (14-36) IU/L ALT (<35) IU/L Alkaline Phosphatase (38-126) U/L Total Creatine Kinase (30-135) U/L CK-MB (CK-2) (<2.37) ng/mL CK-MB (CK-2) Rel Index (1.5-5.0) % Troponin I (0.01-0.034) ng/mL NT-Pro-B Natriuret Pep (<125) pg/mL Total Protein (6.3-8.2) g/dL Albumin (3.5-5.0) g/dL Globulin (1.7-4.1) g/dL Albumin/Globulin Ratio (1.0-2.8) Lipase (23-300) U/L Chlamy pneumoniae PCR Not detected (Not Detect) Adenovirus (PCR) Not detected (Not Detect) B. pertussis DNA (PCR) Not detected (Not Detecte) B.parapertussis DNA PCR Not detected (Not Detecte) Coronavirus OC43 (PCR) Not detected (Not Detect) Coronavirus HKU1 (PCR) Not detected (Not Detect) Coronavirus 229E (PCR) Not detected (Not Detect) SARS-CoV-2 (PCR) Not detected (Not Detecte) Coronavirus NL63 (PCR) Not detected (Not Detect) Human Metapneumovir PCR Not detected (Not Detect) Influenza Type A (PCR) Not detected (Not Detect) Influenza Type B (PCR) Not detected (Not Detect) M. pneumoniae (PCR) Not detected (Not Detect) Parainfluenza 1 (PCR) Not detected (Not Detect) Parainfluenza 2 (PCR) Not detected (Not Detect) Parainfluenza 3 (PCR) Not detected (Not Detect) Parainfluenza 4 (PCR) Not detected (Not Detect) RSV (PCR) Not detected (Not Detect) Entero/Rhino (PCR) Detected H (Not Detect) 02/13/23 02/13/23 02/13/23 Range/Units 13:25 13:25 16:17 WBC (4.5-11.0) X10^3/uL RBC (4.0-5.2) X10^6/uL Hgb (12.0-16.0) g/dL Hct (36-46) % MCV (80-100) fL MCH (26-34) PG MCHC (30-36) % RDW (11.6-14.8) % Plt Count (150-400) X10^3/uL Neut % (Auto) (50-75) % Lymph % (Auto) (25-40) % [place] % (Auto) (3-14) % Eos % (Auto) (2-4) % Baso % (Auto) (0-2) % Neut # (Auto) (0902-3891) /uL Lymph # (Auto) (4644-7389) /uL [place] # (Auto) (0-900) /uL Eos # (Auto) (0-450) /uL Baso # (Auto) (0-100) /uL PT (10.1-12.7) SECONDS INR (0.9-1.3) APTT (26-36) SECONDS Sodium 137 (137-145) mmol/L Potassium 3.6 (3.4-5.1) mmol/L Chloride 104 (98-107) mmol/L Carbon Dioxide 28 (22-32) mmol/L BUN 10 (7-17) mg/dL Creatinine 0.61 (0.52-1.04) mg/dL Estimated GFR > 60 (>60) mL/min BUN/Creatinine Ratio 16.4 (6-22) Glucose 86 (80-110) mg/dL Calcium 8.7 (8.4-10.2) mg/dL Magnesium 2.0 (1.6-2.3) mg/dL Total Bilirubin 0.4 (0.2-1.3) mg/dL AST 24 (14-36) IU/L ALT 22 (<35) IU/L Alkaline Phosphatase 92 (38-126) U/L Total Creatine Kinase 107 100 (30-135) U/L CK-MB (CK-2) 1.02 TNP (<2.37) ng/mL CK-MB (CK-2) Rel Index 1.0 L TNP (1.5-5.0) % Troponin I < 0.012 < 0.012 (0.01-0.034) ng/mL NT-Pro-B Natriuret Pep 253 H (<125) pg/mL Total Protein 7.1 (6.3-8.2) g/dL Albumin 4.1 (3.5-5.0) g/dL Globulin 3.0 (1.7-4.1) g/dL Albumin/Globulin Ratio 1.4 (1.0-2.8) Lipase 38 (23-300) U/L Chlamy pneumoniae PCR (Not Detect) Adenovirus (PCR) (Not Detect) B. pertussis DNA (PCR) (Not Detecte) B.parapertussis DNA PCR (Not Detecte) Coronavirus OC43 (PCR) (Not Detect) Coronavirus HKU1 (PCR) (Not Detect) Coronavirus 229E (PCR) (Not Detect) SARS-CoV-2 (PCR) (Not Detecte) Coronavirus NL63 (PCR) (Not Detect) Human Metapneumovir PCR (Not Detect) Influenza Type A (PCR) (Not Detect) Influenza Type B (PCR) (Not Detect) M. pneumoniae (PCR) (Not Detect) Parainfluenza 1 (PCR) (Not Detect) Parainfluenza 2 (PCR) (Not Detect) Parainfluenza 3 (PCR) (Not Detect) Parainfluenza 4 (PCR) (Not Detect) RSV (PCR) (Not Detect) Entero/Rhino (PCR) (Not Detect) MDM Narrative Medical decision making narrative: 62-year-old female with past medical history hypothyroidism, hypertension, asthma presents to the ED with 1 day of breath. Concern for asthma exacerbation versus pneumonia versus allergic rhinitis versus URI versus ACS versus DVT versus PE versus other. Will obtain ultrasound right lower extremity to rule out DVT, although physical exam more consistent with a [place] cyst. Will obtain EKG, chest x-ray, labs, troponin, BNP, respiratory panel. Will give albuterol/ipratropium, prednisone. Will reassess. EKG x2, trop x2with no acute findings. Labs within normal limits. No DVTs detected on ultrasound. Respiratory panel positive for enterovirus/rhino virus. Patient's symptoms vastly improved with the dose of prednisone and 2 albuterol/ipratropium breathing treatments. Discussed findings with patient, counseled patient on asthma exacerbation. Recommend prednisone for the next 5 days, albuterol as needed for the wheezing. Patient agrees to follow-up with her PCP as soon as possible. ED return precautions were discussed with patient. Patient verbalized understanding. Medical records reviewed: Yes <Melany Jefferson, - Last Filed: 02/16/23 03:43> Lab Data Labs: Lab Results 02/13/23 02/13/23 02/13/23 Range/Units 13:10 13:25 13:25 WBC 8.5 (4.5-11.0) X10^3/uL RBC 4.55 (4.0-5.2) X10^6/uL Hgb 13.1 (12.0-16.0) g/dL Hct 38.1 (36-46) % MCV 83.6 (80-100) fL MCH 28.7 (26-34) PG MCHC 34.3 (30-36) % RDW 14.0 (11.6-14.8) % Plt Count 287 (150-400) X10^3/uL Neut % (Auto) 56.4 (50-75) % Lymph % (Auto) 32.1 (25-40) % [place] % (Auto) 8.5 (3-14) % Eos % (Auto) 1.9 L (2-4) % Baso % (Auto) 1.1 (0-2) % Neut # (Auto) 4800 (1224-8302) /uL Lymph # (Auto) 2700 (4349-0806) /uL [place] # (Auto) 700 (0-900) /uL Eos # (Auto) 200 (0-450) /uL Baso # (Auto) 100 (0-100) /uL PT 12.0 (10.1-12.7) SECONDS INR 1.0 (0.9-1.3) APTT 31 (26-36) SECONDS Sodium (137-145) mmol/L Potassium (3.4-5.1) mmol/L Chloride (98-107) mmol/L Carbon Dioxide (22-32) mmol/L BUN (7-17) mg/dL Creatinine (0.52-1.04) mg/dL Estimated GFR (>60) mL/min BUN/Creatinine Ratio (6-22) Glucose (80-110) mg/dL Calcium (8.4-10.2) mg/dL Magnesium (1.6-2.3) mg/dL Total Bilirubin (0.2-1.3) mg/dL AST (14-36) IU/L ALT (<35) IU/L Alkaline Phosphatase (38-126) U/L Total Creatine Kinase (30-135) U/L CK-MB (CK-2) (<2.37) ng/mL CK-MB (CK-2) Rel Index (1.5-5.0) % Troponin I (0.01-0.034) ng/mL NT-Pro-B Natriuret Pep (<125) pg/mL Total Protein (6.3-8.2) g/dL Albumin (3.5-5.0) g/dL Globulin (1.7-4.1) g/dL Albumin/Globulin Ratio (1.0-2.8) Lipase (23-300) U/L Chlamy pneumoniae PCR Not detected (Not Detect) Adenovirus (PCR) Not detected (Not Detect) B. pertussis DNA (PCR) Not detected (Not Detecte) B.parapertussis DNA PCR Not detected (Not Detecte) Coronavirus OC43 (PCR) Not detected (Not Detect) Coronavirus HKU1 (PCR) Not detected (Not Detect) Coronavirus 229E (PCR) Not detected (Not Detect) SARS-CoV-2 (PCR) Not detected (Not Detecte) Coronavirus NL63 (PCR) Not detected (Not Detect) Human Metapneumovir PCR Not detected (Not Detect) Influenza Type A (PCR) Not detected (Not Detect) Influenza Type B (PCR) Not detected (Not Detect) M. pneumoniae (PCR) Not detected (Not Detect) Parainfluenza 1 (PCR) Not detected (Not Detect) Parainfluenza 2 (PCR) Not detected (Not Detect) Parainfluenza 3 (PCR) Not detected (Not Detect) Parainfluenza 4 (PCR) Not detected (Not Detect) RSV (PCR) Not detected (Not Detect) Entero/Rhino (PCR) Detected H (Not Detect) 02/13/23 02/13/23 02/13/23 Range/Units 13:25 13:25 16:17 WBC (4.5-11.0) X10^3/uL RBC (4.0-5.2) X10^6/uL Hgb (12.0-16.0) g/dL Hct (36-46) % MCV (80-100) fL MCH (26-34) PG MCHC (30-36) % RDW (11.6-14.8) % Plt Count (150-400) X10^3/uL Neut % (Auto) (50-75) % Lymph % (Auto) (25-40) % [place] % (Auto) (3-14) % Eos % (Auto) (2-4) % Baso % (Auto) (0-2) % Neut # (Auto) (9276-9414) /uL Lymph # (Auto) (7332-8400) /uL [place] # (Auto) (0-900) /uL Eos # (Auto) (0-450) /uL Baso # (Auto) (0-100) /uL PT (10.1-12.7) SECONDS INR (0.9-1.3) APTT (26-36) SECONDS Sodium 137 (137-145) mmol/L Potassium 3.6 (3.4-5.1) mmol/L Chloride 104 (98-107) mmol/L Carbon Dioxide 28 (22-32) mmol/L BUN 10 (7-17) mg/dL Creatinine 0.61 (0.52-1.04) mg/dL Estimated GFR > 60 (>60) mL/min BUN/Creatinine Ratio 16.4 (6-22) Glucose 86 (80-110) mg/dL Calcium 8.7 (8.4-10.2) mg/dL Magnesium 2.0 (1.6-2.3) mg/dL Total Bilirubin 0.4 (0.2-1.3) mg/dL AST 24 (14-36) IU/L ALT 22 (<35) IU/L Alkaline Phosphatase 92 (38-126) U/L Total Creatine Kinase 107 100 (30-135) U/L CK-MB (CK-2) 1.02 TNP (<2.37) ng/mL CK-MB (CK-2) Rel Index 1.0 L TNP (1.5-5.0) % Troponin I < 0.012 < 0.012 (0.01-0.034) ng/mL NT-Pro-B Natriuret Pep 253 H (<125) pg/mL Total Protein 7.1 (6.3-8.2) g/dL Albumin 4.1 (3.5-5.0) g/dL Globulin 3.0 (1.7-4.1) g/dL Albumin/Globulin Ratio 1.4 (1.0-2.8) Lipase 38 (23-300) U/L Chlamy pneumoniae PCR (Not Detect) Adenovirus (PCR) (Not Detect) B. pertussis DNA (PCR) (Not Detecte) B.parapertussis DNA PCR (Not Detecte) Coronavirus OC43 (PCR) (Not Detect) Coronavirus HKU1 (PCR) (Not Detect) Coronavirus 229E (PCR) (Not Detect) SARS-CoV-2 (PCR) (Not Detecte) Coronavirus NL63 (PCR) (Not Detect) Human Metapneumovir PCR (Not Detect) Influenza Type A (PCR) (Not Detect) Influenza Type B (PCR) (Not Detect) M. pneumoniae (PCR) (Not Detect) Parainfluenza 1 (PCR) (Not Detect) Parainfluenza 2 (PCR) (Not Detect) Parainfluenza 3 (PCR) (Not Detect) Parainfluenza 4 (PCR) (Not Detect) RSV (PCR) (Not Detect) Entero/Rhino (PCR) (Not Detect) ECG Data Interpretation: Ronny-EKG 1. Sinus rhythm rate 67 [place] interval 1 6 QRS [address] changes T-wave inversion noted in lead 3 similar to prior EKG 2. Sinus rhythm rate [address] to QRS 6 QTC 473 T-wave inversion noted in lead 3 similar to previous EKG Discharge Plan Departure Patient Disposition: Home Clinical Impression: Shortness of breath Instructions: DI for Asthma -- Adult Activity Restrictions/Additional Instructions: You were evaluated in the ED today for shortness of breath. Your chest x-ray, EKG, labs, ultrasound were normal. Your respiratory panel was positive for the rhino virus/enterovirus which is essentially the cold virus. Your symptoms were likely due to an asthma exacerbation from the cold. Your symptoms improved with prednisone and albuterol treatments. Please continue to take the prednisone for the next 5 days. You may use your albuterol inhaler every 6 hours for wheezing as needed. Please follow-up with your PCP as soon as possible. Return to the ED if you have worsening shortness of breath or chest pain. Prescriptions: New prednisone 50 mg tablet 50 mg PO DAILY 5 Days Qty: 5 0RF No Action losartan 25 mg tablet 25 mg PO DAILY Qty: 90 3RF Rx Instructions: Take one tablet by mouth daily. albuterol sulfate [Ventolin HFA] 90 mcg/actuation HFA aerosol inhaler 2 puff inhalation Q4HR Qty: 18 3RF Qvar RediHaler 40 mcg/actuation HFA aerosol breath activated 2 inh INHALATION BID Qty: 31.8 3RF triamterene-hydrochlorothiazid 37.5-25 mg capsule See Rx Instructions .ROUTE .COMPLEX Qty: 90 3RF Dose Instruction: TAKE 1 CAPSULE DAILY Rx Instructions: TAKE 1 CAPSULE DAILY levothyroxine [Synthroid] 50 mcg tablet See Rx Instructions .ROUTE .COMPLEX Qty: 90 2RF Dose Instruction: TAKE 1 TABLET EVERY MORNING Rx Instructions: TAKE 1 TABLET EVERY MORNING magnesium 200 mg tablet 400 mg PO DAILY multivitamin 1 tab PO DAILY curica 1,405 mg PO DAILY omega 3 1,000 mg PO DAILY probiotic 1 cap PO DAILY potassium 99 mg PO DAILY co q enzyme 100 mg PO DAILY cholecalciferol (vitamin D3) 5,000 unit PO DAILY Referrals: Erica White MD [Primary Care Provider] - Stand Alone Forms: Patient Portal/API <Melany Jefferson DO - Last Filed: 02/16/23 03:43> Cosign ED Attending Kendraature Attestation: I was immediately available in the department for consultation. Documentation has been reviewed.
[2023-02-13 13:35] LABS: Add Manual Diff / Slide Review NO; Basophils Absolute Auto 100 /uL (0-100); Basophils Percent Auto 1.1 % (0-2); Eosinophils Absolute Auto 200 /uL (0-450); Eosinophils Percent Auto 1.9 % (2-4); Hematocrit 38.1 % (36-46); Hemoglobin 13.1 g/dL (12.0-16.0); Lymphocytes Absolute Auto 2700 /uL (1100-4500); Lymphocytes Percent Auto 32.1 % (25-40); Mean Corpuscular HGB Conc 34.3 % (30-36); Mean Corpuscular Hemoglobin 28.7 PG (26-34); Mean Corpuscular Volume 83.6 fL (80-100); Monocytes Absolute Auto 700 /uL (0-900); Monocytes Percent Auto 8.5 % (3-14); Neutrophils Absolute Auto 4800 /uL (1500-7000); Neutrophils Percent Auto 56.4 % (50-75); Platelet Count 287 X10^3/uL (150-400); Red Blood Cell Count 4.55 X10^6/uL (4.0-5.2); White Blood Cell Count 8.5 X10^3/uL (4.5-11.0)
[2023-02-13] MEDS: ALBUTEROL/IPRATROPIUM 3 ML AMPUL INH ×2 (13:41→14:39)
--- NOTE | 2023-02-13 13:44 | DI.US.S_ITS ---
PROCEDURE: US PERIPH VENOUS LOW EXTREM RT INDICATIONS: Leg swelling TECHNIQUE: Real-time imaging, as well as color and pulse Doppler interrogation, were performed of the lower extremity deep veins from the inguinal ligament to the popliteal fossa. COMPARISON: None. FINDINGS: The common femoral, femoral and popliteal veins are normally compressible, and free of intraluminal thrombus. Color and pulse Doppler demonstrate normal phasic intraluminal flow. There is normal augmentation response to distal compression maneuver. No fluid collection in the popliteal fossa. IMPRESSION: No right lower extremity DVT. Dictated by: Elias Cobian M.D. on 02/13/2023 at 15:38 Approved by: Elias Cobian M.D. on 02/13/2023 at 15:39
[2023-02-13 13:46] LABS: PTT Partial Thromboplastin Tim 31 SECONDS (26-36)
[2023-02-13 13:49] LABS: Alanine Aminotransferase 22 IU/L (<35); Albumin 4.1 g/dL (3.5-5.0); Albumin Globulin Ratio 1.4 (1.0-2.8); Alkaline Phosphatase 92 U/L (38-126); Aspartate Aminotransferase 24 IU/L (14-36); BUN Creatinine Ratio 16.4 (6-22); Bilirubin Total 0.4 mg/dL (0.2-1.3); Blood Urea Nitrogen 10 mg/dL (7-17); Calcium 8.7 mg/dL (8.4-10.2); Carbon Dioxide 28 mmol/L (22-32); Chloride 104 mmol/L (98-107); Creatine Kinase 107 U/L (30-135); Estimated Glomerular Filt Rate > 60 mL/min (>60); Glucose 86 mg/dL (80-110); HEMOLYSIS < 15 (0-50); Lipase 38 U/L (23-300); Potassium 3.6 mmol/L (3.4-5.1); Sodium 137 mmol/L (137-145); Total Protein 7.1 g/dL (6.3-8.2)
[2023-02-13] MEDS: predniSONE 20 MG TABLET 60 MG PO (13:57)
[2023-02-13 14:00] LABS: Troponin I < 0.012 ng/mL (0.01-0.034)
[2023-02-13 14:04] LABS: Creatine Kinase MB 1.02 ng/mL (<2.37)
[2023-02-13 14:09] LABS: Adenovirus Not Detected (Not Detect); B. parapertussis Not Detected (Not Detecte); Bordetella pertussis Not Detected (Not Detecte); Chlamydophila pneumoniae Not Detected (Not Detect); Coronavirus 229E Not Detected (Not Detect); Coronavirus HKU1 Not Detected (Not Detect); Coronavirus NL 63 Not Detected (Not Detect); Coronavirus OC43 Not Detected (Not Detect); Human Metapneumovirus Not Detected (Not Detect); Human Rhinovirus/Enterovirus Detected (Not Detect); Influenza A Not Detected (Not Detect); Influenza B Not Detected (Not Detect); Mycoplasma pneumoniae Not Detected (Not Detect); Parainfluenza Virus 1 Not Detected (Not Detect); Parainfluenza Virus 2 Not Detected (Not Detect); Parainfluenza Virus 3 Not Detected (Not Detect); Parainfluenza Virus 4 Not Detected (Not Detect); Respiratory Syncytial Virus Not Detected (Not Detect); SARS- CoV-2 Not Detected (Not Detecte)
[2023-02-13 14:13] LABS: NT-proBNP (BNP-Adult 18+) 253 pg/mL (<125)
[2023-02-13 16:34] LABS: Creatine Kinase 100 U/L (30-135)
[2023-02-13 16:47] LABS: Troponin I < 0.012 ng/mL (0.01-0.034)
== END 2023-02-13 17:20 | disposition home or self-care (01) ==
PROVIDERS: Emergency Provider Student in an Organized Health Care Education/Training Program; PCP Family Medicine
DX: R06.02 Shortness of breath (principal); R07.9 Chest pain, unspecified; R42 Dizziness and giddiness
CPT/HCPCS: 36415; 71045; 80053; 82550; 82553; 83690; 83735; 83880; 84484; 85025; 85610; 85730; 87633; 93005; 93010; 93971; 94640; 99284

== ENCOUNTER → 2023-03-22 11:30 | Outpatient (CLI) | payer BC, SELFPAY ==
[2023-02-03 14:40] VITALS: BMI 49.4
[2023-03-22 12:34] LABS: Cholesterol 212 mg/dL (140-199); HDL Cholesterol 51 mg/dL (40-60); LDL Cholesterol Calculated 137 mg/dL (<100); Triglycerides 118 mg/dL (35-150)
== END ==
PROVIDERS: PCP Family Medicine; Referring Provider Family Medicine; Visit Provider Family Medicine
DX: E78.5 Hyperlipidemia, unspecified (principal)
CPT/HCPCS: 36415; 80061

== ENCOUNTER → 2023-04-27 10:40 | Outpatient (CLI) | payer BC, SELFPAY ==
[2023-02-03 14:40] VITALS: BMI 49.4
--- NOTE | 2023-04-27 10:41 | DI.US.S_ITS ---
PROCEDURE: US EXTREMITY NONVASC LOWER RT INDICATIONS: Mass posterior R knee lateral proximal side - suspect lipoma TECHNIQUE: Real-time scanning was performed of the posterior knee , with image documentation. COMPARISON: None. FINDINGS: Sonographic images posterior to the knee demonstrates no mass lesion, architectural distortion or fluid collection. IMPRESSION: No visualized abnormality at area of concern. If concern persists, MRI is recommended. Dictated by: Brandi Franklin M.D. on 04/27/2023 at 14:44 Approved by: Brandi Franklin M.D. on 04/27/2023 at 14:45
== END ==
PROVIDERS: PCP Family Medicine; Referring Provider Physician Assistant; Visit Provider Physician Assistant
DX: R22.41 Localized swelling, mass and lump, right lower limb (principal)
CPT/HCPCS: 76882

== ENCOUNTER 2023-04-28 06:44 | Day surgery (SDC) | payer BC, SELFPAY ==
[2023-02-03 14:40] VITALS: BMI 49.4
--- NOTE | 2023-04-28 | PATH_ITS ---
[facility] Accession Number: [id number] No. of containers..02 Tissue . 01 Material submitted: . PART A: colon - SIGMOID POLYP PART B: rectum - RECTAL POLYP . 01 Diagnosis: A. Sigmoid Colon Polyp: Hyperplastic polyp. . B. Rectal Polyp: Hyperplastic polyp. MRV 05/04/2023 1241 Local . 01 Electronically signed: . Ziggy Menon MD, PhD, Pathologist NPI- [id number] . 01 Gross description: . Part A: SIGMOID POLYP: Received in formalin is 1 fragment(s) of palmer, soft tissue measuring 0.2 x 0.2 x 0.2 cm submitted entirely in 1 cassette(s) Part B: RECTAL POLYP: Received in formalin is 1 fragment(s) of palmer, soft tissue measuring 0.3 x 0.2 x 0.2 cm submitted entirely in 1 cassette(s) /ERI 05/02/2023 2234 Local . 01 Pathologist provided ICD-10: K63.5, K62.1 . 01 CPT . 224813, 027411 Specimen Comment: A courtesy copy of this report has been sent to [facility] Performed at: 01 [facility] [address] [place] [address] [address], [place], [place] [id number] MD Didier Smith MD Phone: [phone]
[2023-04-28 07:06] VITALS: BP 131/83; PULSE 79; RESP 16; TEMP 36.2; O2SAT 97; BMI 41.3
[2023-04-28] MEDS: LACTATED RINGERS 1,000 ML 125 ML IV (07:17)
--- NOTE | 2023-04-28 07:39 | P.HP_ITS ---
History of Present Illness History of Present Illness Date Patient Seen: 04/28/23 Chief complaint: Colonoscopy Narrative: No changes since seen in office 02/24: positive family history of colon cancer in dad. last c scope about 3 years ago. history of polyps. Ms. El Gibson presents today with some bleeding per rectum.? She had her last colonoscopy in 2019 there were some polyps but she recalls that they were benign.? She does have a family history of colon cancer her father of colon cancer at the age of 78.? She has a known history of hemorrhoids.? She follows a keto diet and feels that she eats a lot of fiber.? Additionally she takes 3 tabs a day of fiber pills.? She does drink a large glass of water with that.? She has bowel movements daily and they passed easily.? Only on occasion will she experienced straining with a bowel movement.? This straining is associated with occasional constipation.? She has not had any bleeding since September or October.? And her symptoms have improved since then.? The last time she had some bleeding she thought it seemed like quite a bit of blood but it was not painful.? Additionally she has an umbilical hernia that seems to be worse since she has had this coughing and asthma and cold for the last 3 weeks. [facility], LAT[facility] Medical History Asthma Benign essential hypertension delivery delivered Essential tremor HTN (hypertension) Hypothyroid Intermittent asthma Kidney stones Palpitations Paroxysmal SVT (supraventricular tachycardia) Seasonal allergies Surgical History Hx of laparoscopic gastric banding (~2004) Hx of lithotripsy S/P excision of lipoma (10/11/16) Status post surgery (07/23/08) Family History Father Malignant neoplasm of colon, unspecified part of colon Family/Other Tremor of unknown origin Mother Hypertension Heart disease Social History marital status: household members: spouse and children occupational status: employed Smoking Status: Never smoker alcohol intake: current substance use type: does not use Meds Home Medications and Allergies Home Medications Medication Instructions Recorded Confirmed Type co q enzyme 100 mg PO DAILY 06/08/18 04/28/23 History curica 1,405 mg PO DAILY 06/08/18 04/28/23 History multivitamin 1 tab PO DAILY 06/08/18 04/28/23 History omega 3 1,000 mg PO DAILY 06/08/18 04/28/23 History potassium 99 mg PO DAILY 06/08/18 04/28/23 History probiotic 1 cap PO DAILY 06/08/18 04/28/23 History magnesium 200 mg tablet 400 mg PO DAILY 11/05/18 04/28/23 History beclomethasone dipropionate 40 2 inh inhalation BID #31.8 grams 03/08/22 04/28/23 Rx mcg/actuation HFA breath activated aerosol (Qvar RediHaler) cholecalciferol (vitamin D3) 5,000 unit PO DAILY 06/15/22 04/28/23 History triamterene 37.5 See Rx Instructions .Route 10/31/22 04/28/23 Rx mg-hydrochlorothiazide 25 mg .COMPLEX #90 caps capsule levothyroxine 50 mcg tablet See Rx Instructions .Route 12/14/22 04/28/23 Rx (Synthroid) .COMPLEX #90 tabs losartan 25 mg tablet See Rx Instructions .Route 04/20/23 04/28/23 Rx .COMPLEX #90 tabs albuterol sulfate 90 mcg/actuation 2 puff inhalation Q4HR PRN Muscle 04/28/23 04/28/23 History aerosol inhaler (Ventolin HFA) Spasm Allergies Allergy/AdvReac Type Severity Reaction Status Date / Time erythromycin base Allergy Mild Rash Verified 04/24/23 09:50 [ERYTHROMYCIN BASE] Exam Vital Signs (past 8 hours): - 04/28/23 07:06 Temperature 97.2 F L Pulse Rate 79 Respiratory Rate 16 Blood Pressure 131/83 Pulse Oximetry 97 Const General: cooperative, healthy appearing and comfortable Nutritional Appearance: obese (BMI 41) HENMT Head: normal to inspection Eyes General: appearance normal, both eyes and all related structures Resp Effort & Inspection: normal respiratory effort and able to speak in complete sentences GI Palpation: soft and No tender Assessment & Plan Assessment and plan (1) Bleeding per rectum: Status: Acute (2) Hemorrhoids: Qualifiers: Hemorrhoid type: unspecified Qualified Code(s): K64.9 - Unspecified hemorrhoids Status: Acute Assessment & Plan narrative: Presents today for screening colonoscopy I discussed the risks benefits and alternatives including but not limited to perforation of the colon and an incomplete exam she fully understands these risks and would like to proceed.
--- NOTE | 2023-04-28 08:16 | P.OP.COLON_ITS ---
Operative Date/Time/Diagnoses Date of procedure: 04/28/23 Time of procedure: 08:16 Pre-op diagnosis: left posterior external hem/skin tag. Prominant internal hemmorhoidsX3. good prep. Procedure & Clinicians Study performed: colonoscopy Same procedure as scheduled: Yes Indications: bleeding per rectum Surgeon: Denisha Malone Procedure Notes Procedure in detail: Patient was taken to the endoscopy suite and placed in a left lateral decubitus position. A time-out was performed. With the help of anesthesiologist conscious sedation was induced and monitored throughout the case. A digital rectal exam was performed and there were no masses or strictures. The external rectal exam revealed a posterior left-sided external hemorrhoid/skin tag. Next, the colonoscope was introduced into the anal canal and advanced through to the cecum. A photograph of the appendiceal orifice was obtained. The bowel prep was excellent [place] bowel prep score of 3. The scope was then withdrawn for a total of 12 minutes and 1 small polyp was seen in the sigmoid colon and removed with the biopsy forceps and sent for pathology. A 2nd small polyp was seen in the rectum, removed with a forceps and sent for pathology. Several diverticula were seen and photographed in the sigmoid colon. The scope was then retroflexed and a photograph of the internal hemorrhoidal piles which were engorged was obtained. Scope withdrawal time: 12 Findings: diverticulitis, internal hemorrhoids and polyp(s) Specimen(s): other (1. Sigmoid polyp 2. Rectal polyp (both small)) Complications: none Post-procedure Recommendations: Colonoscopy in 5 years
[2023-04-28 08:19] VITALS: BP 112/73; PULSE 73; RESP 13; TEMP 36.3; O2SAT 97
[2023-04-28 08:27] VITALS: BP 108/76; PULSE 71; RESP 10; O2SAT 96
[2023-04-28 08:29] VITALS: BP 101/80; PULSE 71; RESP 15; O2SAT 96
[2023-04-28 08:34] VITALS: BP 128/74; PULSE 67; RESP 12; TEMP 36.3; O2SAT 96
== END 2023-04-28 09:03 | disposition home or self-care (01) ==
PROVIDERS: PCP Family Medicine; Referring Provider Surgery; Visit Provider Surgery
PROC: 0DJD8ZZ Inspection of Lower Intestinal Tract, Via Natural or Artificial Opening Endoscopic (ICD-10-PCS; CPT 45378; principal; 2023-04-28 07:45)
DX: D12.8 Benign neoplasm of rectum (principal); D12.5 Benign neoplasm of sigmoid colon; K64.8 Other hemorrhoids; K57.92 Diverticulitis of intestine, part unspecified, without perforation or abscess without bleeding; I10 Essential (primary) hypertension; E03.9 Hypothyroidism, unspecified; J45.20 Mild intermittent asthma, uncomplicated
CPT/HCPCS: 45380; J2704

== ENCOUNTER → 2023-05-19 13:19 | Outpatient (CLI) | payer BC, SELFPAY ==
[2023-02-03 14:40] VITALS: BMI 49.4
--- NOTE | 2023-05-19 13:20 | DI.MRI.S_ITS ---
PROCEDURE: MR KNEE RT WO/W CON INDICATIONS: Mass of Right knee TECHNIQUE: Noncontrast sagittal PD fast spin echo and T2 fast spin echo with fat saturation, sagittal 3-D FLASH with fat saturation; coronal T1 spin echo and PD fast spin echo with fat saturation, and axial T1 spin echo and PD fast spin echo with fat saturation through the knee. Post-contrast axial, coronal, and sagittal T1 spin echo with fat saturation through the knee. COMPARISON: [facility], US, US EXTREMITY NONVASC LOWER RT, 04/27/2023, 11:07. FINDINGS: Image quality: Excellent. Anterior Cruciate Ligament: Intact. Posterior Cruciate Ligament: Intact. Medial Collateral Ligament: Intact. Lateral Collateral Ligament: Intact. Medial Meniscus: There is diffuse degenerative tearing and maceration of the medial meniscus with extrusion of the meniscal body beyond the femorotibial joint line. A lobular parameniscal cyst is seen along the medial tibial gutter measuring approximately 3.0 x 0.8 x 1.5 cm. Additional nonspecific fluid is seen tracking inferiorly from the cyst. Lateral Meniscus: Intrasubstance degeneration without a discrete tear. Medial and Lateral Tendons: The semimembranosus tendon insertions and meniscocapsular junction appear intact. Visualized portions of the pes anserinus tendons appear normal. No abnormal bursal fluid. The long and short heads of the biceps femoris tendon appear intact. The popliteus tendon appears intact. No signs of posterolateral corner injury. Iliotibial band appears normal. Anterior Structures: Patella patrizia. Mild patellar tendinosis. The distal quadriceps tendon is intact. There is mild lateral patellar subluxation. Mild edema is seen at the superolateral aspect of the infrapatellar fat pad. Bones: No acute trabecular bone injury or fracture. Medial Femorotibial Cartilage: Diffuse full-thickness cartilage loss is seen throughout the weight-bearing portion of the medial femorotibial compartment with subchondral cystic changes and subchondral edema as well as marginal osteophyte formation. Lateral Femorotibial Cartilage: High-grade partial-thickness cartilage loss is seen in the central portion of the lateral tibial plateau. Marginal osteophytes are present. Patellofemoral Cartilage: Full-thickness cartilage loss is seen in the patellofemoral compartment at the lateral patellar facet and median ridge as well as the lateral femoral trochlea with subchondral cystic changes and marginal osteophyte formation. Soft Tissues: A small joint effusion is present. Small medial popliteal cyst. The musculature surrounding the knee is normal in bulk. Nonspecific prepatellar subcutaneous soft tissue edema. No enhancing soft tissue mass. Skin marker is seen overlying the distal biceps femoris muscle near the distal myotendinous junction. IMPRESSION: 1. Skin marker is seen at the posterolateral aspect of the thigh overlying the distal biceps femoris tendon near the myotendinous junction. No enhancing soft tissue mass. A mildly prominent fat lobule is seen, and a small benign lipoma is not excluded. 2. Diffuse degenerative tearing and maceration of the medial meniscus with extrusion of the meniscal body. A lobular parameniscal cyst is seen in the medial tibial gutter measuring up to 3.0 cm. 3. Intrasubstance degeneration in the lateral meniscus without a discrete tear. 4. Tricompartmental osteoarthrosis with large areas of full-thickness cartilage loss in the medial femorotibial compartment and the patellofemoral compartment. There is grade 3 chondromalacia in the lateral femorotibial compartment. Tricompartmental marginal osteophytes are present. 5. Patella patrizia and mild patellar tendinosis. Mild edema at the superolateral aspect of the infrapatellar fat pad is nonspecific but can be seen in the setting of lateral femoral condyle-patellar tendon friction syndrome. 6. Small joint effusion. Small medial popliteal cyst. Approved by: Hunter Mauricio M.D. on 05/19/2023 at 21:13
== END ==
PROVIDERS: PCP Family Medicine; Referring Provider Physician Assistant; Visit Provider Physician Assistant
DX: M23.231 Derangement of other medial meniscus due to old tear or injury, right knee (principal); R22.41 Localized swelling, mass and lump, right lower limb; M17.11 Unilateral primary osteoarthritis, right knee; M94.261 Chondromalacia, right knee; M25.461 Effusion, right knee; M71.21 Synovial cyst of popliteal space [Baker], right knee
CPT/HCPCS: 73723; A9579

== ENCOUNTER → 2023-06-27 13:45 | Outpatient (CLI) | payer BC, SELFPAY ==
[2023-02-03 14:40] VITALS: BMI 49.4
--- NOTE | 2023-06-27 | DI.MRI.S_ITS ---
PROCEDURE: MR ANKLE RT WO CON INDICATIONS: Other specified joint disorders, right ankle and f TECHNIQUE: Noncontrast sagittal T1 spin echo and T2 fast spin echo with fat saturation, axial proton density fast spin echo and T2 fast spin echo with fat saturation, coronal T1 spin echo and T2 fast spin echo with fat saturation through the ankle/hindfoot. COMPARISON: [facility], MR, MR ANKLE RT WO CON, 10/03/2019, 20:17. FINDINGS: Image quality: Excellent. Bones and joints: [id number] midfoot and hindfoot joint osteoarthritic changes are seen with joint space narrowing, subchondral sclerosis and dorsal marginal osteophyte formation more notably involving 2nd TMT joint. No acute fracture or dislocation. 4 mm osteochondral injury involving lateral weight-bearing portion of distal tibial plafond is seen. No gross osteochondral injuries of talar dome. No pathologic joint effusions. Well-defined plantar calcaneal enthesophyte is also noted. Medial structures: The posterior tibialis, flexor digitorum longus, and flexor hallucis longus tendons are intact. Small amount of fluid distending posterior tibialis tendon sheath at the level of talonavicular joint is seen. The posterior tibial neurovascular bundle appears normal within the tarsal tunnel, without extrinsic mass effect. The deltoid ligament and spring ligament are mildly thickened. Lateral structures: The anterior talofibular, calcaneofibular, and posterior talofibular ligaments appear attenuated with intrasubstance T2 hyperintense signal. More superiorly, the anterior and posterior tibiofibular ligaments are thickened with intrasubstance T2 hyperintense signal. The tibiofibular syndesmosis is normal in width at 2 mm or less. The peroneus longus and brevis tendons are thickened at the level of mid to distal calcaneus and calcaneocuboid joint. Adjacent bony peroneal tubercle and retrotrochlear prominence are normal in size. The sinus tarsi demonstrates normal fatty signal, without edema, fibrosis, or cyst formation. Visualized sinus tarsi components (cervical ligament, interosseous talocalcaneal ligament, roots of the inferior extensor retinaculum) appear normal. The calcaneonavicular and calcaneocuboid components of the bifurcate ligament appear intact. The dorsal calcaneocuboid ligament appears intact. Anterior structures: The tibialis anterior, extensor hallucis longus, and extensor digitorum longus tendons appear intact. The dorsal talonavicular ligament appears intact. Posterior and plantar structures: Distal Achilles tendon is mildly thickened at its calcaneal insertion with small amount of surrounding edema. Medial and lateral bands of the plantar fascia are mildly thickened at their plantar calcaneal insertion with surrounding edema.. No abductor digiti quinti muscle atrophy to suggest Barron neuropathy. IMPRESSION: 1. [id number] osteoarthritic changes throughout midfoot and hindfoot joints. Suggestion of tiny osteochondral injury involving distal tibial plafond as above. No fracture or dislocation. 2. Low-grade tenosynovitis involving posterior tibialis tendon at the level of talonavicular joint. 3. Low-grade medial ankle ligament sprain. 4. Low to moderate grade sprain/partial-thickness tear involving lateral ankle ligaments. 5. Tendinosis involving peroneus tendons at the level of calcaneocuboid joint. 6. Low-grade distal Achilles tendinosis. No Achilles tendon rupture. 7. Mild plantar fasciitis. Dictated by: Sarbjit Hdz M.D. on 06/27/2023 at 16:41 Approved by: Sarbjit Hdz M.D. on 06/27/2023 at 16:49
== END ==
PROVIDERS: PCP Family Medicine; Referring Provider Orthopaedic Surgery Foot and Ankle Surgery; Visit Provider Orthopaedic Surgery Foot and Ankle Surgery
DX: S93.491A Sprain of other ligament of right ankle, initial encounter (principal); M65.871 Other synovitis and tenosynovitis, right ankle and foot; M72.2 Plantar fascial fibromatosis; M25.871 Other specified joint disorders, right ankle and foot
CPT/HCPCS: 73721

== ENCOUNTER → 2023-07-24 09:57 | Outpatient (CLI) | payer BC, SELFPAY ==
[2023-02-03 14:40] VITALS: BMI 49.4
[2023-07-24 11:44] LABS: Alanine Aminotransferase 19 IU/L (<35); Albumin 4.3 g/dL (3.5-5.0); Albumin Globulin Ratio 1.3 (1.0-2.8); Alkaline Phosphatase 90 U/L (38-126); Aspartate Aminotransferase 22 IU/L (14-36); Bilirubin Total 0.5 mg/dL (0.2-1.3); Blood Urea Nitrogen 20 mg/dL (7-17); Calcium 9.5 mg/dL (8.4-10.2); Carbon Dioxide 27 mmol/L (22-32); Chloride 101 mmol/L (98-107); Cholesterol 187 mg/dL (140-199); Estimated Glomerular Filt Rate > 60 mL/min (>60); Globulin 3.2 g/dL (1.7-4.1); Glucose 92 mg/dL (80-110); HDL Cholesterol 37 mg/dL (40-60); HEMOLYSIS < 15 (0-50); LDL Cholesterol Calculated 128 mg/dL (<100); Potassium 3.8 mmol/L (3.4-5.1); Sodium 136 mmol/L (137-145); Total Protein 7.5 g/dL (6.3-8.2); Triglycerides 109 mg/dL (35-150)
== END ==
PROVIDERS: PCP Family Medicine; Referring Provider Family Medicine; Visit Provider Family Medicine
DX: E03.9 Hypothyroidism, unspecified (principal); I10 Essential (primary) hypertension; E78.5 Hyperlipidemia, unspecified; I47.10 Supraventricular tachycardia, unspecified
CPT/HCPCS: 36415; 80053; 80061

== ENCOUNTER → 2023-08-07 13:09 | Outpatient (CLI) | payer BC, SELFPAY ==
[2023-02-03 14:40] VITALS: BMI 49.4
[2023-08-07 13:49] LABS: Add Manual Diff / Slide Review NO; Basophils Absolute Auto 100 /uL (0-100); Basophils Percent Auto 0.7 % (0-2); Eosinophils Absolute Auto 200 /uL (0-450); Eosinophils Percent Auto 2.1 % (2-4); Hematocrit 42.1 % (36-46); Hemoglobin 14.2 g/dL (12.0-16.0); Lymphocytes Absolute Auto 2900 /uL (1100-4500); Lymphocytes Percent Auto 34.3 % (25-40); Mean Corpuscular HGB Conc 33.7 % (30-36); Mean Corpuscular Hemoglobin 28.8 PG (26-34); Mean Corpuscular Volume 85.4 fL (80-100); Monocytes Absolute Auto 700 /uL (0-900); Monocytes Percent Auto 8.5 % (3-14); Neutrophils Absolute Auto 4500 /uL (1500-7000); Neutrophils Percent Auto 54.4 % (50-75); Platelet Count 268 X10^3/uL (150-400); Red Blood Cell Count 4.93 X10^6/uL (4.0-5.2); Red Cell Distribution Width 13.6 % (11.6-14.8); White Blood Cell Count 8.3 X10^3/uL (4.5-11.0)
[2023-08-07 20:52] LABS: Hemoglobin A1C% w Est Avg Glu 5.4 % (4.0-6.0)
== END ==
PROVIDERS: PCP Family Medicine; Referring Provider Orthopaedic Surgery Foot and Ankle Surgery; Visit Provider Orthopaedic Surgery Foot and Ankle Surgery
DX: M25.562 Pain in left knee (principal); R73.9 Hyperglycemia, unspecified
CPT/HCPCS: 36415; 83036; 85025

== ENCOUNTER 2023-08-17 12:23 | Emergency (ER) | payer BC, SELFPAY ==
[2023-02-03 14:40] VITALS: BMI 49.4
[2023-08-17] VITALS (8 sets, daily range): BP systolic 124–159; BP diastolic 71–85; PULSE 66–92; RESP 18; TEMP 37.2; O2SAT 90–100; BMI 40.6
--- NOTE | 2023-08-17 12:52 | ED_ITS ---
HPI - Back Pain/Injury <Andres Botello PA-C - Last Filed: 08/17/23 15:43> General Chief Complaint: Back Pain/Injury Stated Complaint: 1wk from knee replace/ fell hurt back& knee Time Seen by Provider: 08/17/23 12:36 Source: patient History of Present Illness HPI Narrative: 63-year-old female with past medical history hypothyroidism, hypertension, asthma, essential tremor, paroxysmal SVT, osteoarthritis presents to the ED status post a fall sustained last night. Patient states that she just had a right knee replacement surgery done on 08/10/2023, has been recuperating well, has been able to ambulate with her walker. However, patient suffered a fall at midnight last night on her way to the bathroom. Patient states that she tried to protect her knee, landing on her bottom. Patient states that she has lower back pain that goes all across her lower back. Patient also states that today, while getting into the car to come to the ED, she might have tweaked her right knee and she is anxious 8 have disrupted the knee replacement. Patient denies numbness, tingling, weakness, urinary hesitancy, urinary frequency, urinary incontinence, bowel incontinence. Patient states that she feels very anxious that she she might fall again. Related Data Home Medications Medication Instructions Recorded Confirmed co q enzyme 100 mg PO DAILY 06/08/18 04/28/23 curica 1,405 mg PO DAILY 06/08/18 04/28/23 multivitamin 1 tab PO DAILY 06/08/18 04/28/23 omega 3 1,000 mg PO DAILY 06/08/18 04/28/23 potassium 99 mg PO DAILY 06/08/18 04/28/23 probiotic 1 cap PO DAILY 06/08/18 04/28/23 magnesium 200 mg tablet 400 mg PO DAILY 11/05/18 04/28/23 cholecalciferol (vitamin D3) 5,000 unit PO DAILY 06/15/22 04/28/23 albuterol sulfate 90 mcg/actuation 2 puff inhalation Q4HR PRN Muscle 04/28/23 04/28/23 aerosol inhaler (Ventolin HFA) Spasm Previous Rx's Medication Instructions Recorded beclomethasone dipropionate 40 2 inh inhalation BID #31.8 grams 03/08/22 mcg/actuation HFA breath activated aerosol (Qvar RediHaler) triamterene 37.5 See Rx Instructions .Route 10/31/22 mg-hydrochlorothiazide 25 mg .COMPLEX #90 caps capsule losartan 25 mg tablet See Rx Instructions .Route 04/20/23 .COMPLEX #90 tabs psyllium husk (aspartame) 3.4 See Rx Instructions .Route 04/28/23 gram/5.8 gram oral powder (Fiber .COMPLEX #660 grams (with aspartame)) levothyroxine 50 mcg tablet See Rx Instructions .Route 08/07/23 (Synthroid) .COMPLEX #90 tabs Allergies Allergy/AdvReac Type Severity Reaction Status Date / Time erythromycin base Allergy Mild Rash Verified 04/24/23 09:50 [ERYTHROMYCIN BASE] Review of Systems <Andres Botello PA-C - Last Filed: 08/17/23 15:43> Constitutional Constitutional: Denies chills, Denies fatigue, Denies fever(s), Denies frequent falls, Denies lethargy and Denies weakness Eyes Eyes: Denies change in vision, Denies eye discharge, Denies irritation and Denies loss of vision ENT Ears, Nose, Mouth, and Throat: Denies change in voice, Denies dizziness, Denies neck pain, Denies sore throat and Denies throat swelling Cardiovascular Cardiovascular: Denies chest pain, Denies irregular heart rhythm, Denies lightheadedness, Denies palpitations, Denies dyspnea, Denies dyspnea on exertion and Denies orthopnea Respiratory Respiratory: Denies cough, Denies dyspnea, Denies dyspnea on exertion and Denies wheezing Gastrointestinal Gastrointestinal: Denies abdominal pain, Denies change in bowel habits, Denies diarrhea, Denies nausea and Denies vomiting Musculoskeletal Musculoskeletal: Reports back pain, Denies neck pain and Denies numbness Comments: Lower back pain, right knee pain Integumentary/Breasts Skin/Breast: Denies pruritus, Denies erythema, Denies rash and Denies wounds Neurologic Neurologic: Denies behavioral changes, Denies confusion, Denies dizziness, Denies frequent falls, Denies loss of vision, Denies numbness and Denies weakness Psychiatric Psychiatric: Denies anxiety, Denies behavioral changes, Denies confusion, Denies depression, Denies homicidal ideation and Denies suicidal ideation Endocrine Endocrine: Denies fatigue, Denies flushing and Denies palpitations Hematologic/Lymphatic Hematologic/Lymphatic: Denies easy bruising Allergic/Immunologic Allergic/Immunologic: Denies urticaria, Denies throat swelling and Denies wheezing Patient History <Andres Botello PA-C - Last Filed: 08/17/23 15:43> Medical History delivery delivered Asthma Kidney stones Palpitations Paroxysmal SVT (supraventricular tachycardia) Seasonal allergies HTN (hypertension) Essential tremor Intermittent asthma Benign essential hypertension Hypothyroid Surgical History S/P excision of lipoma (10/11/16) Hx of lithotripsy Hx of laparoscopic gastric banding (~2004) Status post surgery (07/23/08) Family History Father Malignant neoplasm of colon, unspecified part of colon Family/Other Tremor of unknown origin Mother Hypertension Heart disease Social History marital status: household members: spouse and children occupational status: employed Smoking Status: Never smoker alcohol intake: current substance use type: does not use Smoking Status: Never smoker alcohol intake frequency: a few times a month Substance Use Type: does not use Exam <Andres Botello PA-C - Last Filed: 08/17/23 15:43> Narrative Exam Narrative: Const General:?cooperative, healthy appearing and comfortable [facility] Head:?normal to inspection Ears:?hearing grossly normal bilaterally Nose:?external nose normal Face and sinus:?normal facial exam and sinuses nontender Mouth:?oral mucosae normal Throat:?posterior oropharynx normal Eyes General:?appearance normal, both eyes and all related structures Neck Neck:?normal visual inspection and no lymphadenopathy noted Resp Effort & Inspection:?normal respiratory effort Auscultation:?clear to auscultation bilaterally Cardio Rate:?regular rate Rhythm:?regular rhythm Musculoskeletal No midline tenderness to palpation. No para-spinal tenderness to palpation. Right knee with surgical incision that appears to be healing well and postsurgical bruising as expected. No new deformities noted. There is full range of motion. Strength and sensation is intact. Pedal pulses are intact. Patient is neurovascularly intact. Neuro General:?patient alert, patient awake and patient oriented x3 Initial Vital Signs Initial Vital Signs: Vital Signs Pulse Rate 66 08/17/23 12:34 Pulse Oximetry 90 L 08/17/23 12:34 <Melany Jefferson DO - Last Filed: 08/21/23 00:42> Initial Vital Signs Initial Vital Signs: Vital Signs Pulse Rate 66 08/17/23 12:34 Pulse Oximetry 90 L 08/17/23 12:34 Course <Andres Botello PA-C - Last Filed: 08/17/23 15:43> Orders Ordered: Discontinued Medications Lorazepam (Lorazepam 0.5 Mg Tablet) 1 mg PO NOW ONE Stop: 08/17/23 14:36 Last Admin: 08/17/23 14:44 Dose: 1 mg Documented By: OLLIE Vital Signs Vital signs: Vital Signs - 8 hr 08/17/23 12:34 08/17/23 12:35 08/17/23 12:35 Temperature Pulse Rate 66 92 H Respiratory Rate Blood Pressure 159/85 H Pulse Oximetry 90 L 97 Oxygen Delivery Method 08/17/23 12:39 08/17/23 13:00 08/17/23 13:01 Temperature 98.9 F Pulse Rate 82 88 82 Respiratory Rate 18 Blood Pressure 159/85 H Pulse Oximetry 96 99 100 Oxygen Delivery Method Room Air 08/17/23 13:01 08/17/23 13:59 08/17/23 14:00 Temperature Pulse Rate 83 81 Respiratory Rate Blood Pressure 124/71 Pulse Oximetry 98 99 Oxygen Delivery Method 08/17/23 14:30 Temperature Pulse Rate 78 Respiratory Rate Blood Pressure 137/83 Pulse Oximetry 94 Oxygen Delivery Method <Melany Jefferson DO - Last Filed: 08/21/23 00:42> Orders Ordered: Discontinued Medications Lorazepam (Lorazepam 0.5 Mg Tablet) 1 mg PO NOW ONE Stop: 08/17/23 14:36 Last Admin: 08/17/23 14:44 Dose: 1 mg Documented By: OLLIE Vital Signs Vital signs: Vital Signs - 8 hr 08/17/23 12:34 08/17/23 12:35 08/17/23 12:35 Temperature Pulse Rate 66 92 H Respiratory Rate Blood Pressure 159/85 H Pulse Oximetry 90 L 97 Oxygen Delivery Method 08/17/23 12:39 08/17/23 13:00 08/17/23 13:01 Temperature 98.9 F Pulse Rate 82 88 82 Respiratory Rate 18 Blood Pressure 159/85 H Pulse Oximetry 96 99 100 Oxygen Delivery Method Room Air 08/17/23 13:01 08/17/23 13:59 08/17/23 14:00 Temperature Pulse Rate 83 81 Respiratory Rate Blood Pressure 124/71 Pulse Oximetry 98 99 Oxygen Delivery Method 08/17/23 14:30 Temperature Pulse Rate 78 Respiratory Rate Blood Pressure 137/83 Pulse Oximetry 94 Oxygen Delivery Method MDM - Back Pain/Injury <Andres Botello PA-C - Last Filed: 08/17/23 15:43> MDM Narrative Medical decision making narrative: 63-year-old female with past medical history hypothyroidism, hypertension, asthma, essential tremor, paroxysmal SVT, osteoarthritis presents to the ED status post a fall sustained last night. Concern for fracture/dislocation versus musculoskeletal strain/strain versus disruption to recently operated knee joint versus other. Will obtain x-rays, reassess. Patient declines any pain medication, states she does not like the way the opioids have made her feel. Patient was given OxyContin initially which she did not like. Patient has now been prescribed tramadol by her doctor. X-rays without acute findings. The right knee has expected appearance of total right knee arthroplasty with no evidence of hardware failure or loosening. There are no new fractures or dislocations. Patient's symptoms are likely due to a contusion/musculoskeletal sprain/strain. Discussed findings with patient. Counseled patient on fall precautions including having a bedside commode for safety. Patient was also given a dose of Ativan for anxiety in the ED. ED return precautions discussed with patient. Patient verbalized understanding. Medical records reviewed: Yes Discharge Plan Departure Patient Disposition: Home Clinical Impression: Back pain Qualifiers: Back pain location: low back pain Chronicity: acute Back pain laterality: bilateral Sciatica presence: without sciatica Qualified Code(s): M54.50 - Low back pain, unspecified Knee pain Qualifiers: Chronicity: acute Laterality: right Qualified Code(s): M25.561 - Pain in right knee Instructions: DI for Knee Replacement, DI for Low Back Pain, How to Prevent Falls Activity Restrictions/Additional Instructions: You were evaluated in the ED for knee pain and back pain from a fall. The knee x-ray is normal with expected appearance of the knee replacement surgery. There is no evidence of hardware failure or loosening. There are no new fractures or dislocations either. The back and hip x-rays were likewise without any evidence of fractures or dislocations. It appears that you have suffered some contusions and musculoskeletal sprain/strain from the fall. You may continue taking the pain medications that you have already been prescribed. Be aware that tramadol or OxyContin are both opiates which will likely make you sleepy and more susceptible to falls. It is recommended that you have a bedside commode until your knee recovers. You were given some Ativan in the ED today for anxiety. Return to the ED if you have worsening symptoms, numbness, tingling, weakness. Prescriptions: No Action Qvar RediHaler 40 mcg/actuation HFA aerosol breath activated 2 inh INHALATION BID Qty: 31.8 3RF triamterene-hydrochlorothiazid 37.5-25 mg capsule See Rx Instructions .ROUTE .COMPLEX Qty: 90 3RF Dose Instruction: TAKE 1 CAPSULE DAILY Rx Instructions: TAKE 1 CAPSULE DAILY losartan 25 mg tablet See Rx Instructions .ROUTE .COMPLEX Qty: 90 3RF Dose Instruction: TAKE 1 TABLET DAILY (TO REPLACE RECALLED VALSARTAN) Rx Instructions: TAKE 1 TABLET DAILY (TO REPLACE RECALLED VALSARTAN) levothyroxine [Synthroid] 50 mcg tablet See Rx Instructions .ROUTE .COMPLEX Qty: 90 2RF Dose Instruction: TAKE 1 TABLET EVERY MORNING Rx Instructions: TAKE 1 TABLET EVERY MORNING magnesium 200 mg tablet 400 mg PO DAILY multivitamin 1 tab PO DAILY curica 1,405 mg PO DAILY omega 3 1,000 mg PO DAILY probiotic 1 cap PO DAILY potassium 99 mg PO DAILY co q enzyme 100 mg PO DAILY cholecalciferol (vitamin D3) 5,000 unit PO DAILY albuterol sulfate [Ventolin HFA] 90 mcg/actuation HFA aerosol inhaler 2 puff inhalation Q4HR PRN (Reason: Muscle Spasm) Fiber (with aspartame) 3.4 gram/5.8 gram powder See Rx Instructions .ROUTE .COMPLEX Qty: 660 0RF Rx Instructions: Take 1 tbsp with a large glass of water twice daily. This is preventative and will help with hemorrhoids and diverticula. It also prevents the formation of polyps. Referrals: Erica White MD [Primary Care Provider] - Stand Alone Forms: Patient Portal/API ED Sign-out <Melany Jefferson DO - Last Filed: 10/30/23 00:42> Cosign ED Attending Cosignature Attestation: I was immediately available in the department for consultation. Documentation has been reviewed.
--- NOTE | 2023-08-17 13:06 | DI.RAD.S_ITS ---
PROCEDURE: XR KNEE RT 3V INDICATIONS: fall one week post knee replacement TECHNIQUE: 3 views of the knee were acquired. COMPARISON: [facility], CR, XR KNEE LT 3V, 09/15/2021, 13:03. FINDINGS: Bones: Expected appearance of total right knee arthroplasty. No evidence of hardware failure or loosening. No fractures or dislocations. No suspicious bony lesions. Soft tissues: No joint effusion. No suspicious soft tissue calcifications. IMPRESSION: Expected appearance of total right knee arthroplasty. Dictated by: Diego Lazo M.D. on 08/17/2023 at 14:14 Approved by: Diego Lazo M.D. on 08/17/2023 at 14:16
--- NOTE | 2023-08-17 13:07 | DI.RAD.S_ITS ---
PROCEDURE: XR LUMBAR SPINE 2-3V INDICATIONS: fall TECHNIQUE: 3 views of the lumbar spine were acquired. COMPARISON: None. FINDINGS: Bones: 5 [id number] vertebrae are present. There is normal bony alignment. No vertebral body compression fractures. No suspicious bony lesions. Lower lumbar facet arthropathy. Soft tissues: Overlying bowel gas pattern is normal. No suspicious soft tissue calcifications. IMPRESSION: Lower lumbar facet arthropathy. No acute bony abnormality. Dictated by: Diego Lazo M.D. on 08/17/2023 at 14:16 Approved by: Diego Lazo M.D. on 08/17/2023 at 14:17
--- NOTE | 2023-08-17 13:07 | DI.RAD.S_ITS ---
PROCEDURE: XR HIP W PEL IF DONE BILAT 2V INDICATIONS: fall TECHNIQUE: AP pelvis with lateral view(s) of the bilateral hip(s). COMPARISON: None. FINDINGS: Bones: No fractures or dislocations. Pelvic ring appears intact. No suspicious bony lesions. Mild bilateral hip degenerative change. Soft tissues: The visualized bowel gas pattern is normal. No suspicious soft tissue calcifications. IMPRESSION: Mild bilateral hip degenerative change. No evidence acute bony abnormality. If clinical suspicion and/or symptoms persist, further assessment with repeat plain films, or advanced imaging (e.g., CT, MRI, or bone scan) may be helpful for further assessment. Dictated by: Diego Lazo M.D. on 08/17/2023 at 14:13 Approved by: Diego Lazo M.D. on 08/17/2023 at 14:14
--- NOTE | 2023-08-17 13:07 | DI.RAD.S_ITS ---
PROCEDURE: XR SACRUM COCCYX MIN 2V INDICATIONS: fall TECHNIQUE: 3 views of the sacrum and coccyx acquired. COMPARISON: None. FINDINGS: Bones: No fractures or dislocations. No suspicious bony lesions. Soft tissues: Visualized bowel gas pattern is normal. No suspicious soft tissue densities. IMPRESSION: No evidence acute bony abnormality. Dictated by: Diego Lazo M.D. on 08/17/2023 at 14:17 Approved by: Diego Lazo M.D. on 08/17/2023 at 14:25
[2023-08-17] MEDS: LORazepam 0.5 MG TABLET 1 MG PO (14:44)
== END 2023-08-17 14:59 | disposition home or self-care (01) ==
PROVIDERS: Emergency Provider Student in an Organized Health Care Education/Training Program; PCP Family Medicine
DX: M54.50 Low back pain, unspecified (principal); M25.561 Pain in right knee; W18.30XA Fall on same level, unspecified, initial encounter; Z96.651 Presence of right artificial knee joint
CPT/HCPCS: 72100; 72220; 73521; 73562; 99283

== ENCOUNTER 2023-11-14 13:50 | Emergency (ER) | payer BC, SELFPAY ==
[2023-02-03 14:40] VITALS: BMI 49.4
[2023-11-14 14:13] VITALS: BP 137/77; PULSE 77; RESP 16; TEMP 36.6; O2SAT 97; BMI 41.5
--- NOTE | 2023-11-14 14:16 | DI.US.S_ITS ---
PROCEDURE: US PERIPH VENOUS LOW EXTREM LT INDICATIONS: LT LEG SWELLING/WARMTH/PAIN. RT KNEE SURGERY 13 WEEKS AGO. TECHNIQUE: Real-time imaging, as well as color and pulse Doppler interrogation, were performed of the lower extremity deep veins from the inguinal ligament to the popliteal fossa, with documentation of the visualized calf veins. COMPARISON: None. FINDINGS: The common femoral, femoral, popliteal, and the visualized calf veins are normally compressible, and free of intraluminal thrombus. Color and pulse Doppler demonstrate normal phasic intraluminal flow. There is normal augmentation response to distal compression maneuver. IMPRESSION: No findings of lower extremity deep venous thrombosis. Dictated by: Compa Pelletier M.D. on 11/14/2023 at 15:24 Approved by: Compa Pelletier M.D. on 11/14/2023 at 15:24
--- NOTE | 2023-11-14 15:43 | ED.EXTPRO ---
HPI - Extremity Problem <June Garcia PA-C - Last Filed: 11/14/23 15:49> General Chief complaint: Extremity Problem,Nontraumatic Stated complaint: left leg pain Time Seen by Provider: 11/14/23 14:55 History of Present Illness HPI Narrative: Patient is a 63-year-old female who is 13 weeks status post-right knee replacement by Dr. Harkins, presents with 5 days of left knee pain. She denies fever, chills, erythema or warmth of the left knee. She has no history of blood clots, no recent air travel but has been relatively immobile due to being postop, although she reports doing 1 hour physical therapy daily plus riding her recumbent stationary bicycle. No history of gout. Reports had a postop check last week with Dr. Harkins where they reviewed x-rays of the left knee and there is no significant arthritis of the left knee. She does report that her physical therapist had her wear a small lift in the left shoe to accommodate a leg length variation for 5 days, she wonders if this could have precipitated the left knee pain. The pain is along the posterolateral aspect of the left knee. Related Data Home Medications Medication Instructions Recorded Confirmed co q enzyme 100 mg PO DAILY 06/08/18 04/28/23 curica 1,405 mg PO DAILY 06/08/18 04/28/23 multivitamin 1 tab PO DAILY 06/08/18 04/28/23 omega 3 1,000 mg PO DAILY 06/08/18 04/28/23 potassium 99 mg PO DAILY 06/08/18 04/28/23 probiotic 1 cap PO DAILY 06/08/18 04/28/23 magnesium 200 mg tablet 400 mg PO DAILY 11/05/18 04/28/23 cholecalciferol (vitamin D3) 5,000 unit PO DAILY 06/15/22 04/28/23 albuterol sulfate 90 mcg/actuation 2 puff inhalation Q4HR PRN Muscle 04/28/23 04/28/23 aerosol inhaler (Ventolin HFA) Spasm Previous Rx's Medication Instructions Recorded beclomethasone dipropionate 40 2 inh inhalation BID #31.8 grams 03/08/22 mcg/actuation HFA breath activated aerosol (Qvar RediHaler) losartan 25 mg tablet See Rx Instructions .Route 04/20/23 .COMPLEX #90 tabs psyllium husk (aspartame) 3.4 See Rx Instructions .Route 04/28/23 gram/5.8 gram oral powder (Fiber .COMPLEX #660 grams (with aspartame)) levothyroxine 50 mcg tablet See Rx Instructions .Route 08/07/23 (Synthroid) .COMPLEX #90 tabs triamterene 37.5 1 cap PO DAILY #90 caps 09/05/23 mg-hydrochlorothiazide 25 mg capsule Allergies Allergy/AdvReac Type Severity Reaction Status Date / Time erythromycin base Allergy Mild Rash Verified 04/24/23 09:50 [ERYTHROMYCIN BASE] Review of Systems <June Garcia PA-C - Last Filed: 11/14/23 15:49> Review of Systems ROS Unobtainable: All systems reviewed & are unremarkable except as noted in HPI and below Patient History <June Garcia PA-C - Last Filed: 11/14/23 15:49> Medical History delivery delivered Asthma Kidney stones Palpitations Paroxysmal SVT (supraventricular tachycardia) Seasonal allergies HTN (hypertension) Essential tremor Intermittent asthma Benign essential hypertension Hypothyroid Surgical History S/P excision of lipoma (10/11/16) Hx of lithotripsy Hx of laparoscopic gastric banding (~2004) Status post surgery (07/23/08) Family History Father Malignant neoplasm of colon, unspecified part of colon Family/Other Tremor of unknown origin Mother Hypertension Heart disease Social History marital status: household members: spouse and children occupational status: employed Smoking Status: Never smoker alcohol intake: current substance use type: does not use Smoking Status: Never smoker alcohol intake frequency: a few times a month Substance Use Type: does not use Exam <June Garcia PA-C - Last Filed: 11/14/23 15:49> Narrative Exam Narrative: GENERAL: 63 year old patient appears stated age. Well-developed patient, in no acute distress. NEURO: AOx3. HEAD: Atraumatic. Normocephalic. EYES: Pupils equal round and reactive. Extraocular motions intact. No scleral icterus. No injection or drainage. ENT: Nose without bleeding or purulent drainage. Airway patent. NECK: Trachea midline. Non tender RESPIRATORY: No distress or increased work of breathing EXTREMITIES: No edema or joint tenderness over the left knee. No evidence of joint effusion. No edema, erythema or warmth. No ecchymosis. Calf is supple. Focal tenderness over the posterolateral aspect of the left knee. Distal neurovascular exam intact. SKIN: No rash or erythema of visible areas Initial Vital Signs Initial Vital Signs: Vital Signs Temperature 97.8 F 11/14/23 14:13 Pulse Rate 77 11/14/23 14:13 Respiratory Rate 16 11/14/23 14:13 Blood Pressure 137/77 11/14/23 14:13 Pulse Oximetry 97 11/14/23 14:13 Oxygen Delivery Method Room Air 11/14/23 14:13 <Melany Jefferson DO - Last Filed: 11/16/23 06:51> Initial Vital Signs Initial Vital Signs: Vital Signs Temperature 97.8 F 11/14/23 14:13 Pulse Rate 77 11/14/23 14:13 Respiratory Rate 16 11/14/23 14:13 Blood Pressure 137/77 11/14/23 14:13 Pulse Oximetry 97 11/14/23 14:13 Oxygen Delivery Method Room Air 11/14/23 14:13 Course <June Garcia PA-C - Last Filed: 11/14/23 15:49> Orders Ordered: ED Orders 11/14/23 14:16 US periph venous low extrem lt Stat Vital Signs Vital signs: Vital Signs - 8 hr 11/14/23 14:13 Temperature 97.8 F Pulse Rate 77 Respiratory Rate 16 Blood Pressure 137/77 Pulse Oximetry 97 Oxygen Delivery Method Room Air <DO Oziel Prabhakar Last Filed: 11/16/23 06:51> Orders Ordered: ED Orders 11/14/23 14:16 US periph venous low extrem lt Stat Vital Signs Vital signs: Vital Signs - 8 hr 11/14/23 14:13 Temperature 97.8 F Pulse Rate 77 Respiratory Rate 16 Blood Pressure 137/77 Pulse Oximetry 97 Oxygen Delivery Method Room Air MDM - Extremity (Nontraumatic) <June Garcia PA-C - Last Filed: 11/14/23 15:49> [facility] Narrative Medical decision making narrative: Multiple etiologies for patient's symptoms considered including, but not limited to: DVT, osteoarthritis, septic joint, gout, ligamentous strain Lower extremity venous ultrasound study negative for DVT. No evidence of infectious process such as septic joint. No history of gout. Suspect ligamentous strain, possibly secondary to increased workload on the left leg while recuperating from the right knee replacement or from having a small lift in the shoe which may have altered the biomechanics and put strain on the left knee. I advised patient to continue rest, ice, elevation, compression. Patient recently finished taking a lot of NSAIDs after her knee replacement and prefers not to take any new medications. Encouraged her to continue with her exercises, as immobilization will generally worsen pain. Advised to follow up with Dr. Harkins to investigate further imaging or intervention. Patient states understanding. Patient's symptoms improved over duration of stay with above-stated therapies. Findings and discharge diagnosis discussed with patient/family followed by verbalization of understanding Return precautions discussed with patient/family whom verbalize understanding of diagnosis and plan Discharge Plan Departure Patient Disposition: Home Clinical Impression: Pain in left leg Instructions: How To Perform RICE (Rest, Ice, Compress, Elevate) Activity Restrictions/Additional Instructions: * there is no evidence of deep vein thrombosis on ultrasound today in your left leg, which is great news! I would recommend that you continue to use ice, rest and elevation and contact your orthopedic surgeon about your left knee pain. They may want to order an MRI to obtain further information about the source of your pain. *What to do: *Please continue to take your regular medications as directed. [ ] New medication prescriptions sent to your pharmacy: [ ] [ ] New medication written as a paper prescription [x] No new medications given *Please follow up with your primary care provider in 2-3 days, call for an appointment. Let them know you were seen in the Emergency Department and that we ask that you be seen in follow up. We will electronically transmit a record of today's note if your PCP is in our system *If you do not have a primary care provider please contact the [facility] Resource line at [phone]. They will ask some questions about your medical history and help get you set up with a doctor in the community. *Return to Emergency Department if you should have any new, worsening or concerning symptoms, such as [fever greater than 101 F, shaking chills, worsening pain, persistent vomiting or other concerning symptoms]. Prescriptions: No Action Qvar RediHaler 40 mcg/actuation HFA aerosol breath activated 2 inh INHALATION BID Qty: 31.8 3RF losartan 25 mg tablet See Rx Instructions .ROUTE .COMPLEX Qty: 90 3RF Dose Instruction: TAKE 1 TABLET DAILY (TO REPLACE RECALLED VALSARTAN) Rx Instructions: TAKE 1 TABLET DAILY (TO REPLACE RECALLED VALSARTAN) levothyroxine [Synthroid] 50 mcg tablet See Rx Instructions .ROUTE .COMPLEX Qty: 90 2RF Dose Instruction: TAKE 1 TABLET EVERY MORNING Rx Instructions: TAKE 1 TABLET EVERY MORNING triamterene-hydrochlorothiazid 37.5-25 mg capsule 1 cap PO DAILY Qty: 90 3RF magnesium 200 mg tablet 400 mg PO DAILY multivitamin 1 tab PO DAILY curica 1,405 mg PO DAILY omega 3 1,000 mg PO DAILY probiotic 1 cap PO DAILY potassium 99 mg PO DAILY co q enzyme 100 mg PO DAILY cholecalciferol (vitamin D3) 5,000 unit PO DAILY albuterol sulfate [Ventolin HFA] 90 mcg/actuation HFA aerosol inhaler 2 puff inhalation Q4HR PRN (Reason: Muscle Spasm) Fiber (with aspartame) 3.4 gram/5.8 gram powder See Rx Instructions .ROUTE .COMPLEX Qty: 660 0RF Rx Instructions: Take 1 tbsp with a large glass of water twice daily. This is preventative and will help with hemorrhoids and diverticula. It also prevents the formation of polyps. Referrals: Erica White MD [Primary Care Provider] - Stand Alone Forms: Patient Portal/API ED Sign-out <Melany Jefferson DO - Last Filed: 11/16/23 06:51> Cosign ED Attending Kendraature Attestation: I was available for consultation.
[2023-11-14 15:44] VITALS: BP 128/74; PULSE 74; RESP 16; O2SAT 97
== END 2023-11-14 15:44 | disposition home or self-care (01) ==
PROVIDERS: Emergency Provider Physician Assistant; PCP Family Medicine
DX: M79.605 Pain in left leg (principal)
CPT/HCPCS: 93971; 99283

== ENCOUNTER → 2023-12-23 10:06 | Outpatient (CLI) | payer BC, SELFPAY ==
[2023-02-03 14:40] VITALS: BMI 49.4
--- NOTE | 2023-12-23 10:08 | DI.MRI.S_ITS ---
PROCEDURE: MR KNEE LT WO CON INDICATIONS: pain TECHNIQUE: Noncontrast sagittal PD fast spin echo and T2 fast spin echo with fat saturation, sagittal 3-D FLASH with fat saturation; coronal T1 spin echo and PD fast spin echo with fat saturation, and axial PD fast spin echo with fat saturation through the knee. COMPARISON: [facility], MR, KNEE WITHOUT CONTRAST, 07/25/2017, 8:26. FINDINGS: Image quality: Excellent. Menisci: Medial extrusion of the medial meniscus is present. There is radial tearing of the posterior horn medial meniscus at the meniscal root ligament insertion site. Linear oblique high T2 signal intensity traverses the inner, middle, and peripheral thirds of the medial meniscal body and posterior horn, demonstrating inferior articular surface extension. There is linear horizontal high T2 signal intensity traversing the lateral meniscal body involving the inner, middle, and peripheral thirds, demonstrating free edge extension, indicating horizontal tearing. Radial tearing of the inferior aspect of the posterior horn lateral meniscus. Cruciate ligaments: The anterior and posterior cruciate ligaments appear intact. Medial structures: Moderate grade tearing of the mid/inferior aspect of the medial collateral ligament which demonstrates mild surrounding T2 signal elevation. Visualized portions of the pes anserinus tendons appear normal. Moderate T2 signal elevation within and adjacent to the tibial insertion site of the semimembranosus. Small amount of fluid signal intensity within the distal semimembranosus tendon. No abnormal bursal fluid. Lateral structures: The lateral collateral ligament, long and short heads of the biceps femoris tendon appear intact. The popliteus tendon appears normal. Iliotibial band appears normal. Anterior structures: The quadriceps and patellar tendons appear intact. Mild T2 signal elevation within the quadriceps and patellar tendons at the patellar insertion sites. Patellar alignment is normal. No femoral trochlear dysplasia or ventral trochlear prominence. No edema in the infrapatellar fat pad. Bones and cartilage: No bone marrow contusions or fractures. There is moderate tricompartmental periarticular osteophyte formation. Severe articular cartilage loss diffusely overlies the weight-bearing aspects of the medial femoral condyle and medial tibial plateau. Severe articular cartilage loss overlies the lateral patellar facet and lateral femoral trochlea. Joint space: There is a small knee joint effusion and a small Polk's cyst. Normal appearing synovial plicae are incidentally noted. IMPRESSION: 1. Tricompartmental osteoarthritis with associated articular cartilage loss. 2. Progressive tearing of the medial and lateral menisci. 3. Quadriceps and patellar tendinopathy. 4. Partial-thickness medial collateral ligament tear. 5. Knee joint effusion and Polk's cyst. 6. Partial-thickness tearing of the semimembranosus. Dictated by: Compa Pelletier M.D. on 12/25/2023 at 9:23 Approved by: Compa Pelletier M.D. on 12/25/2023 at 9:32
== END ==
LOC: MRI 10:07
PROVIDERS: PCP Family Medicine; Referring Provider Family Medicine; Visit Provider Family Medicine
DX: S83.242A Other tear of medial meniscus, current injury, left knee, initial encounter (principal); S83.282A Other tear of lateral meniscus, current injury, left knee, initial encounter; S83.412A Sprain of medial collateral ligament of left knee, initial encounter; S76.812A Strain of other specified muscles, fascia and tendons at thigh level, left thigh, initial encounter; M17.12 Unilateral primary osteoarthritis, left knee; M25.462 Effusion, left knee; M71.22 Synovial cyst of popliteal space [Baker], left knee; M25.562 Pain in left knee
CPT/HCPCS: 73721

== ENCOUNTER → 2024-01-04 11:45 | Outpatient (CLI) | payer BC, SELFPAY ==
[2023-02-03 14:40] VITALS: BMI 49.4
--- NOTE | 2024-01-04 11:46 | DI.MG.S_ITS ---
BILATERAL DIGITAL SCREENING MAMMOGRAM 3D/2D WITH CAD: 01/04/2024 CLINICAL: Routine screening. Comparison is made to exams dated: 05/24/2022 mammogram, 06/11/2020 mammogram, and 06/10/2019 mammogram - [facility]. There are scattered areas of fibroglandular density in both breasts (category b / 25%-50% glandular tissue). Current study was also evaluated with a Computer Aided Detection (CAD) system. No significant masses, calcifications, or other findings are seen in either breast. There has been no significant interval change. IMPRESSION: NEGATIVE There is no mammographic evidence of malignancy. A 1 year screening mammogram is recommended. Based on the Tyrer Cuzick model (a risk assessment model) the patient's lifetime risk is 9.8% and her 10 year risk is 4.4%. According to the ACR, ACS, and NCCN guidelines, an annual breast MRI exam along with mammogram is recommended if the patient's lifetime risk is 20% or greater. This exam was interpreted at Station ID: [id number]. NOTE: For mammograms, a report in lay terms will be sent to the patient. Approximately 15% of breast malignancies will not be visualized mammographically. In the management of a palpable breast mass, a negative mammogram must not discourage biopsy of a clinically suspicious lesion. Electronically Signed By: Nilam Hernández M.D., PH.D gaurav/jose manuel:01/04/2024 12:43:29 letter sent: Normal Exam ACR BI-RADS Category 1: Negative [id number]
== END ==
PROVIDERS: PCP Family Medicine; Referring Provider Family Medicine; Visit Provider Family Medicine
DX: Z12.31 Encounter for screening mammogram for malignant neoplasm of breast (principal); R92.323 Mammographic fibroglandular density, bilateral breasts
CPT/HCPCS: 77063; 77067

== ENCOUNTER → 2024-02-12 11:28 | Outpatient (CLI) | payer BC, SELFPAY ==
[2023-02-03 14:40] VITALS: BMI 49.4
[2024-02-12 13:21] LABS: Cholesterol 209 mg/dL (140-199); HDL Cholesterol 53 mg/dL (40-60); LDL Cholesterol Calculated 133 mg/dL (<100); Triglycerides 116 mg/dL (35-150)
[2024-02-12 13:47] LABS: TSH w/ Reflex to FT4 1.73 uIU/mL (0.47-4.68)
== END ==
PROVIDERS: PCP Family Medicine; Referring Provider Family Medicine; Visit Provider Family Medicine
DX: E03.9 Hypothyroidism, unspecified (principal); E78.5 Hyperlipidemia, unspecified
CPT/HCPCS: 36415; 80061; 84443

== ENCOUNTER → 2024-03-12 10:24 | Outpatient (CLI) | payer BC, SELFPAY ==
[2023-02-03 14:40] VITALS: BMI 49.4
--- NOTE | 2024-03-12 10:25 | DI.RAD.S_ITS ---
PROCEDURE: XR ABDOMEN 1V INDICATIONS: constipation, assess stool burden TECHNIQUE: One view of the abdomen acquired. COMPARISON: [facility], , XR ABDOMEN 1V, 11/09/2018, 13:08. FINDINGS: Surgical changes and devices: None. Bowel: Moderate fecal debris throughout the colon without obstruction Soft tissues: No suspicious abdominal calcifications. Visualized solid organ contours appear normal in size. Gastric lap band port noted Bones: No suspicious bony lesions. IMPRESSION: Moderate fecal debris throughout the colon without obstruction Approved by: Mustapha Hays M.D. on 03/12/2024 at 17:47
== END ==
PROVIDERS: PCP Family Medicine; Referring Provider Family Medicine; Visit Provider Family Medicine
DX: K59.00 Constipation, unspecified (principal)
CPT/HCPCS: 74018

== ENCOUNTER → 2024-04-03 11:55 | Outpatient (CLI) | payer BC, SELFPAY ==
[2023-02-03 14:40] VITALS: BMI 49.4
[2024-04-03 13:54] LABS: Add Manual Diff / Slide Review NO; Basophils Absolute Auto 100 /uL (0-100); Basophils Percent Auto 0.9 % (0-2); Eosinophils Absolute Auto 100 /uL (0-450); Eosinophils Percent Auto 1.8 % (2-4); Hemoglobin 13.7 g/dL (12.0-16.0); Lymphocytes Absolute Auto 2100 /uL (1100-4500); Lymphocytes Percent Auto 36.2 % (25-40); Mean Corpuscular HGB Conc 34.2 % (30-36); Mean Corpuscular Hemoglobin 29.1 PG (26-34); Monocytes Absolute Auto 600 /uL (0-900); Monocytes Percent Auto 9.9 % (3-14); Neutrophils Absolute Auto 3000 /uL (1500-7000); Neutrophils Percent Auto 51.2 % (50-75); Platelet Count 323 X10^3/uL (150-400); Red Cell Distribution Width 13.5 % (11.6-14.8); White Blood Cell Count 5.9 X10^3/uL (4.5-11.0)
[2024-04-03 14:15] LABS: Erythrocyte Sedimentation Rate 7 MM/HR (0-20)
[2024-04-03 14:57] LABS: C-Reactive Protein Quant 0.7 mg/dL (<1.0)
== END ==
PROVIDERS: PCP Family Medicine; Referring Provider Family Medicine; Visit Provider Family Medicine
DX: K62.5 Hemorrhage of anus and rectum (principal); R19.7 Diarrhea, unspecified; K52.9 Noninfective gastroenteritis and colitis, unspecified
CPT/HCPCS: 36415; 85025; 85651; 86140

== ENCOUNTER → 2024-06-14 11:24 | Outpatient (CLI) | payer BC, SELFPAY ==
[2023-02-03 14:40] VITALS: BMI 49.4
[2024-06-14 12:19] LABS: Add Manual Diff / Slide Review NO; Basophils Absolute Auto 100 /uL (0-100); Basophils Percent Auto 0.9 % (0-2); Eosinophils Absolute Auto 100 /uL (0-450); Eosinophils Percent Auto 1.4 % (2-4); Lymphocytes Absolute Auto 2200 /uL (1100-4500); Lymphocytes Percent Auto 29.8 % (25-40); Mean Corpuscular HGB Conc 34.8 % (30-36); Mean Corpuscular Hemoglobin 29.4 PG (26-34); Mean Corpuscular Volume 84.6 fL (80-100); Monocytes Absolute Auto 800 /uL (0-900); Monocytes Percent Auto 10.4 % (3-14); Neutrophils Absolute Auto 4200 /uL (1500-7000); Neutrophils Percent Auto 57.5 % (50-75); Platelet Count 313 X10^3/uL (150-400); Red Blood Cell Count 5.08 X10^6/uL (4.0-5.2); Red Cell Distribution Width 13.4 % (11.6-14.8); White Blood Cell Count 7.3 X10^3/uL (4.5-11.0)
[2024-06-14 12:23] LABS: BUN Creatinine Ratio 13.6 (6-22); Blood Urea Nitrogen 9 mg/dL (7-17); Calcium 9.2 mg/dL (8.4-10.2); Carbon Dioxide 26 mmol/L (22-32); Chloride 98 mmol/L (98-107); Estimated Glomerular Filt Rate > 60 mL/min (>60); Glucose 86 mg/dL (80-110); HEMOLYSIS < 15 (0-50); Potassium 3.9 mmol/L (3.4-5.1); Sodium 134 mmol/L (137-145)
== END ==
PROVIDERS: PCP Family Medicine; Referring Provider Orthopaedic Surgery Foot and Ankle Surgery; Visit Provider Orthopaedic Surgery Foot and Ankle Surgery
DX: Z01.812 Encounter for preprocedural laboratory examination (principal)
CPT/HCPCS: 36415; 80048; 85025

== ENCOUNTER 2024-06-16 16:15 | Emergency (ER) | payer BC, SELFPAY ==
[2023-02-03 14:40] VITALS: BMI 49.4
[2024-06-16 16:21] VITALS: BP 149/82; PULSE 72; RESP 16; TEMP 36.2; O2SAT 100; BMI 41.0
--- NOTE | 2024-06-16 16:26 | ED_ITS ---
HPI - Extremity Injury (Lower) <Kenneth Dhillon PA-C - Last Filed: 06/16/24 17:37> General Chief Complaint: Extremity Injury, Lower Stated Complaint: rt ft px Time Seen by Provider: 06/16/24 16:26 History of Present Illness HPI Narrative: This is a 64-year-old female presents to the emergency department due to left foot pain onset 2 weeks ago. She states that she was hiking 2 weeks ago and soon after noticed some pain. She was not recall any acute accident or injury to the foot other than that. She states that she had a knee replacement of the right side about 8 months ago and that she has been walking somewhat awkwardly which she thinks may have stressed the left foot. Denies any numbness. No pain to the ankle, knee, or hip of the left side. Related Data Home Medications Medication Instructions Recorded Confirmed curica 1,405 mg PO DAILY 06/08/18 03/12/24 multivitamin 1 tab PO DAILY 06/08/18 03/12/24 omega 3 1,000 mg PO DAILY 06/08/18 03/12/24 probiotic 1 cap PO DAILY 06/08/18 03/12/24 magnesium 200 mg tablet 400 mg PO DAILY 11/05/18 03/12/24 cholecalciferol (vitamin D3) 5,000 unit PO DAILY 06/15/22 03/12/24 Previous Rx's Medication Instructions Recorded losartan 25 mg tablet See Rx Instructions .Route 04/20/23 .COMPLEX #90 tabs psyllium husk (aspartame) 3.4 See Rx Instructions .Route 04/28/23 gram/5.8 gram oral powder (Fiber .COMPLEX #660 grams (with aspartame)) triamterene 37.5 1 cap PO DAILY #90 caps 09/05/23 mg-hydrochlorothiazide 25 mg capsule levothyroxine 50 mcg tablet 50 mcg PO QAM #90 tabs 01/08/24 (Synthroid) beclomethasone dipropionate 40 2 inh inhalation BID #31.8 grams 03/13/24 mcg/actuation HFA breath activated aerosol (Qvar RediHaler) albuterol sulfate 90 mcg/actuation 2 puff inhalation Q4HR PRN 03/19/24 aerosol inhaler (Ventolin HFA) bronchospasm #8.5 grams budesonide 90 mcg/actuation breath 1 inh inhalation BID #1 ea 04/01/24 activated powder inhaler (Pulmicort Flexhaler) Allergies Allergy/AdvReac Type Severity Reaction Status Date / Time erythromycin base AdvReac Mild Rash Verified 06/16/24 16:21 [ERYTHROMYCIN BASE] Review of Systems <Kenneth Dhillon PA-C - Last Filed: 06/16/24 17:37> Review of Systems Narrative: GENERAL: Denies chills, fatigue, malaise, fever, sweats. HEENT: Denies sinus pain, ear pain, sore throat, difficulty swallowing, dizziness. RESPIRATORY: Denies dyspnea, cough, wheezing, hemoptysis, sputum. CARDIOVASCULAR: Denies chest pain, palpitations, orthopnea, edema, GASTROINTESTINAL: Denies nausea, vomiting, abdominal pain, diarrhea, constipation, melena. : Denies dysuria, frequency, incontinence, hematuria, urinary retention. MUSCULOSKELETAL: Reports left foot pain denies weakness, joint pain, or bony pain SKIN: Denies rash, skin lesions, or other NEUROLOGIC: Denies weakness, headache, numbness, change in speech, confusion, seizures, incoordination. PSYCHIATRIC: No concerning psychosocial issues. 12 point review of systems is negative except for those stated above Patient History <Kenneth Dhillon PA-C - Last Filed: 06/16/24 17:37> Medical History delivery delivered Asthma Kidney stones Palpitations Paroxysmal SVT (supraventricular tachycardia) Seasonal allergies HTN (hypertension) Essential tremor Intermittent asthma Benign essential hypertension Hypothyroid Surgical History S/P excision of lipoma (10/11/16) Hx of lithotripsy Hx of laparoscopic gastric banding (~2004) Status post surgery (07/23/08) Family History Father Malignant neoplasm of colon, unspecified part of colon Family/Other Tremor of unknown origin Mother Hypertension Heart disease Social History marital status: household members: spouse and children occupational status: employed Smoking Status: Never smoker alcohol intake: current substance use type: does not use Smoking Status: Never smoker alcohol intake frequency: a few times a month Substance Use Type: does not use Exam <Kenneth Dhillon PA-C - Last Filed: 06/16/24 17:37> Narrative Exam Narrative: GENERAL: Well-developed patient, in mild distress. HEAD: Atraumatic. Normocephalic. EYES: Pupils equal round and reactive. Extraocular motions intact. No scleral icterus. No injection or drainage. ENT: Nose without bleeding, purulent drainage. Throat without erythema, tonsillar hypertrophy or exudate. Airway patent. NECK: Trachea midline. Non tender EXTREMITIES: Mild tenderness to palpation to the distal metatarsals of digits 2 3 and 4. Neurovascularly intact throughout. NEURO: AOx3. SKIN: No rash or erythema of visible areas Initial Vital Signs Initial Vital Signs: Vital Signs Temperature 97.1 F L 06/16/24 16:21 Pulse Rate 72 06/16/24 16:21 Respiratory Rate 16 06/16/24 16:21 Blood Pressure 149/82 H 06/16/24 16:21 Pulse Oximetry 100 06/16/24 16:21 Oxygen Delivery Method Room Air 06/16/24 16:21 <Nena Coon MD - Last Filed: 06/16/24 18:40> Initial Vital Signs Initial Vital Signs: Vital Signs Temperature 97.1 F L 06/16/24 16:21 Pulse Rate 72 06/16/24 16:21 Respiratory Rate 16 06/16/24 16:21 Blood Pressure 149/82 H 06/16/24 16:21 Pulse Oximetry 100 06/16/24 16:21 Oxygen Delivery Method Room Air 06/16/24 16:21 Course <Kenneth Dhillon PA-C - Last Filed: 06/16/24 17:37> Orders Ordered: ED Orders 06/16/24 16:24 XR foot LT min 3V Stat Vital Signs Vital signs: Vital Signs - 8 hr 06/16/24 16:21 06/16/24 17:46 Temperature 97.1 F L Pulse Rate 72 67 Respiratory Rate 16 16 Blood Pressure 149/82 H 142/86 H Pulse Oximetry 100 96 Oxygen Delivery Method Room Air Room Air <Nena Coon MD - Last Filed: 06/16/24 18:40> Orders Ordered: ED Orders 06/16/24 16:24 XR foot LT min 3V Stat Vital Signs Vital signs: Vital Signs - 8 hr 06/16/24 16:21 06/16/24 17:46 Temperature 97.1 F L Pulse Rate 72 67 Respiratory Rate 16 16 Blood Pressure 149/82 H 142/86 H Pulse Oximetry 100 96 Oxygen Delivery Method Room Air Room Air MDM - Extremity Injury (Lower) <Kenneth Dhillon PA-C - Last Filed: 06/16/24 17:37> Imaging Data Extremity x-ray #1: Radiologist's Impression: [address] [address] XRay Report Signed Patient: Kiersten Gannon MR#: [id number] : 1960 Acct:[id number] Age/Sex: 64 / F Date of Service: 06/16/24 Loc: ED Accession Number: [id number] Procedure: XR foot LT min 3V Ordering Provider: Kenneth Dhillon PA-C PROCEDURE: XR FOOT LT MIN 3V INDICATIONS: pain, swelling TECHNIQUE: 3 views of the foot were acquired. COMPARISON: None. FINDINGS: Bones: No fractures or dislocations. No suspicious bony lesions. Plantar calcaneal enthesophyte. Soft tissues: No tibiotalar joint effusion. Achilles tendon appears normal. IMPRESSION: No acute bony abnormality. Dictated by: Mansoor Parmar M.D. on 06/16/2024 at 17:14 Approved by: Mansoor Parmar M.D. on 06/16/2024 at 17:14 [facility] Narrative Medical decision making narrative: ED course: This is a 64-year-old female presents to the emergency department due to a left foot sprain. X-ray negative for any fractures or other bony abnormalities. Neurovascularly intact throughout. Recommended hard sole shoe the patient was look into buying from an outside source. Recommended ibuprofen, rest, ice elevation. Patient was following up with her orthopedic surgeon regarding possible knee replacement in the future and will speak about the foot as well. CC: Left foot pain Complicating co-morbidities: None Data collected from: Previous notes Medical records reviewed: Patient was last seen in the emergency department 7 months ago due to thorough extremity pain. Had a knee replacement on the right side with Dr. Harkins about 8 months ago. Was instructed to wear a small left in her left shoe to accommodate for the leg length variation. Ultrasound was negative for DVT. Differential considered, but not limited to: Fracture, sprain, neurovascular injury Exam documented above, pertinent findings include: Tenderness to palpation to the distal metatarsals, neurovascularly intact Lab Test results independently reviewed as above. Pertinent findings: None obtained Imaging studies independently reviewed: Left foot x-ray negative Scores Used: None MIPS Elements: None Consultations: None Treatments: None Re-evaluations: None Discussion: Discussed plan with the patient was comfortable with the plan Diagnosis: Left foot sprain Disposition: see below, along with detailed discharge instructions that have been reviewed with patient as well as indications for ED re-evaluation and additional outpatient follow up Discharge Plan Departure Patient Disposition: Home Clinical Impression: Sprain of left foot Activity Restrictions/Additional Instructions: Thank you for coming to the [facility] Emergency Department today. As we discussed the x-ray of the foot shows no fractures or other bony abn ormalities. I suspect this is a sprain that should improve with plenty of rest, ibuprofen, and elevation. Please return to the emergency department if you develop any severe new or worsening pain, numbness, or any other concerning signs or symptoms. I hope you feel better soon. Please follow up with your primary care provider within a week if your symptoms continue. If you do not have a primary care provider please contact the [facility] Resource line at [phone]. They will ask some questions about your medical history and help you get set up with a provider in the community. Prescriptions: No Action losartan 25 mg tablet See Rx Instructions .ROUTE .COMPLEX Qty: 90 3RF Dose Instruction: TAKE 1 TABLET DAILY (TO REPLACE RECALLED VALSARTAN) Rx Instructions: TAKE 1 TABLET DAILY (TO REPLACE RECALLED VALSARTAN) triamterene-hydrochlorothiazid 37.5-25 mg capsule 1 cap PO DAILY Qty: 90 3RF levothyroxine [Synthroid] 50 mcg tablet 50 mcg PO QAM Qty: 90 2RF Qvar RediHaler 40 mcg/actuation HFA aerosol breath activated 2 inh INHALATION BID Qty: 31.8 3RF albuterol sulfate [Ventolin HFA] 90 mcg/actuation HFA aerosol inhaler 2 puff inhalation Q4HR PRN (Reason: bronchospasm) Qty: 8.5 3RF Pulmicort Flexhaler 90 mcg/actuation aerosol powdr breath activated 1 inh inhalation BID Qty: 1 3RF magnesium 200 mg tablet 400 mg PO DAILY multivitamin 1 tab PO DAILY curica 1,405 mg PO DAILY omega 3 1,000 mg PO DAILY probiotic 1 cap PO DAILY cholecalciferol (vitamin D3) 5,000 unit PO DAILY Fiber (with aspartame) 3.4 gram/5.8 gram powder See Rx Instructions .ROUTE .COMPLEX Qty: 660 0RF Rx Instructions: Take 1 tbsp with a large glass of water twice daily. This is preventative and will help with hemorrhoids and diverticula. It also prevents the formation of polyps. Referrals: Erica White MD [Primary Care Provider] - Stand Alone Forms: Patient Portal/API ED Sign-out <Nena Coon MD - Last Filed: 06/16/24 18:40> Cosign ED Attending Cosignature Attestation: I was immediately available in the department for consultation throughout this patient's visit. Nena Coon MD
[2024-06-16 17:46] VITALS: BP 142/86; PULSE 67; RESP 16; O2SAT 96
== END 2024-06-16 17:48 | disposition home or self-care (01) ==
PROVIDERS: Emergency Provider Physician Assistant Medical; PCP Family Medicine
DX: S93.602A Unspecified sprain of left foot, initial encounter (principal)
CPT/HCPCS: 73630; 99283

== ENCOUNTER → 2024-06-25 16:47 | Outpatient (CLI) | payer BC, SELFPAY ==
[2023-02-03 14:40] VITALS: BMI 49.4
--- NOTE | 2024-06-25 16:48 | DI.MRI.S_ITS ---
PROCEDURE: MRFOOT LT WO CON INDICATIONS: STRESS FX OF THE METATARSALS TECHNIQUE: Multiphasic, multisequence MRI of the forefoot was performed, without intravenous contrast administration. COMPARISON: [facility], CR, XR FOOT 3 VIEWS WEIGHT BEARING LEFT, 06/25/2024, 10:11. FINDINGS: Image quality: Excellent. Bones and joints: Osseous edema is seen within the 3rd metatarsal head and distal shaft. There is subtle linear [id number] signal in the subchondral region of the metatarsal head best seen on long axis images, which may represent a nondisplaced fracture. No metatarsal shaft fracture. No other areas of trabecular bone injury. Hallux valgus. Vvom-jk-qfaqkihp degenerative changes at the 1st metatarsophalangeal joint and at the interphalangeal joints of the toes. Moderate degenerative changes at the 2nd and 3rd tarsometatarsal joints with subchondral cystic changes and subchondral edema. Soft tissues: Soft tissue edema is seen surrounding the distal 3rd metatarsal. The visualized plantar foot muscles demonstrate normal signal and bulk. Visualized flexor and extensor tendons appear intact, without tenosynovitis. The distal insertions of the peroneus brevis and longus tendons appear intact. The principal Lisfranc ligament appears intact. Sagittal images demonstrate no evidence for plantar plate tears. IMPRESSION: 1. Suspected nondisplaced incomplete subchondral fracture at the 3rd metatarsal head. Osseous edema is seen throughout the 3rd metatarsal head and proximal shaft with surrounding soft tissue edema. 2. Cmiw-iq-iynbyhlu degenerative changes in the midfoot and forefoot. Approved by: Hunter Mauricio M.D. on 06/26/2024 at 13:49
== END ==
PROVIDERS: PCP Family Medicine; Referring Provider Orthopaedic Surgery Foot and Ankle Surgery; Visit Provider Orthopaedic Surgery Foot and Ankle Surgery
DX: M84.376A Stress fracture, unspecified foot, initial encounter for fracture (principal); R60.0 Localized edema
CPT/HCPCS: 73718

== ENCOUNTER → 2024-09-25 09:11 | Outpatient (CLI) | payer BC, SELFPAY ==
[2023-02-03 14:40] VITALS: BMI 49.4
[2024-09-25 09:45] LABS: Estimated Glomerular Filt Rate > 60 mL/min (>60)
--- NOTE | 2024-09-25 10:16 | DI.CT.S_ITS ---
PROCEDURE: CT ABDOMEN PELVIS W CON INDICATIONS: constipation TECHNIQUE: After the administration of intravenous contrast, axial sections acquired from the lung bases to the pubic symphysis. Coronal and sagittal reformats were performed. For radiation dose reduction, the following was used: automated exposure control, adjustment of mA and/or kV according to patient size. COMPARISON: [facility], CT, CT ABDOMEN PELVIS W CON, 12/07/2019, 7:48. FINDINGS: Image quality: Diagnostic. Lower Chest: Lung bases are clear. Small-moderate sized hiatal hernia with mild circumferential wall thickening of the distal esophagus. No layering fluid seen. Heart size is normal. Coronary atherosclerotic vascular calcifications are noted. ABDOMEN: Liver: No solid mass. Gallbladder: Surgically absent Biliary ducts: No biliary dilation. Pancreas: No ductal dilation. Spleen: Size is within normal limits. Adrenal Glands: Stable small right adrenal nodule measuring 1.3 cm. Kidneys and Ureters: No hydronephrosis. No solid mass. No complex renal cystic lesion which requires follow up. Redemonstration of 7 mm nonobstructing left renal stone. Tiny punctate right renal stone identified. No hydronephrosis on either side. No significant perinephric or periureteral stranding. Bilateral ureters are normal in course and caliber. Stomach and Bowel: Normal colonic caliber, without significant wall thickening. Scattered colonic diverticula without acute inflammation. No evidence for small bowel obstruction or associated inflammatory changes. Normal appendix. Stable appearance of prior gastric lap band. Peritoneum: No abnormal intraperitoneal fluid. No free air. Ventral Wall: There is a fat-containing umbilical hernia without acute inflammation. Abdominal Nodes: No retroperitoneal or mesenteric adenopathy by size criteria. Vessels: Aorta and inferior vena cava are normal in size. PELVIS: Pelvic Organs: Unremarkable. Bladder: No bladder wall thickening, accounting for underdistention. Pelvic Nodes: No enlarged lymph nodes. Miscellaneous: No inguinal hernias are seen. Bones: No aggressive osseous abnormality. No acute vertebral body compression fractures. Multilevel spondylitic changes throughout the imaged spine. No suspicious osseous lesions. IMPRESSION: 1. Stable postoperative changes of gastric lap band with small hiatal hernia and mild circumferential wall thickening of the distal esophagus. Findings may be related to esophagitis/gastroesophageal reflux. 2. Stable appearance of nonobstructing bilateral renal stones. No hydronephrosis or acute inflammatory changes. 3. Colonic diverticulosis without acute diverticulitis. 4. Normal appendix. 5. Coronary artery atherosclerosis. 6. Status post cholecystectomy. Dictated by: Latrell Allred M.D. on 09/25/2024 at 14:02 Approved by: Latrell Allred M.D. on 09/25/2024 at 14:12
== END ==
PROVIDERS: Radiology Diagnostic Radiology; PCP Family Medicine; Referring Provider Family Medicine; Visit Provider Family Medicine
DX: K59.00 Constipation, unspecified (principal); K44.9 Diaphragmatic hernia without obstruction or gangrene; K57.90 Diverticulosis of intestine, part unspecified, without perforation or abscess without bleeding; N20.0 Calculus of kidney; I25.10 Atherosclerotic heart disease of native coronary artery without angina pectoris; E27.9 Disorder of adrenal gland, unspecified; K42.9 Umbilical hernia without obstruction or gangrene; Z98.84 Bariatric surgery status; Z90.49 Acquired absence of other specified parts of digestive tract
CPT/HCPCS: 36415; 74177; 82565; Q9967

== ENCOUNTER → 2024-10-08 11:15 | Outpatient (CLI) | payer BC, SELFPAY ==
[2023-02-03 14:40] VITALS: BMI 49.4
[2024-10-08 13:03] LABS: Cholesterol 219 mg/dL (140-199); HDL Cholesterol 50 mg/dL (40-60)
[2024-10-08 13:41] LABS: LDL Cholesterol Calculated 148 mg/dL (<100); Triglycerides 106 mg/dL (35-150)
== END ==
PROVIDERS: PCP Family Medicine; Referring Provider Family Medicine; Visit Provider Family Medicine
DX: I10 Essential (primary) hypertension (principal)
CPT/HCPCS: 36415; 80061

== ENCOUNTER → 2024-11-15 11:16 | Outpatient (CLI) | payer BC, SELFPAY ==
[2023-02-03 14:40] VITALS: BMI 49.4
--- NOTE | 2024-11-15 11:17 | DI.MRI.S_ITS ---
PROCEDURE: MR LOWER LEG LT WO CON COMPARISON: [facility], CR, XR KNEE 4+ VIEWS LEFT, 10/22/2024, 11:03. INDICATIONS: RUPTURE OF LT GASTROCNEMIUS TENDON FINDINGS: Image quality: Excellent. Susceptibility artifact from bilateral total knee arthroplasties limits evaluation to some extent. Bone: Intraosseous ganglion cyst formation is present at the proximal fibular head (01/29). The marrow signal is otherwise within normal limits. There is no pathologic fracture or dislocation. Joint: There is a left knee total arthroplasty. There is a small left tibiotalar joint effusion. Muscle: There is an L pattern type tear of the proximal medial head of the gastrocnemius muscle, with disruption of the anteromedial gastrocnemius aponeurosis; the tear extends through the medial gastrocnemius toward its lateral aponeurosis border with the lateral head of the gastrocnemius (06/29-). There is a crescentic hematoma between the medial aponeurosis and the medial margin of the gastrocnemius musculature measuring 9.2 cm in length and 1.1 cm in width (02/01; 07/12). Otherwise, muscle bulk is preserved. Tendon: The visualized flexor and extensor tendons are within normal limits. Nerve: The popliteal and common peroneal nerves are normal in signal and caliber. Vessels: The dominant flow voids of the popliteal artery and vein are preserved. Lymph node: There is no popliteal lymphadenopathy. Other: There is no other acute abnormality. IMPRESSION: Acute partial L-pattern type tear of the proximal medial head of the gastrocnemius muscle with disruption of the anteromedial aponeurosis and a 9.2 cm long hematoma. Dictated by: Qasim Galvan M.D. on 11/18/2024 at 9:03 Approved by: Qasim Galvan M.D. on 11/18/2024 at 10:01
== END ==
PROVIDERS: PCP Family Medicine; Referring Provider Orthopaedic Surgery Foot and Ankle Surgery; Visit Provider Orthopaedic Surgery Foot and Ankle Surgery
DX: S86.112A Strain of other muscle(s) and tendon(s) of posterior muscle group at lower leg level, left leg, initial encounter (principal); M79.81 Nontraumatic hematoma of soft tissue
CPT/HCPCS: 73718

== ENCOUNTER → 2024-11-26 11:41 | Outpatient (CLI) | payer BC, SELFPAY ==
[2023-02-03 14:40] VITALS: BMI 49.4
[2024-11-26 12:42] LABS: Cholesterol 219 mg/dL (140-199); HDL Cholesterol 51 mg/dL (40-60); LDL Cholesterol Calculated 145 mg/dL (<100); Triglycerides 114 mg/dL (35-150)
== END ==
LOC: LAB 11:42
PROVIDERS: PCP Family Medicine; Referring Provider Family Medicine; Visit Provider Family Medicine
DX: E78.5 Hyperlipidemia, unspecified (principal)
CPT/HCPCS: 36415; 80061

== ENCOUNTER → 2024-12-11 07:40 | Outpatient (CLI) | payer BC, SELFPAY ==
[2023-02-03 14:40] VITALS: BMI 49.4
--- NOTE | 2024-12-11 07:41 | DI.NM.S_ITS ---
PROCEDURE: NM EXERCISE TREADMILL NON NUC COMPARISON: None INDICATIONS: Angina FINDINGS: Rest ECG sinus rhythm 74 bpm. Macho protocol 6:08, maximum heart rate 153 bpm (98% peak predicted), peak blood pressure 165/81, 7.0 METS, LAWSON +3%. Exercise ECG sinus tachycardia, no ST segment changes or arrhythmia. The patient did not report exercise-induced chest discomfort. IMPRESSION: Low risk study. No evidence of exercise-induced ischemia or arrhythmia. Normal hemodynamic response. Fair exercise capacity. Dictated by: Jennifer Pinedo D.O. on 12/11/2024 at 17:09 Approved by: Jennifer Pinedo D.O. on 12/11/2024 at 17:17
== END ==
PROVIDERS: PCP Family Medicine; Referring Provider Family Medicine; Visit Provider Family Medicine
DX: I20.89 Other forms of angina pectoris (principal)
CPT/HCPCS: 93017

== ENCOUNTER → 2025-03-28 09:34 | Outpatient (CLI) | payer MEDICARE, BC, SELFPAY ==
[2023-02-03 14:40] VITALS: BMI 49.4
[2025-03-28 10:31] LABS: Cholesterol 190 mg/dL (140-199); HDL Cholesterol 51 mg/dL (40-60); LDL Cholesterol Calculated 122 mg/dL (<100); Triglycerides 85 mg/dL (35-150)
== END ==
LOC: LAB 09:37
PROVIDERS: PCP Family Medicine; Referring Provider Family Medicine; Visit Provider Family Medicine
DX: I10 Essential (primary) hypertension (principal); E66.01 Morbid (severe) obesity due to excess calories; E78.5 Hyperlipidemia, unspecified; Z68.42 Body mass index [BMI] 45.0-49.9, adult
CPT/HCPCS: 36415; 80061

== ENCOUNTER → 2025-05-08 11:01 | Outpatient (CLI) | payer MEDICARE, BC, SELFPAY ==
[2023-02-03 14:40] VITALS: BMI 49.4
[2025-05-08 12:40] LABS: Add Manual Diff / Slide Review NO; Hematocrit 41.9 % (36-46); Hemoglobin 14.3 g/dL (12.0-16.0); Lymphocytes Absolute Auto 1800 /uL (1100-4500); Mean Corpuscular HGB Conc 34.1 % (30-36); Mean Corpuscular Hemoglobin 28.8 PG (26-34); Mean Corpuscular Volume 84.3 fL (80-100); Platelet Count 339 X10^3/uL (150-400)
== END ==
PROVIDERS: PCP Family Medicine; Referring Provider Physician Assistant; Visit Provider Physician Assistant
DX: M25.562 Pain in left knee (principal); Z96.652 Presence of left artificial knee joint
CPT/HCPCS: 36415; 85025; 85651; 86140

== ENCOUNTER → 2025-09-25 08:26 | Outpatient (CLI) | payer MEDICARE, BC, SELFPAY ==
[2023-02-03 14:40] VITALS: BMI 49.4
--- NOTE | 2025-09-25 08:28 | DI.MG.S_ITS ---
MM screening mammo BI: 09/25/2025. BI-RADS: 2 CLINICAL: 65-year old female for bilateral screening mammogram. Tyrer-Cuzick lifetime risk of 6.2%. No personal or first-degree family history of breast cancer. PRIOR EXAMS 01/04/2024, 05/24/2022, 07/17/2020, 06/11/2020. MAMMOGRAPHY TECHNIQUE: 2D and 3D (tomosynthesis) digital mammographic views obtained, with additional images as needed for full coverage. Current study was also evaluated with a Computer Aided Detection (CAD) system. DENSITY B. There are scattered areas of fibroglandular density. MAMMOGRAPHY FINDINGS Right: Benign-appearing calcification noted on the right. There are no suspicious masses, calcifications, or other findings in the breast. Left: Benign-appearing calcifications noted on the left. There are no suspicious masses, calcifications, or other findings in the breast. IMPRESSION: * No evidence of malignancy with benign findings. RECOMMENDATIONS Bilateral * Annual screening mammography. OVERALL ASSESSMENT CATEGORY BI-RADS-2: Benign. The [employer] recommends annual screening mammography beginning at age 40 for women with average risk of breast cancer. ELECTRONICALLY SIGNED: Latrell Allred M.D. on 09/26/2025 at 01:04:08 AM PT Interpreting Station ID: [id number]
[2025-09-25 09:21] LABS: Hemoglobin A1C% w Est Avg Glu 5.1 % (4.0-6.0)
[2025-09-25 09:43] LABS: Alanine Aminotransferase 14 IU/L (<35); Albumin 4.4 g/dL (3.5-5.0); Albumin Globulin Ratio 1.6 (1.0-2.8); Alkaline Phosphatase 95 U/L (38-126); Blood Urea Nitrogen 14 mg/dL (7-17); Calcium 9.2 mg/dL (8.4-10.2); Carbon Dioxide 26 mmol/L (22-32); Cholesterol 222 mg/dL (140-199); Estimated Glomerular Filt Rate > 60 mL/min (>60); Globulin 2.8 g/dL (1.7-4.1); Glucose 83 mg/dL (70-99); HDL Cholesterol 63 mg/dL (40-60); HEMOLYSIS < 15 (0-50); Potassium 3.6 mmol/L (3.4-5.1); Sodium 134 mmol/L (137-145); Total Protein 7.2 g/dL (6.3-8.2); Triglycerides 92 mg/dL (35-150)
[2025-09-25 09:50] LABS: Microalbumi Creatinin Ratio Ur 9.0 ug/mg CR (<30)
[2025-09-25 10:03] LABS: Chloride 99 mmol/L (98-107)
== END ==
LOC: MAMMO 08:27
PROVIDERS: PCP Family Medicine; Referring Provider Family Medicine; Visit Provider Family Medicine
DX: Z12.31 Encounter for screening mammogram for malignant neoplasm of breast (principal); I10 Essential (primary) hypertension
CPT/HCPCS: 36415; 77063; 77067; 80053; 80061; 82043; 82570; 83036

== ENCOUNTER 2025-10-01 09:27 | Emergency (ER) | payer MEDICARE, BC, SELFPAY ==
[2023-02-03 14:40] VITALS: BMI 49.4
[2025-10-01 09:49] VITALS: BP 146/89; PULSE 70; RESP 16; TEMP 36.4; O2SAT 99; BMI 31.1
--- NOTE | 2025-10-01 09:52 | EKG_ITS ---
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
--- NOTE | 2025-10-01 09:53 | ED.GENADULT ---
HPI - General Adult General Chief complaint: Chest Pain Stated complaint: possible heart attack, last night Time Seen by Provider: 10/01/25 09:36 History of Present Illness HPI narrative: 65-year-old woman history of asthma, hypertension, hypothyroidism, hyperlipidemia with chest pain twinges on September 26. Saw her primary care physician yesterday and was told to come to the emergency department symptoms worsen. Over the course of the evening we will occur twice with pressure and pain, far more than the twinges she had noticed before. It was left-sided, or, worse when she is lying on her left side. Worse when she is laying flat. No associated with dyspnea or diaphoresis. She notes that she does feel a bit lightheaded this morning as well. She did have simple treadmill test in November of this year with no ischemic changes appreciated. Related Data Home Medications ?Medication ?Instructions ?Recorded ?Confirmed curica 1,405 mg PO DAILY 06/08/18 09/30/25 multivitamin 1 tab PO DAILY 06/08/18 09/30/25 omega 3 1,000 mg PO DAILY 06/08/18 09/30/25 probiotic 1 cap PO DAILY 06/08/18 09/30/25 magnesium 200 mg tablet 400 mg PO DAILY 11/05/18 09/30/25 cholecalciferol (vitamin D3) 5,000 unit PO DAILY 06/15/22 09/30/25 Previous Rx's ?Medication ?Instructions ?Recorded psyllium husk 3.4 gram/5.8 gram See Rx Instructions .Route 04/28/23 oral powder (Fiber (with .COMPLEX #660 grams aspartame)) beclomethasone dipropionate 40 2 inh inhalation BID #31.8 grams 03/13/24 mcg/actuation HFA breath activated aerosol (Qvar RediHaler) albuterol sulfate 90 mcg/actuation 2 puff inhalation Q4HR PRN 03/19/24 aerosol inhaler (Ventolin HFA) bronchospasm #8.5 grams budesonide 90 mcg/actuation breath 1 inh inhalation BID #1 ea 04/01/24 activated powder inhaler (Pulmicort Flexhaler) losartan 25 mg tablet 25 mg PO DAILY #90 tabs 08/06/24 hydrocortisone acetate 25 mg 25 mg FL DAILY #24 ea 10/11/24 rectal suppository (Anusol-HC) nirmatrelvir 300 mg (150 mg See Rx Instructions PO .COMPLEX 04/20/25 x2)-ritonavir 100 mg tablet,dose #30 ea pack (Paxlovid) levothyroxine 50 mcg tablet 50 mcg PO QAM #90 tabs 05/20/25 (Synthroid) triamterene 37.5 1 cap PO DAILY #90 caps 07/21/25 mg-hydrochlorothiazide 25 mg capsule nystatin 100,000 unit/gram topical 1 applic topical BID #30 grams 09/30/25 cream simvastatin 10 mg tablet 10 mg PO BEDTIME #90 tabs 09/30/25 triamcinolone acetonide 0.025 % 1 applic topical BID #80 grams 09/30/25 topical cream omeprazole 40 mg capsule,delayed 40 mg PO DAILY #14 caps 10/01/25 release Allergies Allergy/AdvReac Type Severity Reaction Status Date / Time erythromycin base AdvReac Mild Rash Verified 09/30/25 10:54 (ERYTHROMYCIN BASE) Review of Systems Review of Systems Narrative: Pertinent positive and negative findings as per HPI Patient History Medical History (Updated 10/01/25 @ 16:49 by Nena Coon MD) Hyperlipidemia delivery delivered Asthma Kidney stones Palpitations Paroxysmal SVT (supraventricular tachycardia) Seasonal allergies HTN (hypertension) Essential tremor Intermittent asthma Benign essential hypertension Hypothyroid Surgical History S/P excision of lipoma (10/11/16) Hx of lithotripsy Hx of laparoscopic gastric banding (~2004) Status post surgery (07/23/08) Family History Father Malignant neoplasm of colon, unspecified part of colon Family/Other Tremor of unknown origin Mother Hypertension Heart disease Social History marital status: household members: spouse and children occupational status: employed alcohol intake: current substance use type: does not use alcohol intake frequency: a few times a month Exam Initial Vital Signs Initial Vital Signs: Vital Signs Temperature 97.5 F L 10/01/25 09:49 Pulse Rate 70 10/01/25 09:49 Respiratory Rate 16 10/01/25 09:49 Blood Pressure 146/89 H 10/01/25 09:49 Pulse Oximetry 99 10/01/25 09:49 Oxygen Delivery Method Room Air 10/01/25 09:49 General: Healthy appearing, in no acute distress. Able to give a complete and coherent history. Well-nourished well-developed HEENT: Moist mucous membranes, normal sclera with reactive pupils, Neck: No JVD, supple Respiratory: Lungs are clear to auscultation, no wheezing no rales no rhonchi. Full and symmetrical air movement Cardiac: Regular rate and rhythm no murmurs no bruits Abdomen: Soft, mild left upper quadrant tenderness, no rebound or guarding Skin: Warm and dry, no rashes Neurologic: Grossly neurologically intact with no obvious asymmetries or abnormalities Extremities: No trauma, well perfused Psych: Cooperative, appropriate insight and affect Course Orders Ordered: ED Orders 10/01/25 09:52 EKG-12 Lead Stat 10/01/25 09:58 XR chest 1V Stat 10/01/25 10:00 Complete Blood Count AUTO DIFF Stat Comprehensive Metabolic Panel Stat Lipase Stat Magnesium Stat NT-proBNP (BNP-Adult 18+) Stat PTT Partial Thromboplastin Richar Stat Prothrombin Time INR Stat Troponin & CK Cardiac Panel Stat 10/01/25 12:03 Troponin I Stat Discontinued Medications Aspirin (Aspirin 81 Mg Chew Tab) 324 mg PO NOW ONE Stop: 10/01/25 09:59 Last Admin: 10/01/25 10:01 Dose: 324 mg Documented By: CTS Vital Signs Vital signs: Vital Signs - 8 hr 10/01/25 09:49 10/01/25 13:10 10/01/25 16:09 Temperature 97.5 F L 99.4 F Pulse Rate 70 72 70 Respiratory Rate 16 20 16 Blood Pressure 146/89 H 129/76 136/81 Pulse Oximetry 99 98 99 Oxygen Delivery Method Room Air Room Air Room Air Medical Decision Making Lab Data 10/01/25 10:00 10/01/25 10:00 Labs: Lab Results 10/01/25 10/01/25 Range/Units 10:00 12:03 WBC 6.6 (4.5-11.0) X10^3/uL RBC 5.08 (4.0-5.2) X10^6/uL Hgb 14.8 (12.0-16.0) g/dL Hct 42.7 (36-46) % MCV 84.0 (80-100) fL MCH 29.0 (26-34) PG MCHC 34.6 (30-36) % RDW 13.4 (11.6-14.8) % Plt Count 295 (150-400) X10^3/uL Neut % (Auto) 71.6 (50-75) % Lymph % (Auto) 16.6 L (25-40) % [place] % (Auto) 10.2 (3-14) % Eos % (Auto) 0.8 L (2-4) % Baso % (Auto) 0.8 (0-2) % Neut # (Auto) 4700 (1348-2940) /uL Lymph # (Auto) 1100 (9656-6815) /uL [place] # (Auto) 700 (0-900) /uL Eos # (Auto) 100 (0-450) /uL Baso # (Auto) 100 (0-100) /uL PT 11.0 (9.4-12.5) SECONDS INR 1.0 (0.9-1.3) APTT 32 (25.1-36.5) SECONDS Sodium 138 (137-145) mmol/L Potassium 3.6 (3.4-5.1) mmol/L Chloride 103 (98-107) mmol/L Carbon Dioxide 25 (22-32) mmol/L BUN 13 (7-17) mg/dL Creatinine 0.72 (0.52-1.04) mg/dL Estimated GFR > 60 (>60) mL/min BUN/Creatinine Ratio 18.1 (6-22) Glucose 93 (70-99) mg/dL Calcium 9.3 (8.4-10.2) mg/dL Magnesium 1.9 (1.6-2.3) mg/dL Total Bilirubin 0.7 (0.2-1.3) mg/dL AST 25 (14-36) IU/L ALT 15 (<35) IU/L Alkaline Phosphatase 91 (38-126) U/L Total Creatine Kinase 47 (30-135) U/L Troponin I < 0.012 < 0.012 (0.01-0.034) ng/mL NT-Pro-B Natriuret Pep 165 H (<125) pg/mL Total Protein 7.5 (6.3-8.2) g/dL Albumin 4.4 (3.5-5.0) g/dL Globulin 3.1 (1.7-4.1) g/dL Albumin/Globulin Ratio 1.4 (1.0-2.8) Lipase 46 (23-300) U/L MDM Narrative Medical decision making narrative: CC: Chest pain increasing over the last number of days Complicating co-morbidities: Asthma, hypertension, hyperlipidemia, family history of early coronary disease Data collected from: patient Social determinants of health that may influence the patients condition: Patient has a self-described very stressful job Medical records reviewed: Primary care note from September 30 is reviewed. Similar complaints 2 today Exercise stress test done on December 11, 2024 was interpreted as low risk, normal exam Differential considered: Acute coronary syndrome, pericarditis, pneumonia Exam documented above, pertinent findings include: Tenderness with palpation along the left mid axillary line remainder of exam is benign Lab Test results independently reviewed as above. Pertinent findings: CBC is unremarkable Chemistries are reassuring 1st and 2nd troponins are undetectable Lipase is not elevated Independently reviewed EKG: Sinus rhythm at a rate of 80 with no acute ischemic changes Imaging studies independently reviewed: Chest x-ray shows no acute process Treatments: 325 mg of aspirin Discussion: 65-year-old woman with almost a week of left-sided chest pain some of it is reproducible. She notes she has successfully lost almost 65 lb with significant effort and many of her previous reflux type symptoms have completely resolved. She is wondering if esophagitis could be contributing and that is a possibility. We talked about a 14 day trial of omeprazole and prescription for that will be called in. There is no evidence of acute coronary syndrome, pericarditis, pneumonia, pneumothorax, pulmonary embolism, congestive heart failure or any other type of infection. All of these negative findings are reviewed in detail with her with questions answered. At this point reassurance is given, I have referred her back to her primary care physician if she continues to have symptoms a nuclear medicine stress test might be 1 of the next choices to again confirm absence of cardiac involvement. She is safe for discharge Additional Information: Heart score = 1 Discharge Plan Departure Patient Disposition: Home Clinical Impression: Atypical chest pain Instructions: DI for Atypical Chest Pain Activity Restrictions/Additional Instructions: Thank you for coming in today Your workup was very reassuring. I did not find any evidence of heart attack or heart attack like syndrome, pericarditis, collapsed lung, pneumonia or other life-threatening abnormality. With pain that can not be reproduced with pressure another explanation could simply be musculoskeletal strain and tenderness. If that is the case typically ibuprofen we will be of benefit. I typically recommend 400 mg of ibuprofen (2 [id number] pills) and 1 Tylenol every 6 hours An alternative explanation could be esophageal irritation. If suggested 14 days of omeprazole, stomach acid tracy to see if this influences your pain. Prescription for this was electronically sent to [facility] in [place] Please do schedule follow up appointment with your primary care physician and if symptoms worsen or significantly change feel free to return to the ER Prescriptions: New omeprazole 40 mg capsule,delayed release(DR/EC) 40 mg PO DAILY Qty: 14 0RF No Action hydrocortisone acetate [Anusol-HC] 25 mg suppository 25 mg FL DAILY Qty: 24 0RF simvastatin 10 mg tablet 10 mg PO BEDTIME Qty: 90 3RF triamcinolone acetonide 0.025 % cream 1 applic topical BID Qty: 80 3RF nystatin 100,000 unit/gram cream 1 applic topical BID Qty: 30 3RF Qvar RediHaler 40 mcg/actuation HFA aerosol breath activated 2 inh INHALATION BID Qty: 31.8 3RF albuterol sulfate [Ventolin HFA] 90 mcg/actuation HFA aerosol inhaler 2 puff inhalation Q4HR PRN (Reason: bronchospasm) Qty: 8.5 3RF Pulmicort Flexhaler 90 mcg/actuation aerosol powdr breath activated 1 inh inhalation BID Qty: 1 3RF losartan 25 mg tablet 25 mg PO DAILY Qty: 90 3RF Paxlovid 300 mg (150 mg x 2)-100 mg tablets,dose pack See Rx Instructions PO .COMPLEX Qty: 30 0RF Rx Instructions: take TWO 150 mg tablets of nirmatrelvir with ONE 100 mg tablet of ritonavir twice daily for 5 days PO levothyroxine [Synthroid] 50 mcg tablet 50 mcg PO QAM Qty: 90 2RF triamterene-hydrochlorothiazid 37.5-25 mg capsule 1 cap PO DAILY Qty: 90 0RF magnesium 200 mg tablet 400 mg PO DAILY multivitamin 1 tab PO DAILY curica 1,405 mg PO DAILY omega 3 1,000 mg PO DAILY probiotic 1 cap PO DAILY cholecalciferol (vitamin D3) 5,000 unit PO DAILY Fiber (with aspartame) 3.4 gram/5.8 gram powder See Rx Instructions .ROUTE .COMPLEX Qty: 660 0RF Rx Instructions: Take 1 tbsp with a large glass of water twice daily. This is preventative and will help with hemorrhoids and diverticula. It also prevents the formation of polyps. Referrals: Erica White MD [Primary Care Provider, Family Practice] Stand Alone Forms: Patient Portal/API
--- NOTE | 2025-10-01 09:58 | DI.RAD.S_ITS ---
PROCEDURE: XR CHEST 1V INDICATIONS: Chest Pain TECHNIQUE: One view of the chest was acquired. COMPARISON: [facility], CR, XR CHEST 1V, 02/13/2023, 14:28. FINDINGS: Surgical changes and devices: Cholecystectomy clips. Lungs and pleura: Lungs are clear. No pleural effusions or pneumothorax. Mediastinum: Mediastinal contours appear normal. Heart size is normal. Bones and chest wall: No suspicious bony lesions. Overlying soft tissues appear unremarkable. IMPRESSION: No acute pulmonary process. Dictated by: Brandi Franklin M.D. on 10/01/2025 at 10:45 Approved by: Brandi Franklin M.D. on 10/01/2025 at 10:47
[2025-10-01] MEDS: ASPIRIN 81 MG CHEW TAB 324 MG PO (10:01)
[2025-10-01 10:11] LABS: Add Manual Diff / Slide Review NO; Hematocrit 42.7 % (36-46); Hemoglobin 14.8 g/dL (12.0-16.0); Lymphocytes Absolute Auto 1100 /uL (1100-4500); Mean Corpuscular HGB Conc 34.6 % (30-36); Mean Corpuscular Hemoglobin 29.0 PG (26-34); Mean Corpuscular Volume 84.0 fL (80-100); Platelet Count 295 X10^3/uL (150-400)
[2025-10-01 10:19] LABS: INR 1.0 (0.9-1.3); Prothrombin Time 11.0 SECONDS (9.4-12.5)
[2025-10-01 10:22] LABS: PTT Partial Thromboplastin Tim 32 SECONDS (25.1-36.5)
[2025-10-01 10:23] LABS: Alanine Aminotransferase 15 IU/L (<35); Albumin 4.4 g/dL (3.5-5.0); Albumin Globulin Ratio 1.4 (1.0-2.8); Alkaline Phosphatase 91 U/L (38-126); Blood Urea Nitrogen 13 mg/dL (7-17); Calcium 9.3 mg/dL (8.4-10.2); Carbon Dioxide 25 mmol/L (22-32); Chloride 103 mmol/L (98-107); Creatine Kinase 47 U/L (30-135); Estimated Glomerular Filt Rate > 60 mL/min (>60); Globulin 3.1 g/dL (1.7-4.1); Glucose 93 mg/dL (70-99); HEMOLYSIS < 15 (0-50); Lipase 46 U/L (23-300); Magnesium 1.9 mg/dL (1.6-2.3); Potassium 3.6 mmol/L (3.4-5.1); Sodium 138 mmol/L (137-145); Total Protein 7.5 g/dL (6.3-8.2)
[2025-10-01 10:34] LABS: NT-proBNP (BNP-Adult 18+) 165 pg/mL (<125); Troponin I < 0.012 ng/mL (0.01-0.034)
[2025-10-01 12:34] LABS: Troponin I < 0.012 ng/mL (0.01-0.034)
[2025-10-01 13:10] VITALS: BP 129/76; PULSE 72; RESP 20; TEMP 37.4; O2SAT 98
[2025-10-01 16:09] VITALS: BP 136/81; PULSE 70; RESP 16; O2SAT 99
== END 2025-10-01 16:56 | disposition home or self-care (01) ==
PROVIDERS: Emergency Provider Emergency Medicine; PCP Family Medicine
DX: R07.89 Other chest pain (principal); R42 Dizziness and giddiness
CPT/HCPCS: 36415; 71045; 80053; 82550; 83690; 83735; 83880; 84484; 85025; 85610; 85730; 93005; 99283; 99284